=== PATIENT | male | born 1960 | race Caucasian/White ===

== ENCOUNTER 2019-09-18 15:15 | Inpatient (IN) | payer OTHER ==
[~2019-09-18] VITALS: Ht 188 cm; Wt 93.4 kg
--- OUTSIDE RECORDS SUMMARY | 2019-09-18 15:16 | XMS REPORT ---
Author Author [facility] Address Unknown Phone Unavailable Care Team Providers Care Speech Therapy Assistant Name Role Phone Unavailable Unavailable Payers Payer Name Policy Type Policy Number Effective Date Expiration Date Problems This patient has no known problems. Allergies, Adverse Reactions, Alerts Allergy Name Allergy Type Status Severity Reaction(s) Onset Date Inactive Date Treating Clinician Comments No Known Allergies DA Active U 2019-09-17 00:00:00 Medications This patient has no known medications. Results Test Description Test Time Test Comments Text Results Atomic Results Result Comments PROTHROMBIN TIME 2019-09-17 18:23:00 PROTHROMBIN TIME PATIENT (test code=PTP) 12.1 seconds 9.0-13.0 INTERNATIONAL NORMAL RATIO (test code=INR) 1.2 0.8-1.2 The therapeutic range for oral anticoagulant therapy formost indications is an international normalized ratio (INR)of between 2.0 and 3.0. The recommended therapeutic INRrange for various clinical situations is listed below: Clinical Situation INR range Pulmonary e mbolism treatment (2.0-3.0)Venous thrombosis treatmentVenous thrombosis prophylaxis (high risk surgery)Prevention of systemic embolism from: Acute myocardial infarction Valvular heart disease Atrial fibrillation Mechanical prosthetic heart valves (2.5-3.5) IS PATIENT ON ANTICOAGULANTS? NTHROMBOPLASTIN TIME [id number] 18:23:00* Test Item Value Reference Range Comments THROMBOPLASTIN TIME PARTIAL (test code=PTT) 31.2 seconds 25.5-34.3 Therapeutic Range for patients on Heparin Therapy is 2 to2.5 times their baseline PTT level. IS PATIENT ON ANTICOAGULANTS? NCOMPREHENSIVE METABOLIC [id number] 18:09:00 * Test Item Value Reference Range Comments SODIUM (test code=NA) 126 mmol/L 136-145 POTASSIUM (test code=K) 3.6 mmol/L 3.5-5.1 CHLORIDE (test code=CL) 93 mmol/L 101-109 CARBON DIOXIDE (test code=CO2) 25.0 mmol/L 21-32 ANION GAP (test code=GAP) 12 mmol/L 10-20 GLUCOSE (test code=GLU) 103 mg/dL 74-106 BLOOD UREA NITROGEN (test code=BUN) 23 mg/dL 3-21 CREATININE (test code=CREAT) 1.48 mg/dL 0.55-1.3 BUN/CREATININE RATIO (test code=BUN/CREA) 15.5 10-20 TOTAL PROTEIN (test code=PROT) 7.1 g/dL 6.5-8.4 ALBUMIN (test code=ALB) 3.0 g/dL 3.4-4.8 GLOBULIN (test code=GLOB) 4.1 G/DL 1-10 ALBUMIN/GLOBULIN RATIO (test code=A/G) 0.73 RATIO 0.75-1.50 CALCIUM (test code=CA) 8.1 mg/dL 8.4-10.2 BILIRUBIN TOTAL (test code=BILT) 1.50 mg/dL 0.0-1.0 SGOT/AST (test code=AST) 41 U/L 6-32 SGPT/ALT (test code=ALT) 11 U/L 12-78 Note: Change in REFERENCE RANGE due to new reagent method. ALKALINE PHOSPHATASE TOTAL (test code=ALKP) 88 U/L 38-126 CBC W/AUTO [id number] 17:54:00* Test Item Value Reference Range Comments WHITE BLOOD CELL (test code=WBC) 15.6 K/mm3 4.5-12.5 RED BLOOD CELL (test code=RBC) 4.10 mill/mm3 4.0-5.8 HEMOGLOBIN (test code=HGB) 14.4 gram/dL 13.0-17.5 HEMATOCRIT (test code=HCT) 42.2 % 42.0-52.0 MEAN CELL VOLUME (test code=MCV) 102.9 fL 80-98 MEAN CELL HGB (test code=MCH) 35.1 picogram 27.0-33.0 MEAN CELL HGB CONCETRATION (test code=MCHC) 34.1 gram/dL 33.0-36.0 RED CELL DISTRIBUTION WIDTH (test code=RDW) 12.9 % 11.6-16.2 RED CELL DISTRIBUTION WIDTH SD (test code=RDW-SD) 50.2 fL 37.0-51.0 PLATELET COUNT (test code=PLT) 105 K/mm3 150-450 MEAN PLATELET VOLUME (test code=MPV) 10.4 fL 6.7-11.0 NEUTROPHIL % (test code=NT%) 91.8 % 39.0-69.0 LYMPHOCYTE % (test code=LY%) 4.0 % 25.0-55.0 MONOCYTE % (test code=MO%) 3.7 % 0.0-10.0 EOSINOPHIL % (test code=EO%) 0.1 % 0.0-5.0 BASOPHIL % (test code=BA%) 0.1 % 0.0-1.0 NEUTROPHIL # (test code=NT#) 14.30 K/mm3 1.8-7.7 LYMPHOCYTE # (test code=LY#) 0.62 K/mm3 1.0-5.0 MONOCYTE # (test code=MO#) 0.58 K/mm3 0-0.8 EOSINOPHIL # (test code=EO#) 0.02 K/mm3 0.0-0.5 BASOPHIL # (test code=BA#) 0.02 K/mm3 0.0-0.2 MANUAL DIFF REQUIRED (test code=MDIFF) NO
[2019-09-18] MEDS ORDERED: MORPHINE SULFATE INJ 4 MG/ML INJ 1ML IV STA (15:56)
[2019-09-18] MEDS ORDERED: ONDANSETRON HCL INJ 2MG/ML 2ML 2 MG/ML VIAL IV STA (15:56)
[2019-09-18] MEDS ORDERED: SODIUM CHLORIDE 0.9% 1000ML 1,000 ML IV STA (15:56)
[2019-09-18] MEDS ORDERED: PIPER-TAZ 3.375 GM 50 ML IV STA (15:56)
[2019-09-18 16:48] LABS: BASOPHILS % 0.3 % (0.0-1.0); EOSINOPHILS % 0.2 % (0.0-6.0); HEMATOCRIT 41.5 % (38.2-49.6); HEMOGLOBIN 14.2 g/dL (14.0-18.0); LYMPHOCYTES # (AUTO) 0.9 (1.0-3.2); MEAN CORPUSCULAR HEMOGLOBIN 35.1 pg (28-32); MEAN CORPUSCULAR HGB CONC 34.2 g/dL (31-35); MEAN CORPUSCULAR VOLUME 102.5 fL (81-99); MONOCYTES # (AUTO) 1.2 (0.2-0.8); MONOCYTES % 9.6 % (4.4-11.3); NEUTROPHILS # (AUTO) 10.7 (2.1-6.9); NEUTROPHILS % 82.3 % (38.7-80.0); RED BLOOD COUNT 4.05 x10e6/uL (4.3-5.7); RED CELL DISTRIBUTION WIDTH 13.2 % (11.7-14.4)
[2019-09-18 16:55] LABS: INR 1.1; PROTHROMBIN TIME 14.9 seconds (11.9-14.5)
[2019-09-18 16:56] LABS: PARTIAL THROMBOPLASTIN TIME 37.4 seconds (23.8-35.5)
[2019-09-18] MEDS ORDERED: VANCOMYCIN 1GM/NS 250 ML 250 ML IV ONE (17:00)
[2019-09-18 17:05] LABS: ALBUMIN 3.1 g/dL (3.5-5.0); ALBUMIN/GLOBULIN RATIO 0.7 (0.8-2.0); CALCIUM 8.5 mg/dL (8.4-10.2); CREATININE, SERUM 1.38 mg/dL (0.72-1.25)
[2019-09-18 17:12] LABS: CREATINE KINASE MB 1.6 ng/mL (0-5.0)
[2019-09-18 17:19] LABS: B-TYPE NATRIURETIC PEPTIDE2 60.6 pg/mL (0-100)
[2019-09-18 17:21] LABS: PLATELET COUNT 97 x10e3/uL (140-360)
--- NOTE | 2019-09-18 18:40 | Diagnostic Imaging Report ---
EXAMINATION: CHEST SINGLE (PORTABLE) INDICATION: ^LE SWELLING ^[id number] ^[id number]. COMPARISON: None FINDINGS: AP view TUBES and LINES: None. LUNGS: Lungs are well inflated. There is no evidence of pneumonia or pulmonary edema. PLEURA: No pleural effusion or pneumothorax. HEART AND MEDIASTINUM: The cardiomediastinal silhouette is unremarkable. BONES AND SOFT TISSUES: No acute osseous lesion. Soft tissues are unremarkable. UPPER ABDOMEN: No free air under the diaphragm. IMPRESSION: No acute thoracic abnormality. Signed by: Carlos Manzo MD on 09/18/2019 6:38 PM
[2019-09-18] MEDS ORDERED: VANCOMYCIN 1GM/NS 250 ML 250 ML IV SCH (20:00)
[2019-09-18] MEDS: SODIUM CHLORIDE 0.9% 1000ML 1,000 ML IV SCH (20:03)
[2019-09-18] MEDS ORDERED: BYSTOLIC10 MG PO (20:18)
[2019-09-18] MEDS ORDERED: LOSARTAN POTASS50 MG PO (20:18)
[2019-09-18] MEDS ORDERED: PANTOPRAZOLE SO40 MG PO (20:18)
[2019-09-18] MEDS ORDERED: PREGABALIN75 MG PO (20:18)
[2019-09-18] MEDS ORDERED: AMLODIPINE BESYL5 MG PO (20:18)
[2019-09-18] MEDS ORDERED: LEVOTHYROXINE25 MCG PO (20:18)
[2019-09-18 20:54] LABS: PLATELET ESTIMATE SLIGHTLY DECREASED; PLATELET MORPHOLOGY COMMENT FEW LARGE; RBC MORPHOLOGY COMMENT NORMAL
[2019-09-18] MEDS: PIPER-TAZ 3.375 GM 50 ML IV SCH (23:38)
[2019-09-19 06:28] LABS: BASOPHILS % 0.3 % (0.0-1.0); EOSINOPHILS % 0.2 % (0.0-6.0); HEMATOCRIT 35.8 % (38.2-49.6); HEMOGLOBIN 12.6 g/dL (14.0-18.0); LYMPHOCYTES # (AUTO) 0.8 (1.0-3.2); LYMPHOCYTES % 7.5 % (18.0-39.1); MEAN CORPUSCULAR HGB CONC 35.2 g/dL (31-35); MEAN CORPUSCULAR VOLUME 99.4 fL (81-99); MONOCYTES # (AUTO) 1.2 (0.2-0.8); MONOCYTES % 12.1 % (4.4-11.3); NEUTROPHILS % 79.3 % (38.7-80.0); PLATELET COUNT 84 x10e3/uL (140-360); RED CELL DISTRIBUTION WIDTH 13.1 % (11.7-14.4)
[2019-09-19 06:47] LABS: ALANINE AMINOTRANSFERASE 9 IU/L (0-55); ALBUMIN 2.6 g/dL (3.5-5.0); ALBUMIN/GLOBULIN RATIO 0.8 (0.8-2.0); ALKALINE PHOSPHATASE 81 IU/L (40-150); ANION GAP 9.3 mmol/L (8-16); BLOOD UREA NITROGEN 15 mg/dL (7-26); BUN/CREATININE RATIO 14 (6-25); CALCIUM 7.8 mg/dL (8.4-10.2); CARBON DIOXIDE 22 mmol/L (22-29); CHLORIDE 101 mmol/L (98-107); CREATININE, SERUM 1.08 mg/dL (0.72-1.25); EST GLOMERULAR FILTRATION RATE > 60 ML/MIN (60-); GLUCOSE 97 mg/dL (74-118); POTASSIUM 3.3 mmol/L (3.5-5.1); SODIUM 129 mmol/L (136-145)
[2019-09-19] MEDS: MORPHINE SULFATE INJ 4 MG/ML INJ 1ML IV PRN ×2 (08:15→23:37)
[2019-09-19] MEDS: PIPER-TAZ 3.375 GM 50 ML IV SCH (08:15)
[2019-09-19] MEDS: SODIUM CHLORIDE 0.9% 1000ML 1,000 ML IV SCH ×2 (08:39→13:00)
--- NOTE | 2019-09-19 10:54 | NUR ---
AMBULATORY TO RESTROOM. PT STILL DOES NOT WANT TO GET INTO GOWN. VSS. IVFS RUNNING. AAOX4. STEADY GAIT.
--- NOTE | 2019-09-19 12:28 | NUR ---
RCD PT FROM ER BY BED PT IS ALERT AND ORIENTED VITALS CHECKED PT RESTING ON BED VITALS CHECKED ADMISSION ASSESSMENT AND HISTORY DONE REDNESS ,CELLULITIS AND BLISTER ON LEFT LOWER LEG ,IV PATENT BY SALINE FLUSH INSTRUCTED PT AND FAMILY REGARDING HOSPITAL POLICY AND ROUTINE BED LOW AND LOCKED CALL LIGHT IN REACH
[2019-09-19] MEDS ORDERED: POTASSIUM CHLORIDE 10MEQ EA PO NR (12:45)
[2019-09-19 13:00] VITALS: BP 124/73
[2019-09-19 13:35] VITALS: BP 124/73
--- NOTE | 2019-09-19 13:58 | History and Physical ---
CHIEF COMPLAINT: Left leg redness, pain, and cellulitis since 5 days. HISTORY OF PRESENT ILLNESS: This is a 59-year-old male with a past medical history of hypertension, hypothyroidism, GERD, and fatty liver, was in usual status of health until 5 days ago, he came to notice that he has a left leg pain and redness and cellulitis. The patient is getting worse. The patient was seen by Dr. Taveras in office and sent to the emergency room, found to have no DVT, but has severe left leg cellulitis. No chest pain. No shortness of breath. No nausea. No vomiting. No cough. No fever. No abdomen pain. No dysuria. No hematuria. No bleeding per rectum. No cough. No shortness of breath. PAST MEDICAL HISTORY: 1. Hypertension. 2. GERD. 3. Hypothyroidism. 4. Fatty liver. PAST SURGICAL HISTORY: History of back surgery, [place] physician in March 2019. FAMILY HISTORY: Father, CA of bladder, diagnosed with hypertension. Mother, hypertension. SOCIAL HISTORY: The patient used to smoke cigarettes and drink alcohol regularly. No illicit drug use. MEDICATION LIST: Attached. ALLERGIES: NO KNOWN DRUG ALLERGIES. REVIEW OF SYSTEMS: CONSTITUTIONAL: Denies fatigue and weakness. HEENT: No diplopia or blurring of vision. CARDIOPULMONARY: No chest pain. No shortness of breath. No cough. ALIMENTARY SYSTEM: No nausea. No vomiting. GENITOURINARY SYSTEM: No dysuria. No hematuria. MUSCULOSKELETAL SYSTEM: No joint pain, but has left leg pain and redness. CENTRAL NERVOUS SYSTEM: No focal weakness. No seizure. PHYSICAL EXAMINATION: GENERAL: This is a 59-year-old male, who is alert and oriented x3, in no gross distress. VITAL SIGNS: Temperature 98.2, pulse 80, respiratory rate 18, and blood pressure 130/80. HEENT: Head is atraumatic and normocephalic. Pupils bilaterally equal to light. Extraocular muscles intact. NECK: Supple. No JVD. No carotid bruit. LUNGS: Clear to auscultation and percussion bilaterally. No added sounds. HEART: S1 and S2. Regular rate and rhythm. No S3, S4, or murmur. ABDOMEN: Soft and nontender. No guarding. No rigidity. EXTREMITIES: Left leg from thigh to knee and below-knee redness, tenderness with one blister. Peripheral pulses +1. TELEVISION ENGINEER: Grossly nonfocal. LABORATORY DATA: Sodium 126. Other lab is okay. WBC 12.98, hemoglobin and hematocrit normal. Chest x-ray normal. ASSESSMENT: 1. Severe left leg cellulitis, rule out MRSA, rule out other infection. No DVT by venous Doppler. 2. Hypertension. 3. Hyponatremia. 4. Hypothyroidism. 5. Fatty liver. PLAN: Admit the patient to medical floor. IV vancomycin 1 g q.24 hours and Zosyn 3.375 IV q.8 hours. ID consult, Dr. Gonzalez. Blood culture. Continue home medicine. IV fluid normal saline at 100 mL/h. Case discussed with the patient and , total condition and prognosis. MD JACQUE Ramirez/ISSA /[id number]
[2019-09-19] MEDS: DOXYCYCLINE 100MG/NS 100ML 100 ML IV SCH (14:45)
[2019-09-19] MEDS: PANTOPRAZOLE SOD 40 MG TABEC PO SCH (15:00)
[2019-09-19] MEDS: NEBIVOLOL 10 MG TAB PO SCH (15:00)
[2019-09-19] MEDS: LOSARTAN POTASSIUM 100 MG TAB PO SCH (15:00)
[2019-09-19] MEDS: AMLODIPINE BESYLATE 5 MG TAB PO SCH (15:00)
[2019-09-19 16:10] VITALS: BP 124/73
[2019-09-19 16:55] VITALS: BP 113/73
[2019-09-19] MEDS: VANCOMYCIN 1GM/NS 250 ML 250 ML IV SCH (17:00)
[2019-09-19] MEDS: PREGABALIN 75 MG CAP PO SCH (17:00)
--- NOTE | 2019-09-19 18:43 | NUR ---
PT RESTING ON BED BED SIDE REPORT GIVEN TO ONCOMING NURSE
[2019-09-19 20:00] VITALS: BP 117/75
[2019-09-19 21:30] VITALS: BP 117/75
[2019-09-19] MEDS: MEROPENEM 1GM 100 ML IV SCH (21:30)
--- NOTE | 2019-09-19 21:30 | NUR ---
PATIENT IS AOX4, NO SIGNS OF DISTRESS NOTED. IS AT BEDSIDE AND PATIENT VOICES NO PAIN AT THIS TIME. IV FLUIDS AND ANTIBIOTICS ARE RUNNING AT ORDERED RATE. AFTER TAKING A SHOWER, BOTH BLISTERS ON LEFT FOOT HAVE BURST, DRAINAGE NOTED. WOUND NOW DRESSED AND IS CLEAN DRY AND INTACT. BED IS IN LOWEST POSITION, SIDE RAILS ARE UP, CALL LIGHT WITHIN REACH, WILL CONTINUE TO MONITOR.
--- NOTE | 2019-09-19 22:04 | Consultation ---
DATE OF CONSULTATION: 09/19/2019 REASON FOR CONSULTATION: Cellulitis of the leg. HISTORY OF PRESENT ILLNESS: This patient, who is very pleasant 59-year-old gentleman. He drinks 2 shots a day. He has history of fatty liver, history of hypothyroidism, and history of hypertension. The patient comes in with redness and swelling of his leg, started 5 days ago. The patient was seen by Dr. Taveras and he was sent to the emergency room. In emergency room, he has no DVT. He was started on IV vancomycin and Zosyn. He is feeling better, but I was asked to see him. The patient is currently lying in bed comfortably. The patient, who tells me that he does not go to the water. He does not fish, but he does say he few days before that ate cooked fried shrimp. The patient has history of hypertension, GERD, hypothyroidism, and fatty liver. PAST SURGICAL HISTORY: Back surgery in March 2019. FAMILY HISTORY: Cancer of bladder. SOCIAL HISTORY: Smokes cigarette and drink alcohol regularly. REVIEW OF SYSTEMS: GENERAL: He is currently feeling well. HEENT: Negative. PULMONARY: Negative. CARDIAC: Negative. PHYSICAL EXAMINATION: GENERAL: He is currently alert and oriented. Does not seem to be in acute distress. VITAL SIGNS: Stable, currently afebrile. HEENT: Not icteric. NECK: Supple. CHEST: Clear. HEART: S1 and S2. No S3, S4, or murmur. ABDOMEN: Soft. Bowel sounds present. No tenderness. EXTREMITIES: On the leg, there is erythema and edema involving the whole leg. There is a bullous lesion noted at the ankle side. The pulse was strong. IMPRESSION: Left leg cellulitis, severe. I am concerned about in a patient who have liver disease. I would recommend to put him on meropenem and doxycycline. He has a bullous, which we could drain. Blood culture was sent. He is already showing sign of improvement clinically and he said he is not any worse. We will reassess in the morning. We will follow. MD ROSS Quijano/ISSA /[id number]
[2019-09-19] MEDS: ONDANSETRON HCL INJ 2MG/ML 2ML 2 MG/ML VIAL IV PRN (23:38)
[2019-09-20] VITALS (8 sets, daily range): BP systolic 100–140; BP diastolic 61–75
[2019-09-20] MEDS: DOXYCYCLINE 100MG/NS 100ML 100 ML IV SCH ×2 (03:01→14:40)
--- NOTE | 2019-09-20 03:49 | NUR ---
PATIENT COMPLAINED OF PAIN AT IV SITE AT LEFT AC. NEW IV STARTED ON RIGHT FOREARM, IT IS PATENT AND INTACT. IV REMOVED FROM RIGHT AC. Addendum: 09/20/19 at 0350 by Kyle Lange RN LEFT AC
[2019-09-20 05:39] LABS: BASOPHILS % 0.4 % (0.0-1.0); EOSINOPHILS # (AUTO) 0.1 (0.0-0.4); EOSINOPHILS % 1.5 % (0.0-6.0); HEMATOCRIT 36.8 % (38.2-49.6); HEMOGLOBIN 12.6 g/dL (14.0-18.0); LYMPHOCYTES # (AUTO) 1.3 (1.0-3.2); LYMPHOCYTES % 14.3 % (18.0-39.1); MEAN CORPUSCULAR HEMOGLOBIN 34.2 pg (28-32); MEAN CORPUSCULAR HGB CONC 34.2 g/dL (31-35); MONOCYTES % 11.3 % (4.4-11.3); NEUTROPHILS # (AUTO) 6.4 (2.1-6.9); NEUTROPHILS % 71.7 % (38.7-80.0); PLATELET COUNT 81 x10e3/uL (140-360); RED BLOOD COUNT 3.68 x10e6/uL (4.3-5.7); RED CELL DISTRIBUTION WIDTH 13.2 % (11.7-14.4)
[2019-09-20] MEDS: MEROPENEM 1GM 100 ML IV SCH ×3 (05:47→20:25)
[2019-09-20 05:54] LABS: ANION GAP 12.3 mmol/L (8-16); BLOOD UREA NITROGEN 10 mg/dL (7-26); BUN/CREATININE RATIO 11 (6-25); CARBON DIOXIDE 17 mmol/L (22-29); CHLORIDE 102 mmol/L (98-107); EST GLOMERULAR FILTRATION RATE > 60 ML/MIN (60-); GLUCOSE 79 mg/dL (74-118); POTASSIUM 3.3 mmol/L (3.5-5.1); SODIUM 128 mmol/L (136-145)
[2019-09-20] MEDS: LEVOTHYROXINE SODIUM 25 MCG TABLET PO SCH (06:54)
--- NOTE | 2019-09-20 07:00 | NUR ---
RCD PT AT BED PT IS ALERT AND ORIENTED RESTING ON BED ,IV PATENT BY SALINE FLUSH BED LOW AND LOCKED CALL LIGHT IN REACH
[2019-09-20] MEDS: MORPHINE SULFATE INJ 4 MG/ML INJ 1ML IV PRN (08:50)
[2019-09-20] MEDS: LOSARTAN POTASSIUM 100 MG TAB PO SCH (08:57)
[2019-09-20] MEDS: AMLODIPINE BESYLATE 5 MG TAB PO SCH (08:57)
[2019-09-20] MEDS: NEBIVOLOL 10 MG TAB PO SCH (08:57)
[2019-09-20] MEDS: PANTOPRAZOLE SOD 40 MG TABEC PO SCH (08:57)
[2019-09-20] MEDS: PREGABALIN 75 MG CAP PO SCH ×2 (08:57→17:00)
[2019-09-20] MEDS: SOD CHL 0.45%/POT CHL 20MEQ 1,000 ML IV SCH (09:15)
[2019-09-20] MEDS: MUPIROCIN 2% OINT 22 GM TUBE TOP SCH (10:00)
--- NOTE | 2019-09-20 10:00 | NUR ---
dressing done on left lower leg
--- NOTE | 2019-09-20 11:24 | NUR ---
Met with pt. He lives at home independently with his . He is employed. He has no home health, no DME and denies any dc needs. DC Plan: Return home to , and to work.
[2019-09-20] MEDS: MORPHINE SULFATE 2 MG/ML SYR 1ML IV PRN (16:46)
[2019-09-20] MEDS: VANCOMYCIN 1GM/NS 250 ML 250 ML IV SCH (17:00)
--- NOTE | 2019-09-20 18:51 | NUR ---
PT RESTING ON BED BED SIDE REPORT GIVEN TO ONCOMING NURSE
--- NOTE | 2019-09-20 19:30 | NUR ---
Walking rounds complete, pt alert resp even and unlabored, no distress noted. call light in reach.
[2019-09-21] VITALS (8 sets, daily range): BP systolic 108–123; BP diastolic 61–75
[2019-09-21] MEDS: DOXYCYCLINE 100MG/NS 100ML 100 ML IV SCH ×2 (03:00→14:48)
[2019-09-21] MEDS: ONDANSETRON HCL INJ 2MG/ML 2ML 2 MG/ML VIAL IV PRN (04:08)
[2019-09-21] MEDS: MORPHINE SULFATE 2 MG/ML SYR 1ML IV PRN ×3 (04:08→15:20)
[2019-09-21] MEDS: SOD CHL 0.45%/POT CHL 20MEQ 1,000 ML IV SCH (04:08)
[2019-09-21] MEDS: MEROPENEM 1GM 100 ML IV SCH ×3 (05:00→22:00)
[2019-09-21] MEDS: LEVOTHYROXINE SODIUM 25 MCG TABLET PO SCH (05:00)
[2019-09-21 06:11] LABS: ALANINE AMINOTRANSFERASE 16 IU/L (0-55); ALBUMIN 2.6 g/dL (3.5-5.0); ALBUMIN/GLOBULIN RATIO 0.8 (0.8-2.0); ALKALINE PHOSPHATASE 122 IU/L (40-150); ANION GAP 12.1 mmol/L (8-16); BLOOD UREA NITROGEN 7 mg/dL (7-26); BUN/CREATININE RATIO 9 (6-25); CALCIUM 8.6 mg/dL (8.4-10.2); CARBON DIOXIDE 20 mmol/L (22-29); CHLORIDE 103 mmol/L (98-107); CREATININE, SERUM 0.74 mg/dL (0.72-1.25); EST GLOMERULAR FILTRATION RATE > 60 ML/MIN (60-); GLUCOSE 101 mg/dL (74-118); POTASSIUM 3.1 mmol/L (3.5-5.1); SODIUM 132 mmol/L (136-145)
--- NOTE | 2019-09-21 07:33 | NUR ---
Walking rounds complete, report given to oncoming nurse.
[2019-09-21] MEDS: PANTOPRAZOLE SOD 40 MG TABEC PO SCH (09:04)
[2019-09-21] MEDS: AMLODIPINE BESYLATE 5 MG TAB PO SCH (09:04)
[2019-09-21] MEDS: PREGABALIN 75 MG CAP PO SCH ×2 (09:06→17:45)
[2019-09-21] MEDS: NEBIVOLOL 10 MG TAB PO SCH (09:07)
[2019-09-21] MEDS: LOSARTAN POTASSIUM 100 MG TAB PO SCH (09:07)
--- NOTE | 2019-09-21 09:08 | NUR ---
Dr Davenport here for rounds, new order recvd to cancel Abdomen/liver ultrasound since the patient refused it
[2019-09-21] MEDS ORDERED: POTASSIUM CHLORIDE 10MEQ EA PO ONE (09:55)
[2019-09-21] MEDS: MUPIROCIN 2% OINT 22 GM TUBE TOP SCH (11:11)
--- NOTE | 2019-09-21 14:20 | NUR ---
WOUND CARE CONSULT FOR 59 YO MALE HX OF CELLULITIS FOUZIA 22 ON CONSERVATIVE PUP STATUS AND INTERVENTIONS AND VISCO MATTRESS LABS: WBC-8.96 HGB_12.6 GLUCOSE-101 SKIN ASSESSMENT COMPLETE PATIENT PRESENTS WITH LEFT LOWER LEG RED AND SWOLLEN WITH PARTIAL THICKNESS OPENING 5CM X 11CM X 0.1CM RECOMMENDATIONS: NURSING TO CONTINUE TO MAINTAIN CONSERVATIVE PUP STATUS AND INTERVENTIONS AND VISCO MATTRESS NURSING TO CONTINUE TO ASSIST PATIENT OUT OF BED FOR MEALS AND MUCH TOLERATED NURSING TO CONTINUE TO ASSIST PATIENT NEEDED WITH MEALS AND NUTRITIONAL SUPPLEMENTS TO ENSURE PROPER REQUIREMENTS FOR HEALING NURSING TO CONTINUE TO OFFLOAD FEET AND HEELS NEEDED WITH PILLOW SUSPENSION WHEN IN BED NURSING TO CLEAN LEFT LOWER LEG PARTIAL THICKNESS OPENING WITH NORMAL SALINE DAILY AND APPLY PURACOL PLUS AG (COLLAGEN) AND COVER WITH ALLEVYN FOAM DRESSING Addendum: 09/21/19 at 1428 by Jeff Booker RN Amended: Links added.
[2019-09-21] MEDS: VANCOMYCIN 1GM/NS 250 ML 250 ML IV SCH (17:45)
--- NOTE | 2019-09-21 19:05 | NUR ---
Bedside nursing shift report completed with morning nurse. Pt lying in bed, HOB 45 degrees. Denies pain at this time. Call light within reach. Bed low and locked. Will continue to monitor.
[2019-09-22 00:33] VITALS: BP 127/76
[2019-09-22] MEDS: MORPHINE SULFATE 2 MG/ML SYR 1ML IV PRN (02:01)
[2019-09-22] MEDS: DOXYCYCLINE 100MG/NS 100ML 100 ML IV SCH (02:59)
[2019-09-22 05:20] VITALS: BP 108/73
[2019-09-22] MEDS: LEVOTHYROXINE SODIUM 25 MCG TABLET PO SCH (05:46)
[2019-09-22] MEDS: MEROPENEM 1GM 100 ML IV SCH (05:46)
[2019-09-22 06:22] LABS: BASOPHILS % 0.4 % (0.0-1.0); EOSINOPHILS # (AUTO) 0.3 (0.0-0.4); EOSINOPHILS % 3.3 % (0.0-6.0); HEMATOCRIT 35.3 % (38.2-49.6); HEMOGLOBIN 12.3 g/dL (14.0-18.0); LYMPHOCYTES # (AUTO) 1.6 (1.0-3.2); LYMPHOCYTES % 15.3 % (18.0-39.1); MEAN CORPUSCULAR HEMOGLOBIN 34.7 pg (28-32); MEAN CORPUSCULAR HGB CONC 34.8 g/dL (31-35); MEAN CORPUSCULAR VOLUME 99.7 fL (81-99); MONOCYTES % 9.5 % (4.4-11.3); NEUTROPHILS # (AUTO) 7.3 (2.1-6.9); NEUTROPHILS % 70.3 % (38.7-80.0); PLATELET COUNT 159 x10e3/uL (140-360); RED BLOOD COUNT 3.54 x10e6/uL (4.3-5.7); RED CELL DISTRIBUTION WIDTH 12.8 % (11.7-14.4)
[2019-09-22 07:00] LABS: ANION GAP 11.5 mmol/L (8-16); BLOOD UREA NITROGEN 6 mg/dL (7-26); BUN/CREATININE RATIO 9 (6-25); CALCIUM 8.8 mg/dL (8.4-10.2); CARBON DIOXIDE 20 mmol/L (22-29); CHLORIDE 102 mmol/L (98-107); CREATININE, SERUM 0.68 mg/dL (0.72-1.25); EST GLOMERULAR FILTRATION RATE > 60 ML/MIN (60-); GLUCOSE 90 mg/dL (74-118); POTASSIUM 3.5 mmol/L (3.5-5.1); SODIUM 130 mmol/L (136-145)
--- NOTE | 2019-09-22 07:04 | NUR ---
BS shift report completed. Pt no acute distress noted.
[2019-09-22 08:00] VITALS: BP 112/69
[2019-09-22] MEDS: PANTOPRAZOLE SOD 40 MG TABEC PO SCH (08:33)
[2019-09-22] MEDS: PREGABALIN 75 MG CAP PO SCH (08:33)
[2019-09-22] MEDS: LOSARTAN POTASSIUM 100 MG TAB PO SCH (08:33)
[2019-09-22] MEDS: NEBIVOLOL 10 MG TAB PO SCH (08:33)
[2019-09-22] MEDS: AMLODIPINE BESYLATE 5 MG TAB PO SCH (08:33)
[2019-09-22 08:36] VITALS: BP 112/69
[2019-09-22] MEDS ORDERED: POTASSIUM CHLORIDE 10MEQ EA PO ONE (09:30)
[2019-09-22] MEDS ORDERED: LEVAQUIN500 MG PO (11:29)
[2019-09-22] MEDS: MUPIROCIN 2% OINT 22 GM TUBE TOP SCH (11:33)
[2019-09-22 12:00] VITALS: BP 119/69
--- NOTE | 2019-09-22 12:11 | NUR ---
Patient discharged home, discharge order received from Dr Yovany Cid, prescription given, Dressing changed, patient aware about his f/up appointments, IV Canula removed with tip intact, no ss of infiltration, transported via wheelchair to [facility], family at bed side, denies any pain, no distress noted.
--- NOTE | 2019-09-22 17:28 | Consultation ---
DATE OF CONSULTATION: 09/20/2019 HISTORY OF PRESENT ILLNESS: Mr. Gay is a 59-year-old white male, referred to me for evaluation of thrombocytopenia. No history of hematochezia, melena, hematuria, hematemesis, or hemoptysis. The patient had presented with severe cellulitis of the left lower extremity. SOCIAL HISTORY: History of excessive alcohol intake. FAMILY HISTORY: has been treated for hepatitis C. ALLERGIES: REPORTED NONE. MEDICATIONS: At this time, 1. Vancomycin. 2. Doxycycline. 3. Meropenem. 4. Potassium. 5. Ondansetron. 6. Amlodipine. 7. Synthroid. 8. Nebivolol. 9. Pregabalin. 10. Protonix. 11. Losartan. REVIEW OF SYSTEMS: HEENT: Normal. CARDIAC: History of hypertension. RESPIRATORY: Normal. GI: History of being exposed to hepatitis C. : Normal. MUSCULOSKELETAL: The patient has severe cellulitis of the left lower extremity up to the knee joint. NEUROENDOCRINE: History of hypothyroidism. PHYSICAL EXAMINATION: GENERAL: A moderately built male. NECK: No palpable adenopathy. HEART: Within normal limits. LUNGS: Clear. ABDOMEN: Soft. RECTAL: Exam deferred. CENTRAL NERVOUS SYSTEM: Essentially normal. EXTREMITIES: Severe cellulitis of the left lower extremity from the ankle up to the knee joint. LABORATORY DATA: Lab shows a hemoglobin of 12.6, hematocrit 36.8, white count of 8960, and platelets of 81,000. INR 1.1. Bilirubin 1.5, SGOT 9, SGPT 57, and alkaline phosphatase 81. Sodium 128, potassium 3.3, chloride 102, CO2 of 17, BUN 10, creatinine 0.9, and glucose 79. IMPRESSION: 1. Anemia of chronic disease. 2. Thrombocytopenia. 3. History of fatty metamorphosis of the liver. 4. Hypothyroidism. 5. History of chronic alcoholism. 6. History of hypertension. 7. Left leg cellulitis. 8. Hyponatremia of 126. 9. High LFTs with bilirubin of 1.5 and SGOT of 64. 10. Hypoalbuminemia of 3.1. 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 12. Possible hepatitis C. PLAN, COMMENTS AND SUGGESTIONS: Clinically, the patient has "spider angioma." This is highly suggestive of cirrhosis rather than fatty metamorphosis. I suggested ultrasound of the liver. However, he claims that he wants one physician to take care of him and refuses to have an ultrasound of the liver. Being exposed to hepatitis C through his , I have also suggested hepatitis C profile. Again, his comments were I want one physician to take care of me. Subsequently, after this conversation, I did tell him that I will step down. The patient should have a hepatitis C profile and the patient should have ammonia level. The patient should have a baseline alpha-fetoprotein. The patient should be observed closely as he does have cirrhosis especially with hepatitis C, 25% of these people will get hepatoma. Thank you very much for allowing me to participate in management of this very difficult individual. I will step down. MD BOOGIE Cruz/MODL /[id number]
== END 2019-09-22 12:09 | disposition home or self-care (01) | DRG 603 ==
LOC: ER 15:15 → ERHOLD 19:23 → MED/SURG2 09-19 12:35
PROVIDERS: ADMIT Internal Medicine; ATTEND Internal Medicine
DX: L03.116 Cellulitis of left lower limb (principal); E87.1 Hypo-osmolality and hyponatremia; L97.919 Non-pressure chronic ulcer of unspecified part of right lower leg with unspecified severity; E03.9 Hypothyroidism, unspecified; K21.9 Gastro-esophageal reflux disease without esophagitis; K76.0 Fatty (change of) liver, not elsewhere classified; D63.8 Anemia in other chronic diseases classified elsewhere; F10.21 Alcohol dependence, in remission; I10 Essential (primary) hypertension; E88.09 Other disorders of plasma-protein metabolism, not elsewhere classified; D69.6 Thrombocytopenia, unspecified; K74.60 Unspecified cirrhosis of liver; F10.20 Alcohol dependence, uncomplicated
CPT/HCPCS: 36415; 71045; 80048; 80053; 82550; 82553; 83605; 83880; 84484; 85025; 85610; 85730; 87040; 87071; 87205; 93971; 96361; 99284; J2270; J2405; J2543; J3370; J7030

== ENCOUNTER → 2021-05-10 | Outpatient (CLI) | payer BC, OTHER ==
[~2021-05-10] MED LIST: ALBUMIN 25% 12.5GM 50ML 100 ML IV ONE; ALBUMIN 25% 12.5GM 50ML 150 ML IV ONE; ALBUMIN 25% 12.5GM 50ML 50 ML IV ONE; AMLODIPINE BESYL5 MG PO; BYSTOLIC10 MG PO; LEVAQUIN500 MG PO; LEVOTHYROXINE25 MCG PO; LOSARTAN POTASS50 MG PO; PANTOPRAZOLE SO40 MG PO; PREGABALIN75 MG PO
[2021-05-10 08:58] LABS: HEMOGLOBIN 9.5 g/dL (14.0-18.0)
[2021-05-10 09:12] LABS: INR 1.32; PROTHROMBIN TIME 17.4 seconds (11.9-14.5)
[2021-05-10 09:13] LABS: PARTIAL THROMBOPLASTIN TIME 39.9 seconds (23.8-35.5)
== END ==
LOC: US 08:13
PROVIDERS: ATTEND Internal Medicine Gastroenterology
DX: K57.30 Diverticulosis of large intestine without perforation or abscess without bleeding (principal); R74.9 Abnormal serum enzyme level, unspecified; R16.0 Hepatomegaly, not elsewhere classified; D69.6 Thrombocytopenia, unspecified; K70.0 Alcoholic fatty liver; Z86.010 Personal history of colon polyps
CPT/HCPCS: 36415; 49083; 85014; 85049; 85610; 85730

== ENCOUNTER → 2021-05-24 | Outpatient (CLI) | payer BC ==
[~2021-05-24] MED LIST changes: -ALBUMIN 25% 12.5GM 50ML 100 ML IV ONE
== END ==
LOC: US 09:44
PROVIDERS: ATTEND Internal Medicine Gastroenterology
DX: R18.8 Other ascites (principal); R16.0 Hepatomegaly, not elsewhere classified; D69.6 Thrombocytopenia, unspecified; R94.5 Abnormal results of liver function studies
CPT/HCPCS: 49083; C1729

== ENCOUNTER → 2021-06-07 | Outpatient (CLI) | payer BC ==
[~2021-06-07] MED LIST changes: -ALBUMIN 25% 12.5GM 50ML 150 ML IV ONE; +ALBUMIN 25% 12.5GM 50ML 200 ML IV ONE; -ALBUMIN 25% 12.5GM 50ML 50 ML IV ONE
== END ==
LOC: US 09:22
PROVIDERS: ATTEND Internal Medicine
DX: R18.8 Other ascites (principal); D69.6 Thrombocytopenia, unspecified; R16.0 Hepatomegaly, not elsewhere classified; R74.8 Abnormal levels of other serum enzymes
CPT/HCPCS: 49083

== ENCOUNTER → 2021-06-22 | Outpatient (CLI) | payer BC ==
[~2021-06-22] MED LIST changes: -ALBUMIN 25% 12.5GM 50ML 200 ML IV ONE
[2021-06-22 12:15] LABS: INR 1.34; PROTHROMBIN TIME 17.7 seconds (11.9-14.5)
[2021-06-22 12:16] LABS: PARTIAL THROMBOPLASTIN TIME 39.2 seconds (23.8-35.5)
== END ==
LOC: US 11:35
PROVIDERS: ATTEND Internal Medicine Gastroenterology
DX: R18.8 Other ascites (principal); D69.6 Thrombocytopenia, unspecified; R16.0 Hepatomegaly, not elsewhere classified; R74.8 Abnormal levels of other serum enzymes
CPT/HCPCS: 36415; 49083; 77066; 85014; 85049; 85610; 85730; C1729

== ENCOUNTER → 2021-07-06 | Outpatient (CLI) | payer BC ==
[~2021-07-06] MED LIST changes: +ALBUMIN 25% 12.5GM 50ML 200 ML IV ONE
== END ==
LOC: US 11:16
PROVIDERS: ATTEND Internal Medicine
DX: R18.8 Other ascites (principal); D69.6 Thrombocytopenia, unspecified; R74.01 Elevation of levels of liver transaminase levels; R16.0 Hepatomegaly, not elsewhere classified
CPT/HCPCS: 49083

== ENCOUNTER → 2021-07-25 | Outpatient (CLI) | payer BC ==
[2021-07-25 13:12] LABS: HEMOGLOBIN 10.6 g/dL (14.0-18.0)
[2021-07-25 13:28] LABS: INR 1.36; PROTHROMBIN TIME 17.8 seconds (11.9-14.5)
== END ==
LOC: US 12:48
PROVIDERS: ATTEND Internal Medicine Gastroenterology
DX: R18.8 Other ascites (principal); R74.8 Abnormal levels of other serum enzymes; R16.0 Hepatomegaly, not elsewhere classified; D69.6 Thrombocytopenia, unspecified
CPT/HCPCS: 36415; 49083; 85014; 85049; 85610; 85730

== ENCOUNTER → 2021-08-07 | Outpatient (CLI) | payer BC ==
[~2021-08-07] MED LIST changes: +ALBUMIN 25% 12.5GM 50ML 100 ML IV ONE
== END ==
LOC: US 13:03
PROVIDERS: ATTEND Internal Medicine Gastroenterology
DX: R18.8 Other ascites (principal); R74.8 Abnormal levels of other serum enzymes; R16.0 Hepatomegaly, not elsewhere classified; D69.6 Thrombocytopenia, unspecified
CPT/HCPCS: 49083

== ENCOUNTER → 2021-08-17 | Outpatient (CLI) | payer BC ==
[~2021-08-17] MED LIST changes: -ALBUMIN 25% 12.5GM 50ML 100 ML IV ONE
== END ==
LOC: US 13:10
PROVIDERS: ATTEND Internal Medicine Gastroenterology
DX: R18.8 Other ascites (principal); R74.8 Abnormal levels of other serum enzymes; R16.0 Hepatomegaly, not elsewhere classified; D69.6 Thrombocytopenia, unspecified
CPT/HCPCS: 49083; C1729

== ENCOUNTER → 2021-08-31 | Outpatient (CLI) | payer BC ==
[~2021-08-31] MED LIST changes: +ALBUMIN 25% 12.5GM 50ML 100 ML IV ONE
[2021-08-31 11:38] LABS: HEMOGLOBIN 10.1 g/dL (14.0-18.0)
[2021-08-31 11:49] LABS: INR 1.25; PROTHROMBIN TIME 16.5 seconds (11.9-14.5)
[2021-08-31 11:50] LABS: PARTIAL THROMBOPLASTIN TIME 38.2 seconds (23.8-35.5)
== END ==
LOC: US 11:19
PROVIDERS: ATTEND Internal Medicine Gastroenterology
DX: R18.8 Other ascites (principal); R74.8 Abnormal levels of other serum enzymes; D69.6 Thrombocytopenia, unspecified; R16.0 Hepatomegaly, not elsewhere classified
CPT/HCPCS: 36415; 49083; 85014; 85049; 85610; 85730

== ENCOUNTER → 2021-09-12 | Outpatient (CLI) | payer BC ==
[~2021-09-12] MED LIST changes: +ALBUMIN 25% 12.5GM 50ML 150 ML IV ONE; -ALBUMIN 25% 12.5GM 50ML 200 ML IV ONE; +ALBUMIN 25% 12.5GM 50ML 50 ML IV ONE
== END ==
LOC: US 10:22
PROVIDERS: ATTEND Internal Medicine Gastroenterology
DX: R74.8 Abnormal levels of other serum enzymes (principal); R16.0 Hepatomegaly, not elsewhere classified; R18.8 Other ascites; D69.6 Thrombocytopenia, unspecified
CPT/HCPCS: 49083; C1729

== ENCOUNTER → 2021-09-25 | Outpatient (CLI) | payer BC ==
[~2021-09-25] MED LIST changes: -ALBUMIN 25% 12.5GM 50ML 150 ML IV ONE; +ALBUMIN 25% 12.5GM 50ML 200 ML IV ONE; -ALBUMIN 25% 12.5GM 50ML 50 ML IV ONE
== END ==
LOC: US 10:49
PROVIDERS: ATTEND Internal Medicine Gastroenterology
DX: R18.8 Other ascites (principal); R16.0 Hepatomegaly, not elsewhere classified; D69.6 Thrombocytopenia, unspecified; R74.8 Abnormal levels of other serum enzymes
CPT/HCPCS: 49083; C1729

== ENCOUNTER → 2021-10-06 | Outpatient (CLI) | payer BC ==
[~2021-10-06] MED LIST changes: -ALBUMIN 25% 12.5GM 50ML 100 ML IV ONE
[2021-10-06 09:41] LABS: HEMOGLOBIN 10.6 g/dL (14.0-18.0)
[2021-10-06 10:15] LABS: INR 1.24; PROTHROMBIN TIME 16.7 seconds (11.9-14.5)
[2021-10-06 10:16] LABS: PARTIAL THROMBOPLASTIN TIME 35.5 seconds (23.8-35.5)
== END ==
LOC: US 08:34
PROVIDERS: ATTEND Internal Medicine Gastroenterology
DX: R18.8 Other ascites (principal); D69.6 Thrombocytopenia, unspecified; R16.0 Hepatomegaly, not elsewhere classified; R74.9 Abnormal serum enzyme level, unspecified
CPT/HCPCS: 36415; 49083; 85014; 85049; 85610; 85730; C1729

== ENCOUNTER → 2021-10-18 | Outpatient (CLI) | payer BC ==
[~2021-10-18] MED LIST changes: +ALBUMIN 25% 12.5GM 50ML 100 ML IV ONE; -ALBUMIN 25% 12.5GM 50ML 200 ML IV ONE
== END ==
LOC: US 11:06
PROVIDERS: ATTEND Internal Medicine
DX: R18.8 Other ascites (principal); D69.6 Thrombocytopenia, unspecified; R16.0 Hepatomegaly, not elsewhere classified; R74.8 Abnormal levels of other serum enzymes
CPT/HCPCS: 49083

== ENCOUNTER → 2021-10-31 | Outpatient (CLI) | payer BC ==
[~2021-10-31] MED LIST changes: +ALBUMIN 25% 12.5GM 50ML 200 ML IV ONE
[2021-10-31 12:39] LABS: HEMOGLOBIN 10.4 g/dL (14.0-18.0)
[2021-10-31 12:58] LABS: INR 1.19; PARTIAL THROMBOPLASTIN TIME 36.5 seconds (23.8-35.5); PROTHROMBIN TIME 16.2 seconds (11.9-14.5)
== END ==
LOC: US 12:18
PROVIDERS: ATTEND Internal Medicine Gastroenterology
DX: R18.8 Other ascites (principal); R74.8 Abnormal levels of other serum enzymes; D69.6 Thrombocytopenia, unspecified; R16.0 Hepatomegaly, not elsewhere classified
CPT/HCPCS: 36415; 49083; 85014; 85049; 85610; 85730; C1729

== ENCOUNTER → 2021-11-08 | Outpatient (CLI) | payer BC ==
[~2021-11-08] MED LIST changes: -ALBUMIN 25% 12.5GM 50ML 100 ML IV ONE; -ALBUMIN 25% 12.5GM 50ML 200 ML IV ONE
== END ==
LOC: US 08:34
PROVIDERS: ATTEND Internal Medicine Gastroenterology
DX: R18.8 Other ascites (principal); D69.6 Thrombocytopenia, unspecified; R16.0 Hepatomegaly, not elsewhere classified; R74.8 Abnormal levels of other serum enzymes
CPT/HCPCS: 49083; C1729

== ENCOUNTER → 2021-11-08 | Outpatient (CLI) | payer BC ==
[~2021-11-08] MED LIST changes: +ALBUMIN 25% 12.5GM 50ML 150 ML IV ONE; +ALBUMIN 25% 12.5GM 50ML 50 ML IV ONE
== END ==
LOC: MRI 08:31
PROVIDERS: ATTEND Specialist
DX: R18.8 Other ascites (principal); D69.6 Thrombocytopenia, unspecified; R16.0 Hepatomegaly, not elsewhere classified; R74.8 Abnormal levels of other serum enzymes

== ENCOUNTER → 2021-11-16 | Outpatient (CLI) | payer BC ==
[~2021-11-16] MED LIST changes: +ALBUMIN 25% 12.5GM 50ML 100 ML IV ONE; -ALBUMIN 25% 12.5GM 50ML 150 ML IV ONE
== END ==
LOC: US 12:36
PROVIDERS: ATTEND Internal Medicine Gastroenterology
DX: R18.8 Other ascites (principal); R74.8 Abnormal levels of other serum enzymes; R16.0 Hepatomegaly, not elsewhere classified; D69.6 Thrombocytopenia, unspecified
CPT/HCPCS: 49083; C1729

== ENCOUNTER → 2021-11-24 | Outpatient (CLI) | payer BC ==
[~2021-11-24] MED LIST changes: -ALBUMIN 25% 12.5GM 50ML 100 ML IV ONE; +ALBUMIN 25% 12.5GM 50ML 150 ML IV ONE
== END ==
LOC: US 08:31
PROVIDERS: ATTEND Internal Medicine Gastroenterology
DX: R18.8 Other ascites (principal); R74.8 Abnormal levels of other serum enzymes; R16.0 Hepatomegaly, not elsewhere classified; D69.6 Thrombocytopenia, unspecified
CPT/HCPCS: 49083

== ENCOUNTER → 2021-12-05 | Outpatient (CLI) | payer BC ==
[~2021-12-05] MED LIST changes: -ALBUMIN 25% 12.5GM 50ML 50 ML IV ONE
[2021-12-05 12:46] LABS: BASOPHILS # (AUTO) 0.1 (0.0-0.1); BASOPHILS % 1.1 % (0.0-1.0); EOSINOPHILS # (AUTO) 0.2 (0.0-0.4); EOSINOPHILS % 3.3 % (0.0-6.0); HEMOGLOBIN 10.9 g/dL (14.0-18.0); LYMPHOCYTES # (AUTO) 1.1 (1.0-3.2); LYMPHOCYTES % 14.5 % (18.0-39.1); MEAN CORPUSCULAR HEMOGLOBIN 33.5 pg (28-32); MEAN CORPUSCULAR HGB CONC 34.1 g/dL (31-35); MEAN CORPUSCULAR VOLUME 98.5 fL (81-99); MONOCYTES # (AUTO) 0.6 (0.2-0.8); MONOCYTES % 8.3 % (4.4-11.3); NEUTROPHILS # (AUTO) 5.3 (2.1-6.9); NEUTROPHILS % 72.5 % (38.7-80.0); PLATELET COUNT 129 x10e3/uL (140-360); RED BLOOD COUNT 3.25 x10e6/uL (4.3-5.7); RED CELL DISTRIBUTION WIDTH 15.4 % (11.7-14.4)
[2021-12-05 13:00] LABS: INR 1.17; PROTHROMBIN TIME 15.9 seconds (11.9-14.5)
[2021-12-05 13:09] LABS: ALBUMIN/GLOBULIN RATIO 0.8 (0.8-2.0); ANION GAP 11.7 mmol/L (8-16); CALCIUM 8.1 mg/dL (8.4-10.2); CREATININE, SERUM 0.98 mg/dL (0.72-1.25); POTASSIUM 3.7 mmol/L (3.5-5.1)
== END ==
LOC: US 12:19
PROVIDERS: ATTEND Internal Medicine Gastroenterology
DX: R18.8 Other ascites (principal); D69.6 Thrombocytopenia, unspecified; R16.0 Hepatomegaly, not elsewhere classified
CPT/HCPCS: 36415; 49083; 80053; 85025; 85610

== ENCOUNTER → 2021-12-13 | Outpatient (CLI) | payer BC ==
[~2021-12-13] MED LIST changes: +ALBUMIN 25% 12.5GM 50ML 50 ML IV ONE
== END ==
LOC: US 09:41
PROVIDERS: ATTEND Internal Medicine Gastroenterology
DX: R18.8 Other ascites (principal); R74.8 Abnormal levels of other serum enzymes; R16.0 Hepatomegaly, not elsewhere classified; D69.6 Thrombocytopenia, unspecified
CPT/HCPCS: 49083; C1729

== ENCOUNTER → 2021-12-28 | Outpatient (CLI) | payer BC ==
[~2021-12-28] MED LIST changes: -ALBUMIN 25% 12.5GM 50ML 50 ML IV ONE
== END ==
LOC: US 13:15
PROVIDERS: ATTEND Internal Medicine Gastroenterology
DX: R16.0 Hepatomegaly, not elsewhere classified (principal); R18.8 Other ascites; D69.6 Thrombocytopenia, unspecified; R74.8 Abnormal levels of other serum enzymes
CPT/HCPCS: 49083

== ENCOUNTER → 2022-01-11 | Outpatient (CLI) | payer BC ==
[~2022-01-11] MED LIST changes: -ALBUMIN 25% 12.5GM 50ML 150 ML IV ONE; +ALBUMIN 25% 12.5GM 50ML 200 ML IV ONE
[2022-01-11 13:32] LABS: INR 1.2; PARTIAL THROMBOPLASTIN TIME 36.8 seconds (23.8-35.5); PROTHROMBIN TIME 16.3 seconds (11.9-14.5)
== END ==
LOC: US 12:50
PROVIDERS: ATTEND Internal Medicine Gastroenterology
DX: R18.8 Other ascites (principal); R16.0 Hepatomegaly, not elsewhere classified; D69.6 Thrombocytopenia, unspecified; R74.8 Abnormal levels of other serum enzymes
CPT/HCPCS: 36415; 49083; 85014; 85049; 85610; 85730

== ENCOUNTER → 2022-01-25 | Outpatient (CLI) | payer BC ==
[~2022-01-25] MED LIST changes: +ALBUMIN 25% 12.5GM 50ML 150 ML IV ONE; -ALBUMIN 25% 12.5GM 50ML 200 ML IV ONE
== END ==
LOC: US 14:04
PROVIDERS: ATTEND Internal Medicine Gastroenterology
DX: R18.8 Other ascites (principal); D69.6 Thrombocytopenia, unspecified; R74.8 Abnormal levels of other serum enzymes; R16.0 Hepatomegaly, not elsewhere classified
CPT/HCPCS: 49083; C1729

== ENCOUNTER → 2022-02-02 | Outpatient (CLI) | payer BC | LOC: US 10:58 | PROVIDERS: ATTEND Internal Medicine Gastroenterology | DX: R18.8 Other ascites (principal); R74.8 Abnormal levels of other serum enzymes; D69.6 Thrombocytopenia, unspecified; R16.0 Hepatomegaly, not elsewhere classified | CPT/HCPCS: 49083; C1729 ==

== ENCOUNTER → 2022-02-15 | Outpatient (CLI) | payer BC ==
[~2022-02-15] MED LIST changes: -ALBUMIN 25% 12.5GM 50ML 150 ML IV ONE; +ALBUMIN 25% 12.5GM 50ML 300 ML IV ONE; +LIDOCAINE HCL 1% LOCAL INJ 20 ML VIAL ONE
[2022-02-15 12:40] LABS: HEMOGLOBIN 10.9 g/dL (14.0-18.0)
[2022-02-15 12:53] LABS: INR 1.27
== END ==
LOC: US 11:15
PROVIDERS: ATTEND Internal Medicine Gastroenterology
DX: R18.8 Other ascites (principal); D69.6 Thrombocytopenia, unspecified; R74.8 Abnormal levels of other serum enzymes; R16.0 Hepatomegaly, not elsewhere classified
CPT/HCPCS: 36415; 49083; 85014; 85049; 85610; 85730; J2001

== ENCOUNTER → 2022-02-27 | Outpatient (CLI) | payer BC ==
[~2022-02-27] MED LIST changes: +ALBUMIN 25% 12.5GM 50ML 150 ML IV ONE; -ALBUMIN 25% 12.5GM 50ML 300 ML IV ONE; -LIDOCAINE HCL 1% LOCAL INJ 20 ML VIAL ONE
== END ==
LOC: US 13:48
PROVIDERS: ATTEND Internal Medicine Gastroenterology
DX: R18.8 Other ascites (principal); R74.8 Abnormal levels of other serum enzymes; D69.6 Thrombocytopenia, unspecified; R16.0 Hepatomegaly, not elsewhere classified
CPT/HCPCS: 49083; C1729

== ENCOUNTER → 2022-03-13 | Outpatient (CLI) | payer BC ==
[~2022-03-13] MED LIST changes: -ALBUMIN 25% 12.5GM 50ML 150 ML IV ONE; +ALBUMIN 25% 12.5GM 50ML 200 ML IV ONE
== END ==
LOC: US 13:55
PROVIDERS: ATTEND Internal Medicine Gastroenterology
DX: R18.8 Other ascites (principal); R74.8 Abnormal levels of other serum enzymes; D69.6 Thrombocytopenia, unspecified; R16.0 Hepatomegaly, not elsewhere classified
CPT/HCPCS: 49083

== ENCOUNTER → 2022-03-26 | Outpatient (CLI) | payer BC ==
[~2022-03-26] MED LIST changes: +ALBUMIN 25% 12.5GM 50ML 150 ML IV ONE; -ALBUMIN 25% 12.5GM 50ML 200 ML IV ONE; +ALBUMIN 25% 12.5GM 50ML 50 ML IV ONE
[2022-03-26 13:07] LABS: HEMOGLOBIN 10.5 g/dL (14.0-18.0)
[2022-03-26 13:23] LABS: INR 1.24; PROTHROMBIN TIME 16.7 seconds (11.9-14.5)
[2022-03-26 13:24] LABS: PARTIAL THROMBOPLASTIN TIME 39.3 seconds (23.8-35.5)
== END ==
LOC: US 12:37
PROVIDERS: ATTEND Internal Medicine Gastroenterology
DX: R18.8 Other ascites (principal); R74.8 Abnormal levels of other serum enzymes; R16.0 Hepatomegaly, not elsewhere classified; D69.6 Thrombocytopenia, unspecified
CPT/HCPCS: 36415; 49083; 85014; 85049; 85610; 85730; C1729

== ENCOUNTER → 2022-04-05 | Outpatient (CLI) | payer BC ==
[~2022-04-05] MED LIST changes: +ALBUMIN 25% 12.5GM 50ML 100 ML IV ONE; -ALBUMIN 25% 12.5GM 50ML 150 ML IV ONE; +ALBUMIN 25% 12.5GM 50ML 200 ML IV ONE; -ALBUMIN 25% 12.5GM 50ML 50 ML IV ONE
== END ==
LOC: US 12:49
PROVIDERS: ATTEND Internal Medicine Gastroenterology
DX: R18.8 Other ascites (principal); R16.0 Hepatomegaly, not elsewhere classified; R74.8 Abnormal levels of other serum enzymes; D69.6 Thrombocytopenia, unspecified
CPT/HCPCS: 49083

== ENCOUNTER → 2022-04-17 | Outpatient (CLI) | payer BC ==
[~2022-04-17] MED LIST changes: -ALBUMIN 25% 12.5GM 50ML 100 ML IV ONE
== END ==
LOC: US 12:34
PROVIDERS: ATTEND Internal Medicine Gastroenterology
DX: R18.8 Other ascites (principal); R74.8 Abnormal levels of other serum enzymes; D69.6 Thrombocytopenia, unspecified; R16.0 Hepatomegaly, not elsewhere classified
CPT/HCPCS: 49083; C1729

== ENCOUNTER → 2022-04-24 | Outpatient (CLI) | payer BC | LOC: US 13:52 | PROVIDERS: ATTEND Internal Medicine Gastroenterology | DX: R18.8 Other ascites (principal); R74.8 Abnormal levels of other serum enzymes; R16.0 Hepatomegaly, not elsewhere classified; D69.6 Thrombocytopenia, unspecified | CPT/HCPCS: 49083; C1729 ==

== ENCOUNTER → 2022-05-02 | Outpatient (CLI) | payer BC ==
[~2022-05-02] MED LIST changes: +ALBUMIN 25% 12.5GM 50ML 100 ML IV ONE; +ONDANSETRON ODT4 MG PO
[2022-05-02 10:02] LABS: BASOPHILS # (AUTO) 0.1 (0.0-0.1); BASOPHILS % 0.6 % (0.0-1.0); EOSINOPHILS # (AUTO) 0.3 (0.0-0.4); HEMATOCRIT 24.5 % (38.2-49.6); HEMOGLOBIN 8.5 g/dL (14.0-18.0); LYMPHOCYTES # (AUTO) 0.8 (1.0-3.2); LYMPHOCYTES % 7.1 % (18.0-39.1); MEAN CORPUSCULAR HEMOGLOBIN 30.4 pg (28-32); MEAN CORPUSCULAR HGB CONC 34.7 g/dL (31-35); MEAN CORPUSCULAR VOLUME 87.5 fL (81-99); MONOCYTES % 9.3 % (4.4-11.3); NEUTROPHILS # (AUTO) 8.2 (2.1-6.9); NEUTROPHILS % 78.1 % (38.7-80.0); PLATELET COUNT 249 x10e3/uL (140-360); RED CELL DISTRIBUTION WIDTH 14.6 % (11.7-14.4)
[2022-05-02 10:13] LABS: INR 1.09; PROTHROMBIN TIME 15.1 seconds (11.9-14.5)
[2022-05-02 10:14] LABS: PARTIAL THROMBOPLASTIN TIME 37.1 seconds (23.8-35.5)
[2022-05-02 12:37] LABS: BODY FLUID APPEARANCE SL.CLOUDY; BODY FLUID COLOR YELLOW
[2022-05-02 12:43] LABS: WBC,BODY FLUID 173 cells/uL
[2022-05-02 12:44] LABS: RBC,BODY FLUID 2000 cells/uL
[2022-05-02 12:51] LABS: LYMPHOCYTES,BODY FLUID 69 %; MONO/MACROPHG,BODY FLUID 20 %; NEUTROPHILS,BODY FLUID 9 %; OTHER CELLS,BODY FLUID 2 %
== END ==
LOC: US 09:43
PROVIDERS: ATTEND Internal Medicine Gastroenterology
DX: R74.8 Abnormal levels of other serum enzymes (principal); R18.8 Other ascites; R16.0 Hepatomegaly, not elsewhere classified; D69.6 Thrombocytopenia, unspecified
CPT/HCPCS: 36415; 49083; 82040; 84157; 85025; 85610; 85730; 87070; 87205; 88112; 88305; 89051; C1729; 88300

== ENCOUNTER 2022-05-04 18:02 | Emergency (ER) | payer BC ==
[~2022-05-04] VITALS: Ht 188 cm; Wt 93.4 kg
[~2022-05-04 18:02] MED LIST changes: -ALBUMIN 25% 12.5GM 50ML 100 ML IV ONE; -ALBUMIN 25% 12.5GM 50ML 200 ML IV ONE; -ONDANSETRON ODT4 MG PO
[2022-05-04] MEDS ORDERED: ONDANSETRON HCL INJ 2MG/ML 2ML 2 MG/ML VIAL IV STA (18:35)
[2022-05-04] MEDS ORDERED: SODIUM CHLORIDE 0.9% 500ML 500 ML IV ONE (18:45)
[2022-05-04 19:13] LABS: BASOPHILS # (AUTO) 0.1 (0.0-0.1); BASOPHILS % 0.6 % (0.0-1.0); EOSINOPHILS # (AUTO) 0.3 (0.0-0.4); EOSINOPHILS % 3.1 % (0.0-6.0); HEMATOCRIT 24.5 % (38.2-49.6); HEMOGLOBIN 8.2 g/dL (14.0-18.0); LYMPHOCYTES # (AUTO) 0.8 (1.0-3.2); LYMPHOCYTES % 7.4 % (18.0-39.1); MEAN CORPUSCULAR HEMOGLOBIN 30.6 pg (28-32); MEAN CORPUSCULAR HGB CONC 33.5 g/dL (31-35); MEAN CORPUSCULAR VOLUME 91.4 fL (81-99); MONOCYTES # (AUTO) 1.1 (0.2-0.8); MONOCYTES % 9.5 % (4.4-11.3); NEUTROPHILS # (AUTO) 8.8 (2.1-6.9); NEUTROPHILS % 78.8 % (38.7-80.0); PLATELET COUNT 246 x10e3/uL (140-360); RED BLOOD COUNT 2.68 x10e6/uL (4.3-5.7); RED CELL DISTRIBUTION WIDTH 15.1 % (11.7-14.4)
[2022-05-04 19:14] LABS: CLARITY,URINE SL CLOUDY (CLEAR); COLOR,URINE YELLOW (YELLOW); KETONES,URINE NEGATIVE (NEGATIVE); LEUKOCYTE ESTERASE ,URINE NEGATIVE (NEGATIVE); NITRITE,URINE NEGATIVE (NEGATIVE); PROTEIN,URINE DIPSTICK NEGATIVE (NEGATIVE); URINE UROBILINOGEN 0.2 mg/dL (0.2 - 1)
[2022-05-04 19:27] LABS: BACTERIA,URINE FEW /HPF; RBC,URINE 0-5 /HPF (0-5); WBC,URINE (MAN) 0-5 /HPF (0-5)
[2022-05-04 20:08] LABS: INR 1.14; PROTHROMBIN TIME 15.6 seconds (11.9-14.5)
[2022-05-04 20:09] LABS: PARTIAL THROMBOPLASTIN TIME 37.6 seconds (23.8-35.5)
[2022-05-04 20:16] LABS: ALBUMIN 3.2 g/dL (3.5-5.0); ALBUMIN/GLOBULIN RATIO 0.9 (0.8-2.0); CALCIUM 8.2 mg/dL (8.4-10.2); CREATININE, SERUM 1.19 mg/dL (0.72-1.25)
[2022-05-04] MEDS ORDERED: ONDANSETRON ODT4 MG PO (20:40)
== END 2022-05-04 20:50 | disposition home or self-care (01) ==
LOC: ER 18:21
DX: D64.9 Anemia, unspecified (principal); R11.2 Nausea with vomiting, unspecified; K80.20 Calculus of gallbladder without cholecystitis without obstruction; I10 Essential (primary) hypertension; K21.9 Gastro-esophageal reflux disease without esophagitis; E83.59 Other disorders of calcium metabolism; N29 Other disorders of kidney and ureter in diseases classified elsewhere; R94.31 Abnormal electrocardiogram [ECG] [EKG]; Z86.39 Personal history of other endocrine, nutritional and metabolic disease; F17.210 Nicotine dependence, cigarettes, uncomplicated
CPT/HCPCS: 36415; 71045; 74176; 80053; 81001; 84484; 85025; 85610; 85730; 93005; 99284; J2405; J7040

== ENCOUNTER → 2022-05-09 | Outpatient (CLI) | payer BC ==
[~2022-05-09] MED LIST changes: +ALBUMIN 25% 12.5GM 50ML 200 ML IV ONE; +ONDANSETRON ODT4 MG PO
[2022-05-09 11:43] LABS: BASOPHILS # (AUTO) 0.1 (0.0-0.1); BASOPHILS % 0.8 % (0.0-1.0); EOSINOPHILS # (AUTO) 0.2 (0.0-0.4); EOSINOPHILS % 2.4 % (0.0-6.0); HEMATOCRIT 22.7 % (38.2-49.6); HEMOGLOBIN 7.6 g/dL (14.0-18.0); LYMPHOCYTES # (AUTO) 0.6 (1.0-3.2); LYMPHOCYTES % 6.1 % (18.0-39.1); MEAN CORPUSCULAR HEMOGLOBIN 30.9 pg (28-32); MEAN CORPUSCULAR HGB CONC 33.5 g/dL (31-35); MEAN CORPUSCULAR VOLUME 92.3 fL (81-99); MONOCYTES # (AUTO) 0.9 (0.2-0.8); MONOCYTES % 9.5 % (4.4-11.3); NEUTROPHILS # (AUTO) 7.4 (2.1-6.9); NEUTROPHILS % 80.4 % (38.7-80.0); PLATELET COUNT 232 x10e3/uL (140-360); RED BLOOD COUNT 2.46 x10e6/uL (4.3-5.7); RED CELL DISTRIBUTION WIDTH 16.4 % (11.7-14.4)
[2022-05-09 12:09] LABS: INR 1.09; PARTIAL THROMBOPLASTIN TIME 36.2 seconds (23.8-35.5); PROTHROMBIN TIME 15.1 seconds (11.9-14.5)
[2022-05-09 12:17] LABS: ALBUMIN 2.9 g/dL (3.5-5.0); ALBUMIN/GLOBULIN RATIO 0.9 (0.8-2.0); ANION GAP 13.3 mmol/L (8-16); CALCIUM 8.6 mg/dL (8.4-10.2); CREATININE, SERUM 1.4 mg/dL (0.72-1.25); POTASSIUM 5.3 mmol/L (3.5-5.1)
== END ==
LOC: US 11:00
PROVIDERS: ATTEND Internal Medicine Gastroenterology
DX: R18.8 Other ascites (principal); R74.8 Abnormal levels of other serum enzymes; R16.0 Hepatomegaly, not elsewhere classified; D69.6 Thrombocytopenia, unspecified
CPT/HCPCS: 36415; 49083; 80053; 85025; 85610; 85730; C1729

== ENCOUNTER → 2022-05-17 | Outpatient (CLI) | payer BC ==
[2022-05-17 09:37] LABS: BASOPHILS % 0.1 % (0.0-1.0); EOSINOPHILS # (AUTO) 0.3 (0.0-0.4); EOSINOPHILS % 1.9 % (0.0-6.0); HEMATOCRIT 24.7 % (38.2-49.6); LYMPHOCYTES # (AUTO) 0.8 (1.0-3.2); LYMPHOCYTES % 5.4 % (18.0-39.1); MEAN CORPUSCULAR HEMOGLOBIN 30.9 pg (28-32); MEAN CORPUSCULAR HGB CONC 32.4 g/dL (31-35); MEAN CORPUSCULAR VOLUME 95.4 fL (81-99); MONOCYTES # (AUTO) 1.2 (0.2-0.8); MONOCYTES % 8.8 % (4.4-11.3); NEUTROPHILS # (AUTO) 11.6 (2.1-6.9); NEUTROPHILS % 82.9 % (38.7-80.0); PLATELET COUNT 238 x10e3/uL (140-360); RED BLOOD COUNT 2.59 x10e6/uL (4.3-5.7); RED CELL DISTRIBUTION WIDTH 16.7 % (11.7-14.4)
[2022-05-17 10:00] LABS: ANION GAP 12.7 mmol/L (8-16); CALCIUM 8.6 mg/dL (8.4-10.2); CREATININE, SERUM 0.9 mg/dL (0.72-1.25); POTASSIUM 4.7 mmol/L (3.5-5.1)
== END ==
LOC: US 09:06
PROVIDERS: ATTEND Internal Medicine Gastroenterology
DX: R18.8 Other ascites (principal); R16.0 Hepatomegaly, not elsewhere classified; D69.6 Thrombocytopenia, unspecified; R74.8 Abnormal levels of other serum enzymes
CPT/HCPCS: 36415; 49083; 80048; 85025; C1729

== ENCOUNTER → 2022-05-25 | Outpatient (CLI) | payer BC ==
[~2022-05-25] MED LIST changes: -ALBUMIN 25% 12.5GM 50ML 200 ML IV ONE; +IOPAMIDOL 370 MG/ML 100 ML INFUS..BTL INJ ONE
== END ==
LOC: CT 08:54
PROVIDERS: ATTEND Internal Medicine Hepatology
DX: Z11.59 Encounter for screening for other viral diseases (principal); K74.69 Other cirrhosis of liver; R76.8 Other specified abnormal immunological findings in serum
CPT/HCPCS: 74170; Q9967

== ENCOUNTER → 2022-05-25 | Outpatient (CLI) | payer BC ==
[~2022-05-25] MED LIST changes: +ALBUMIN 25% 12.5GM 50ML 200 ML IV ONE; -IOPAMIDOL 370 MG/ML 100 ML INFUS..BTL INJ ONE
== END ==
LOC: US 08:47
PROVIDERS: ATTEND Internal Medicine Gastroenterology
DX: R18.8 Other ascites (principal); R74.8 Abnormal levels of other serum enzymes; R16.0 Hepatomegaly, not elsewhere classified; D69.6 Thrombocytopenia, unspecified
CPT/HCPCS: 49083; C1729

== ENCOUNTER → 2022-06-05 | Outpatient (CLI) | payer BC ==
[~2022-06-05] MED LIST changes: +ALBUMIN 25% 12.5GM 50ML 150 ML IV ONE; -ALBUMIN 25% 12.5GM 50ML 200 ML IV ONE
[2022-06-05 10:35] LABS: HEMOGLOBIN 8.5 g/dL (14.0-18.0)
[2022-06-05 10:44] LABS: INR 1.06; PROTHROMBIN TIME 14.8 seconds (11.9-14.5)
[2022-06-05 10:45] LABS: PARTIAL THROMBOPLASTIN TIME 36.5 seconds (23.8-35.5)
== END ==
LOC: US 09:48
PROVIDERS: ATTEND Internal Medicine Gastroenterology
DX: R18.8 Other ascites (principal); R74.8 Abnormal levels of other serum enzymes; R16.0 Hepatomegaly, not elsewhere classified; D69.6 Thrombocytopenia, unspecified
CPT/HCPCS: 36415; 49083; 85014; 85049; 85610; 85730

== ENCOUNTER → 2022-07-27 | Outpatient (CLI) | payer BC ==
[~2022-07-27] MED LIST changes: +ALBUMIN 25% 12.5GM 50ML 50 ML IV ONE
== END ==
LOC: US 13:46
PROVIDERS: ATTEND Internal Medicine Gastroenterology
DX: K70.31 Alcoholic cirrhosis of liver with ascites (principal)
CPT/HCPCS: 49083; C1729

== ENCOUNTER → 2022-08-13 | Outpatient (CLI) | payer BC ==
[~2022-08-13] MED LIST changes: -ALBUMIN 25% 12.5GM 50ML 150 ML IV ONE; +ALBUMIN 25% 12.5GM 50ML 200 ML IV ONE; -ALBUMIN 25% 12.5GM 50ML 50 ML IV ONE
[2022-08-13 14:20] LABS: HEMOGLOBIN 8.1 g/dL (14.0-18.0); PLATELET COUNT 263 x10e3/uL (140-360)
[2022-08-13 14:40] LABS: BASOPHILS # (AUTO) 0.1 (0.0-0.1); BASOPHILS % 0.8 % (0.0-1.0); EOSINOPHILS # (AUTO) 0.4 (0.0-0.4); EOSINOPHILS % 3.4 % (0.0-6.0); LYMPHOCYTES # (AUTO) 1.1 (1.0-3.2); LYMPHOCYTES % 8.8 % (18.0-39.1); MEAN CORPUSCULAR HEMOGLOBIN 28.1 pg (28-32); MEAN CORPUSCULAR HGB CONC 31.5 g/dL (31-35); MONOCYTES # (AUTO) 1.3 (0.2-0.8); MONOCYTES % 10.7 % (4.4-11.3); NEUTROPHILS # (AUTO) 9.1 (2.1-6.9); NEUTROPHILS % 74.9 % (38.7-80.0); RED BLOOD COUNT 2.92 x10e6/uL (4.3-5.7); RED CELL DISTRIBUTION WIDTH 22.9 % (11.7-14.4)
[2022-08-13 14:44] LABS: INR 1.15; PROTHROMBIN TIME 14.9 seconds (11.9-14.5)
[2022-08-13 14:45] LABS: PARTIAL THROMBOPLASTIN TIME 37.4 seconds (23.8-35.5)
== END ==
LOC: US 14:01
PROVIDERS: ATTEND Internal Medicine Gastroenterology
DX: K70.31 Alcoholic cirrhosis of liver with ascites (principal)
CPT/HCPCS: 36415; 49083; 85025; 85610; 85730

== ENCOUNTER → 2022-08-23 | Outpatient (CLI) | payer BC | LOC: US 09:14 | PROVIDERS: ATTEND Internal Medicine Gastroenterology | DX: K70.31 Alcoholic cirrhosis of liver with ascites (principal) | CPT/HCPCS: 49083; C1729 ==

== ENCOUNTER → 2022-09-06 | Outpatient (CLI) | payer BC ==
[~2022-09-06] MED LIST changes: +ALBUMIN 25% 12.5GM 50ML 100 ML IV ONE; -ALBUMIN 25% 12.5GM 50ML 200 ML IV ONE
== END ==
LOC: US 12:44
PROVIDERS: ATTEND Internal Medicine Gastroenterology
DX: K70.31 Alcoholic cirrhosis of liver with ascites (principal)
CPT/HCPCS: 49083; C1729

== ENCOUNTER → 2022-09-18 | Outpatient (CLI) | payer BC ==
[~2022-09-18] MED LIST changes: -ALBUMIN 25% 12.5GM 50ML 100 ML IV ONE; +ALBUMIN 25% 12.5GM 50ML 150 ML IV ONE; +ALBUMIN 25% 12.5GM 50ML 50 ML IV ONE
[2022-09-18 10:40] LABS: BASOPHILS # (AUTO) 0.1 (0.0-0.1); BASOPHILS % 0.9 % (0.0-1.0); EOSINOPHILS # (AUTO) 0.2 (0.0-0.4); EOSINOPHILS % 2.2 % (0.0-6.0); HEMATOCRIT 27.1 % (38.2-49.6); HEMOGLOBIN 9.1 g/dL (14.0-18.0); LYMPHOCYTES # (AUTO) 0.6 (1.0-3.2); LYMPHOCYTES % 5.5 % (18.0-39.1); MEAN CORPUSCULAR HEMOGLOBIN 30.7 pg (28-32); MEAN CORPUSCULAR HGB CONC 33.6 g/dL (31-35); MEAN CORPUSCULAR VOLUME 91.6 fL (81-99); MONOCYTES # (AUTO) 1.2 (0.2-0.8); MONOCYTES % 10.7 % (4.4-11.3); NEUTROPHILS # (AUTO) 8.8 (2.1-6.9); PLATELET COUNT 226 x10e3/uL (140-360); RED BLOOD COUNT 2.96 x10e6/uL (4.3-5.7); RED CELL DISTRIBUTION WIDTH 18.4 % (11.7-14.4)
[2022-09-18 10:48] LABS: INR 1.18; PROTHROMBIN TIME 15.2 seconds (11.9-14.5)
[2022-09-18 10:49] LABS: PARTIAL THROMBOPLASTIN TIME 39.4 seconds (23.8-35.5)
[2022-09-18 10:55] LABS: ANION GAP 11.8 mmol/L (8-16); CALCIUM 8.8 mg/dL (8.4-10.2); CREATININE, SERUM 0.9 mg/dL (0.72-1.25); POTASSIUM 4.8 mmol/L (3.5-5.1)
== END ==
LOC: US 10:16
PROVIDERS: ATTEND Internal Medicine Gastroenterology
DX: K70.31 Alcoholic cirrhosis of liver with ascites (principal)
CPT/HCPCS: 36415; 49083; 80048; 85025; 85610; 85730

== ENCOUNTER → 2022-09-25 | Outpatient (CLI) | payer BC ==
[~2022-09-25] MED LIST changes: -ALBUMIN 25% 12.5GM 50ML 150 ML IV ONE; +ALBUMIN 25% 12.5GM 50ML 200 ML IV ONE; -ALBUMIN 25% 12.5GM 50ML 50 ML IV ONE
== END ==
LOC: US 11:37
PROVIDERS: ATTEND Internal Medicine Gastroenterology
DX: K70.31 Alcoholic cirrhosis of liver with ascites (principal)
CPT/HCPCS: 49083; C1729

== ENCOUNTER → 2022-10-11 | Outpatient (CLI) | payer BC ==
[~2022-10-11] MED LIST changes: +ALBUMIN 25% 12.5GM 50ML 150 ML IV ONE; -ALBUMIN 25% 12.5GM 50ML 200 ML IV ONE
== END ==
LOC: US 12:21
PROVIDERS: ATTEND Internal Medicine Gastroenterology
DX: K70.31 Alcoholic cirrhosis of liver with ascites (principal)
CPT/HCPCS: 49083; C1729

== ENCOUNTER → 2022-10-25 | Outpatient (CLI) | payer BC ==
[~2022-10-25] MED LIST changes: +ALBUMIN 25% 12.5GM 50ML 100 ML IV ONE; -ALBUMIN 25% 12.5GM 50ML 150 ML IV ONE
[2022-10-25 14:21] LABS: INR 1.2; PROTHROMBIN TIME 15.7 seconds (11.9-14.5)
[2022-10-25 14:22] LABS: PARTIAL THROMBOPLASTIN TIME 39.1 seconds (23.8-35.5)
== END ==
LOC: US 13:45
PROVIDERS: ATTEND Internal Medicine Gastroenterology
DX: K70.31 Alcoholic cirrhosis of liver with ascites (principal)
CPT/HCPCS: 36415; 49083; 85014; 85049; 85610; 85730; C1729

== ENCOUNTER → 2022-11-05 | Outpatient (CLI) | payer BC ==
[~2022-11-05] MED LIST changes: -ALBUMIN 25% 12.5GM 50ML 100 ML IV ONE; +ALBUMIN 25% 12.5GM 50ML 150 ML IV ONE
== END ==
LOC: US 13:00
PROVIDERS: ATTEND Internal Medicine Gastroenterology
DX: K70.31 Alcoholic cirrhosis of liver with ascites (principal)
CPT/HCPCS: 49083; C1729

== ENCOUNTER → 2022-11-22 | Outpatient (CLI) | payer BC | LOC: US 11:41 | PROVIDERS: ATTEND Internal Medicine Gastroenterology | DX: K70.31 Alcoholic cirrhosis of liver with ascites (principal) | CPT/HCPCS: 49083 ==

== ENCOUNTER → 2022-12-06 | Outpatient (CLI) | payer BC ==
[~2022-12-06] MED LIST changes: -ALBUMIN 25% 12.5GM 50ML 150 ML IV ONE
[2022-12-06 12:29] LABS: BASOPHILS # (AUTO) 0.1 (0.0-0.1); BASOPHILS % 1.2 % (0.0-1.0); EOSINOPHILS # (AUTO) 0.3 (0.0-0.4); EOSINOPHILS % 3.2 % (0.0-6.0); HEMATOCRIT 29.7 % (38.2-49.6); HEMOGLOBIN 10.1 g/dL (14.0-18.0); LYMPHOCYTES # (AUTO) 0.7 (1.0-3.2); LYMPHOCYTES % 8.6 % (18.0-39.1); MEAN CORPUSCULAR HEMOGLOBIN 29.6 pg (28-32); MEAN CORPUSCULAR VOLUME 87.1 fL (81-99); MONOCYTES # (AUTO) 0.9 (0.2-0.8); MONOCYTES % 10.9 % (4.4-11.3); NEUTROPHILS # (AUTO) 5.9 (2.1-6.9); NEUTROPHILS % 75.6 % (38.7-80.0); PLATELET COUNT 198 x10e3/uL (140-360); RED BLOOD COUNT 3.41 x10e6/uL (4.3-5.7); RED CELL DISTRIBUTION WIDTH 15.8 % (11.7-14.4)
[2022-12-06 12:42] LABS: INR 1.16; PROTHROMBIN TIME 15.3 seconds (11.9-14.5)
[2022-12-06 12:43] LABS: PARTIAL THROMBOPLASTIN TIME 39.2 seconds (23.8-35.5)
== END ==
LOC: US 12:02
PROVIDERS: ATTEND Internal Medicine Gastroenterology
DX: K70.31 Alcoholic cirrhosis of liver with ascites (principal)
CPT/HCPCS: 36415; 49083; 85025; 85610; 85730

== ENCOUNTER → 2022-12-19 | Outpatient (CLI) | payer BC ==
[~2022-12-19] MED LIST changes: +ALBUMIN 25% 12.5GM 50ML 300 ML IV ONE
[2022-12-19 08:09] LABS: BASOPHILS # (AUTO) 0.1 (0.0-0.1); BASOPHILS % 0.9 % (0.0-1.0); EOSINOPHILS # (AUTO) 0.3 (0.0-0.4); HEMATOCRIT 28.6 % (38.2-49.6); HEMOGLOBIN 9.8 g/dL (14.0-18.0); LYMPHOCYTES # (AUTO) 0.6 (1.0-3.2); LYMPHOCYTES % 7.3 % (18.0-39.1); MEAN CORPUSCULAR HEMOGLOBIN 29.2 pg (28-32); MEAN CORPUSCULAR HGB CONC 34.3 g/dL (31-35); MEAN CORPUSCULAR VOLUME 85.1 fL (81-99); MONOCYTES % 11.6 % (4.4-11.3); NEUTROPHILS # (AUTO) 6.4 (2.1-6.9); NEUTROPHILS % 75.5 % (38.7-80.0); PLATELET COUNT 221 x10e3/uL (140-360); RED BLOOD COUNT 3.36 x10e6/uL (4.3-5.7); RED CELL DISTRIBUTION WIDTH 16.3 % (11.7-14.4)
[2022-12-19 08:21] LABS: INR 1.02; PROTHROMBIN TIME 13.9 seconds (11.9-14.5)
[2022-12-19 08:22] LABS: PARTIAL THROMBOPLASTIN TIME 39.3 seconds (23.8-35.5)
== END ==
LOC: US 07:44
PROVIDERS: ATTEND Internal Medicine Gastroenterology
DX: K70.31 Alcoholic cirrhosis of liver with ascites (principal)
CPT/HCPCS: 36415; 49083; 85025; 85610; 85730

== ENCOUNTER → 2022-12-31 | Outpatient (CLI) | payer BC ==
[~2022-12-31] MED LIST changes: +ALBUMIN 25% 12.5GM 50ML 200 ML IV ONE; -ALBUMIN 25% 12.5GM 50ML 300 ML IV ONE
== END ==
LOC: US 11:57
PROVIDERS: ATTEND Internal Medicine Gastroenterology
DX: K70.31 Alcoholic cirrhosis of liver with ascites (principal)
CPT/HCPCS: 49083; C1729

== ENCOUNTER 2023-01-06 22:43 | Inpatient (IN) | payer BC ==
[~2023-01-06] VITALS: Ht 188 cm; Wt 70.3 kg
[~2023-01-06 22:43] MED LIST changes: -ALBUMIN 25% 12.5GM 50ML 200 ML IV ONE
[2023-01-06] MEDS: SODIUM CHLORIDE 0.9% 1000ML 1,000 ML IV SCH (23:02)
[2023-01-06] MEDS ORDERED: IOPAMIDOL 370 MG/ML 100 ML INFUS..BTL INJ ONE (23:12)
[2023-01-06 23:15] LABS: BASOPHILS % 0.2 % (0.0-1.0); HEMATOCRIT 23.8 % (38.2-49.6); HEMOGLOBIN 8.2 g/dL (14.0-18.0); LYMPHOCYTES # (AUTO) 0.3 (1.0-3.2); LYMPHOCYTES % 2.3 % (18.0-39.1); MEAN CORPUSCULAR HEMOGLOBIN 28.1 pg (28-32); MEAN CORPUSCULAR HGB CONC 34.5 g/dL (31-35); MEAN CORPUSCULAR VOLUME 81.5 fL (81-99); MONOCYTES # (AUTO) 0.9 (0.2-0.8); MONOCYTES % 7.9 % (4.4-11.3); NEUTROPHILS # (AUTO) 9.7 (2.1-6.9); NEUTROPHILS % 89.2 % (38.7-80.0); PLATELET COUNT 139 x10e3/uL (140-360); RED BLOOD COUNT 2.92 x10e6/uL (4.3-5.7); RED CELL DISTRIBUTION WIDTH 15.5 % (11.7-14.4)
[2023-01-06 23:19] LABS: INR 1.09; PROTHROMBIN TIME 14.7 seconds (11.9-14.5)
[2023-01-06 23:20] LABS: PARTIAL THROMBOPLASTIN TIME 39.3 seconds (23.8-35.5)
[2023-01-06 23:29] LABS: ALBUMIN 2.6 g/dL (3.5-5.0); ALBUMIN/GLOBULIN RATIO 0.7 (0.8-2.0); ALKALINE PHOSPHATASE 98 IU/L (40-150); ANION GAP 14.5 mmol/L (8-16); BLOOD UREA NITROGEN 11 mg/dL (7-26); BUN/CREATININE RATIO 14 (6-25); CALCIUM 7.7 mg/dL (8.4-10.2); CARBON DIOXIDE 19 mmol/L (22-29); CHLORIDE 91 mmol/L (98-107); CREATININE, SERUM 0.76 mg/dL (0.72-1.25); GLUCOSE 117 mg/dL (74-118); POTASSIUM 4.5 mmol/L (3.5-5.1); SODIUM 120 mmol/L (136-145)
[2023-01-06 23:31] LABS: ALANINE AMINOTRANSFERASE < 6 IU/L (0-55)
[2023-01-07] VITALS (9 sets, daily range): BP systolic 115–144; BP diastolic 66–92; PULSE 104–113; RESP 18–21; TEMP 97.8–98.9; O2SAT 99–100
[2023-01-07] MEDS: Morphine 2mg Syringe 2 MG/ML SYR IV PRN ×5 (02:19→21:12)
[2023-01-07] MEDS: ONDANSETRON HCL INJ 2MG/ML 2ML 2 MG/ML VIAL IV PRN ×3 (02:19→15:44)
[2023-01-07] MEDS ORDERED: SPIRONOLACTONE PO (03:39)
[2023-01-07] MEDS ORDERED: LASIX20 MG PO (03:39)
[2023-01-07] MEDS: NICOTINE 21 MG/EA PATCH TOP SCH ×2 (04:01→08:51)
[2023-01-07] MEDS: SODIUM CHLORIDE 0.9% 1000ML 1,000 ML IV SCH ×2 (08:51→15:44)
[2023-01-07] MEDS ORDERED: KETOROLAC TROMETHAMINE 30 MG/ML VIAL IV ONE (09:15)
[2023-01-07] MEDS ORDERED: CALCIUM CARBON500 MG PO (13:55)
[2023-01-07] MEDS: KETOROLAC TROMETHAMINE 30 MG/ML VIAL IV PRN (17:59)
[2023-01-08] VITALS (8 sets, daily range): BP systolic 102–125; BP diastolic 63–82; PULSE 93–110; RESP 18–21; TEMP 97.8–98.7; O2SAT 96–100
[2023-01-08] MEDS: Morphine 2mg Syringe 2 MG/ML SYR IV PRN ×3 (00:22→20:44)
[2023-01-08] MEDS: SODIUM CHLORIDE 0.9% 1000ML 1,000 ML IV SCH ×3 (00:27→16:03)
[2023-01-08] MEDS: ZOLPIDEM TARTRATE 10 MG TAB PO PRN ×2 (01:27→22:50)
[2023-01-08 05:01] LABS: BASOPHILS # (AUTO) 0.1 (0.0-0.1); BASOPHILS % 0.6 % (0.0-1.0); EOSINOPHILS # (AUTO) 0.2 (0.0-0.4); EOSINOPHILS % 2.8 % (0.0-6.0); HEMATOCRIT 23.5 % (38.2-49.6); HEMOGLOBIN 7.8 g/dL (14.0-18.0); LYMPHOCYTES # (AUTO) 0.5 (1.0-3.2); LYMPHOCYTES % 5.6 % (18.0-39.1); MEAN CORPUSCULAR HEMOGLOBIN 28.2 pg (28-32); MEAN CORPUSCULAR HGB CONC 33.2 g/dL (31-35); MEAN CORPUSCULAR VOLUME 84.8 fL (81-99); MONOCYTES # (AUTO) 0.7 (0.2-0.8); MONOCYTES % 8.9 % (4.4-11.3); NEUTROPHILS # (AUTO) 6.7 (2.1-6.9); NEUTROPHILS % 81.7 % (38.7-80.0); PLATELET COUNT 121 x10e3/uL (140-360); RED BLOOD COUNT 2.77 x10e6/uL (4.3-5.7)
[2023-01-08 05:24] LABS: ALBUMIN 2.3 g/dL (3.5-5.0); ALBUMIN/GLOBULIN RATIO 0.7 (0.8-2.0); ANION GAP 11.9 mmol/L (8-16); CALCIUM 7.6 mg/dL (8.4-10.2); CREATININE, SERUM 0.82 mg/dL (0.72-1.25); POTASSIUM 3.9 mmol/L (3.5-5.1)
[2023-01-08] MEDS: NICOTINE 21 MG/EA PATCH TOP SCH (08:33)
[2023-01-08] MEDS: KETOROLAC TROMETHAMINE 30 MG/ML VIAL IV PRN (08:34)
[2023-01-08] MEDS ORDERED: BUPIVACAINE HCL 0.5% INJ 30 ML VIAL INJ ONE (09:08)
[2023-01-08] MEDS ORDERED: OYST-CAL-D 500MG TABLET PO PRN (11:15)
[2023-01-08] MEDS ORDERED: CALCIUM CARBONATE 500 MG CHEWABLE TABS PO PRN (11:30)
[2023-01-08] MEDS ORDERED: ONDANSETRON HCL 4 MG ORAL DISINTEGRATING TAB PO PRN (12:00)
[2023-01-08] MEDS ORDERED: SODIUM CHLORIDE 1 GM TAB PO ONE ×2 (16:15→21:00)
[2023-01-09] VITALS (8 sets, daily range): BP systolic 109–129; BP diastolic 75–87; PULSE 85–113; RESP 16–21; TEMP 97.5–98.5; O2SAT 97–100
[2023-01-09] MEDS: SODIUM CHLORIDE 0.9% 1000ML 1,000 ML IV SCH ×4 (00:34→23:28)
[2023-01-09] MEDS: Morphine 2mg Syringe 2 MG/ML SYR IV PRN ×2 (01:27→21:15)
[2023-01-09] MEDS: ONDANSETRON HCL INJ 2MG/ML 2ML 2 MG/ML VIAL IV PRN ×3 (01:42→21:14)
[2023-01-09 05:53] LABS: BASOPHILS # (AUTO) 0.1 (0.0-0.1); BASOPHILS % 0.7 % (0.0-1.0); EOSINOPHILS # (AUTO) 0.2 (0.0-0.4); EOSINOPHILS % 2.9 % (0.0-6.0); HEMATOCRIT 23.9 % (38.2-49.6); HEMOGLOBIN 7.7 g/dL (14.0-18.0); LYMPHOCYTES # (AUTO) 0.5 (1.0-3.2); LYMPHOCYTES % 6.7 % (18.0-39.1); MEAN CORPUSCULAR HGB CONC 32.2 g/dL (31-35); MEAN CORPUSCULAR VOLUME 86.9 fL (81-99); MONOCYTES # (AUTO) 0.7 (0.2-0.8); MONOCYTES % 9.3 % (4.4-11.3); NEUTROPHILS % 79.7 % (38.7-80.0); PLATELET COUNT 137 x10e3/uL (140-360); RED BLOOD COUNT 2.75 x10e6/uL (4.3-5.7); RED CELL DISTRIBUTION WIDTH 16.5 % (11.7-14.4)
[2023-01-09] MEDS: LEVOTHYROXINE SODIUM 25 MCG TABLET PO SCH (05:59)
[2023-01-09] MEDS: KETOROLAC TROMETHAMINE 30 MG/ML VIAL IV PRN ×2 (06:03→18:39)
[2023-01-09 06:20] LABS: ALBUMIN 2.1 g/dL (3.5-5.0); ALBUMIN/GLOBULIN RATIO 0.7 (0.8-2.0); CALCIUM 7.8 mg/dL (8.4-10.2); CREATININE, SERUM 0.79 mg/dL (0.72-1.25)
[2023-01-09] MEDS: PANTOPRAZOLE SOD 40 MG TABEC PO SCH (09:00)
[2023-01-09] MEDS: NICOTINE 21 MG/EA PATCH TOP SCH (09:19)
[2023-01-09] MEDS ORDERED: BUPIVACAINE HCL 0.5% INJ 30 ML VIAL INJ ONE (12:26)
[2023-01-09] MEDS ORDERED: FENTANYL CITRATE/PF 100MCG/2 ML INJ ONE (12:58)
[2023-01-09] MEDS ORDERED: NEOSTIGMINE 1 MG/ML 10ML VIAL ONE (13:17)
[2023-01-09] MEDS ORDERED: GLYCOPYRROLATE INJ 0.2 MG/ML VIAL ONE (13:17)
[2023-01-09] MEDS ORDERED: ROCURONIUM BROMIDE 10 MG/ML 5ML VIAL IV ONE (13:17)
[2023-01-09] MEDS ORDERED: POVIDONE IODINE 0.05% 0.05 % ML PO ONE (13:17)
[2023-01-09] MEDS ORDERED: ONDANSETRON HCL INJ 2MG/ML 2ML 2 MG/ML VIAL ONE (13:17)
[2023-01-09] MEDS ORDERED: LIDOCAINE HCL 2% LOCAL INJ 5 ML SDV VIAL INJ ONE (13:17)
[2023-01-09] MEDS ORDERED: SEVOFLURANE INHAL SOLN 250 ML PEN BTL ONE (13:17)
[2023-01-09] MEDS ORDERED: DEXAMETHASONE SOD PHOS INJ 4 MG/ML SDV ONE (13:17)
[2023-01-09] MEDS ORDERED: PROPOFOL IV EMULSION 10 MG/ML 20 ML VIAL ONE (13:17)
[2023-01-09] MEDS: FENTANYL CITRATE/PF 100MCG/2 ML INJ ONE ×2 (14:33→14:39)
[2023-01-09] MEDS: GUAIFENESIN/DEXTROMETHORPHAN LIQD 5 ML UDC NG PRN ×2 (16:01→22:14)
[2023-01-09] MEDS: ZOLPIDEM TARTRATE 10 MG TAB PO PRN (23:28)
[2023-01-10] VITALS: BP 123/84; PULSE 67; RESP 18; TEMP 98.1; O2SAT 100
[2023-01-10] MEDS: ONDANSETRON HCL INJ 2MG/ML 2ML 2 MG/ML VIAL IV PRN ×4 (01:21→14:05)
[2023-01-10] MEDS: Morphine 2mg Syringe 2 MG/ML SYR IV PRN ×4 (01:22→14:05)
[2023-01-10 06:00] VITALS: BP 95/64; PULSE 105; RESP 18; TEMP 97.6; O2SAT 100
[2023-01-10] MEDS: LEVOTHYROXINE SODIUM 25 MCG TABLET PO SCH (06:08)
[2023-01-10 06:17] LABS: BASOPHILS % 0.1 % (0.0-1.0); EOSINOPHILS % 0.2 % (0.0-6.0); HEMATOCRIT 22.2 % (38.2-49.6); HEMOGLOBIN 7.2 g/dL (14.0-18.0); LYMPHOCYTES # (AUTO) 0.3 (1.0-3.2); LYMPHOCYTES % 3.3 % (18.0-39.1); MEAN CORPUSCULAR HEMOGLOBIN 28.5 pg (28-32); MEAN CORPUSCULAR HGB CONC 32.4 g/dL (31-35); MEAN CORPUSCULAR VOLUME 87.7 fL (81-99); MONOCYTES # (AUTO) 0.6 (0.2-0.8); MONOCYTES % 6.3 % (4.4-11.3); NEUTROPHILS # (AUTO) 7.7 (2.1-6.9); NEUTROPHILS % 89.2 % (38.7-80.0); PLATELET COUNT 141 x10e3/uL (140-360); RED BLOOD COUNT 2.53 x10e6/uL (4.3-5.7); RED CELL DISTRIBUTION WIDTH 16.8 % (11.7-14.4)
[2023-01-10 06:45] LABS: ANION GAP 8.9 mmol/L (8-16); CALCIUM 7.6 mg/dL (8.4-10.2); CREATININE, SERUM 0.85 mg/dL (0.72-1.25); POTASSIUM 3.9 mmol/L (3.5-5.1)
[2023-01-10] MEDS: SODIUM CHLORIDE 0.9% 1000ML 1,000 ML IV SCH ×2 (08:31→14:06)
[2023-01-10 08:37] VITALS: BP 128/85; PULSE 108; RESP 18; TEMP 98; O2SAT 100
[2023-01-10 08:50] VITALS: BP 128/85; PULSE 108; RESP 18; TEMP 98; O2SAT 100
[2023-01-10] MEDS: PANTOPRAZOLE SOD 40 MG TABEC PO SCH (09:20)
[2023-01-10] MEDS: NICOTINE 21 MG/EA PATCH TOP SCH (09:20)
[2023-01-10 12:57] VITALS: BP 132/80; PULSE 101; RESP 18; TEMP 98.1; O2SAT 100
[2023-01-10 16:22] VITALS: BP 114/75; PULSE 106; RESP 18; TEMP 97.6; O2SAT 100
[2023-01-10] MEDS: GUAIFENESIN/DEXTROMETHORPHAN LIQD 5 ML UDC NG PRN (17:49)
[2023-01-10 17:50] LABS: HEMATOCRIT 23.9 % (38.2-49.6); HEMOGLOBIN 7.9 g/dL (14.0-18.0)
== END 2023-01-10 20:22 | disposition home or self-care (01) | DRG 354 ==
LOC: ER 22:46 → ERHOLD 01-07 01:35 → MED/SURG3 01-07 03:26 → OBSVTOIN 01-08 09:15
PROVIDERS: ADMIT Internal Medicine; ATTEND Internal Medicine
PROC: 0WQF0ZZ Repair Abdominal Wall, Open Approach (ICD-10-PCS; principal; 2023-01-09 13:13)
DX: K42.0 Umbilical hernia with obstruction, without gangrene (principal); E87.1 Hypo-osmolality and hyponatremia; K76.6 Portal hypertension; K70.31 Alcoholic cirrhosis of liver with ascites; K80.20 Calculus of gallbladder without cholecystitis without obstruction; I10 Essential (primary) hypertension; K21.9 Gastro-esophageal reflux disease without esophagitis; F17.200 Nicotine dependence, unspecified, uncomplicated; F10.11 Alcohol abuse, in remission; D63.8 Anemia in other chronic diseases classified elsewhere; Z20.822 Contact with and (suspected) exposure to COVID-19
CPT/HCPCS: 36415; 71045; 74177; 80048; 80053; 85014; 85018; 85025; 85610; 85730; 87040; 99284; G0378; J1100; J1885; J2001; J2270; J2405; J2543; J2710; J7030; Q9967

== ENCOUNTER → 2023-01-17 | Outpatient (CLI) | payer BC ==
[~2023-01-17] MED LIST changes: +ALBUMIN 25% 12.5GM 50ML 150 ML IV ONE; +CALCIUM CARBON500 MG PO; +LASIX20 MG PO; +SPIRONOLACTONE PO
== END ==
LOC: US 11:18
PROVIDERS: ATTEND Internal Medicine Gastroenterology
DX: K70.31 Alcoholic cirrhosis of liver with ascites (principal)
CPT/HCPCS: 49083

== ENCOUNTER → 2023-05-02 | Outpatient (REF) | payer BC ==
[~2023-05-02] MED LIST changes: +ACETAMINOPHEN325 M1 PO; +AMBIEN10 MG PO; +AMITRIPTYLINE H10 MG PO; +B COMPLEX1 EACH PO; +CEFTRIAXON1 GM/50 M2 IV; +CEPHALEXIN500 MG PO; +Collagenase TP; +Docusate Sodium PO; +HYDROCODON-ACE1 EA11 PO; +LACTULOSE20 GM/30 M PO; +LASIX10 MG/ML PO; +LYRICA50 MG PO; +MIRALAX17 GM PO; +MULTIVITAMINS1 EAC8 PO; +NEURONTIN300 MG PO; +NICODERM CQ1 EAC2 TOP; +PROMETHAZINE HC25 M1 PO; +SODIUM CHLORI1000 M2 PO; +ULTRAM 50MG50 MG PO; +VITAMIN B COMPLEX PO; +VITAMIN B-121000 MC4 PO; +VITAMIN E400 UNI1 PO; +XIFAXAN550 MG PO
== END ==
LOC: US 11:31
PROVIDERS: ATTEND Internal Medicine Gastroenterology
DX: R18.8 Other ascites (principal)
CPT/HCPCS: 49083

== ENCOUNTER → 2023-05-09 | Outpatient (REF) | payer BC ==
[~2023-05-09] MED LIST changes: -ALBUMIN 25% 12.5GM 50ML 150 ML IV ONE; +ALBUMIN 25% 12.5GM 50ML 200 ML IV ONE
== END ==
LOC: US 11:17
PROVIDERS: ATTEND Internal Medicine Gastroenterology
DX: R18.8 Other ascites (principal)
CPT/HCPCS: 49083

== ENCOUNTER 2023-05-10 14:49 | Emergency (ER) | payer BC ==
[~2023-05-10] VITALS: Ht 370.8 cm; Wt 77.1 kg
[~2023-05-10 14:49] MED LIST changes: -ALBUMIN 25% 12.5GM 50ML 200 ML IV ONE
[2023-05-10 14:52] VITALS: O2SAT 100
[2023-05-10] MEDS ORDERED: KETOROLAC TROMETHAMINE 30 MG/ML VIAL IM STA (16:12)
[2023-05-10] MEDS ORDERED: HYDROCODONE/APAP 7.5MG-325MG 1 EA TAB PO STA (16:23)
== END 2023-05-10 17:38 | disposition left against medical advice (07) ==
LOC: ER 15:01
DX: L03.116 Cellulitis of left lower limb (principal)

== ENCOUNTER 2023-05-14 13:00 | Inpatient (IN) | payer BC ==
[~2023-05-14] VITALS: Ht 182.9 cm; Wt 72.6 kg
[2023-05-14] MEDS ORDERED: PIPERACILLIN/TAZOBACTAM 4.5 GM in SODIUM CHLORIDE 0.9% 100 ML IV ONE (13:45)
[2023-05-14] MEDS ORDERED: Morphine 4mg INJECTION 4 MG/ML INJ IV PRN (13:45)
[2023-05-14 14:03] LABS: ALBUMIN 2.9 g/dL (3.5-5.0); ALBUMIN/GLOBULIN RATIO 0.6 (0.8-2.0); ANION GAP 14.4 mmol/L (8-16); CALCIUM 8.9 mg/dL (8.4-10.2); CREATININE, SERUM 1.94 mg/dL (0.72-1.25); POTASSIUM 4.4 mmol/L (3.5-5.1)
[2023-05-14 14:15] LABS: BASOPHILS # (AUTO) 0.1 (0.0-0.1); BASOPHILS % 0.6 % (0.0-1.0); EOSINOPHILS # (AUTO) 0.3 (0.0-0.4); EOSINOPHILS % 1.8 % (0.0-6.0); HEMATOCRIT 29.4 % (38.2-49.6); HEMOGLOBIN 10.3 g/dL (14.0-18.0); LYMPHOCYTES # (AUTO) 0.6 (1.0-3.2); LYMPHOCYTES % 3.9 % (18.0-39.1); MEAN CORPUSCULAR HEMOGLOBIN 28.1 pg (28-32); MEAN CORPUSCULAR VOLUME 80.3 fL (81-99); MONOCYTES # (AUTO) 1.3 (0.2-0.8); MONOCYTES % 8.6 % (4.4-11.3); NEUTROPHILS # (AUTO) 12.3 (2.1-6.9); NEUTROPHILS % 83.6 % (38.7-80.0); PLATELET COUNT 329 x10e3/uL (140-360); RED BLOOD COUNT 3.66 x10e6/uL (4.3-5.7); RED CELL DISTRIBUTION WIDTH 16.8 % (11.7-14.4); WHITE BLOOD COUNT 14.73 x10e3/uL (4.8-10.8)
[2023-05-14] MEDS: ONDANSETRON HCL INJ 2MG/ML 2ML 2 MG/ML VIAL IV PRN (15:02)
[2023-05-14 15:35] VITALS: PULSE 84; RESP 18; O2SAT 98
[2023-05-14 16:23] VITALS: BP 126/94; PULSE 115; RESP 16; TEMP 97.6; O2SAT 94
[2023-05-14 16:33] VITALS: BP 126/94; PULSE 115; RESP 16; TEMP 97.6; O2SAT 94
[2023-05-14 17:19] VITALS: BP 126/94; PULSE 115; RESP 16; TEMP 97.6; O2SAT 94
[2023-05-14] MEDS: NICOTINE 21 MG/EA PATCH TOP SCH (17:23)
[2023-05-14 19:20] VITALS: PULSE 76; RESP 18; O2SAT 97
[2023-05-14 20:00] VITALS: BP 111/79; PULSE 117; RESP 18; TEMP 97.9; O2SAT 97
[2023-05-14] MEDS: RIFAXIMIN 550 MG TABLET PO SCH (21:01)
[2023-05-14] MEDS: AMITRIPTYLINE HCL 10 MG TAB PO SCH (21:01)
[2023-05-14] MEDS: ZOLPIDEM TARTRATE 10 MG TAB PO SCH (21:01)
[2023-05-15] VITALS (10 sets, daily range): BP systolic 100–125; BP diastolic 74–86; PULSE 82–125; RESP 17–20; TEMP 97.8–98.7; O2SAT 95–100
[2023-05-15] MEDS: HYDROMORPHONE 1MG/1ML INJ IV PRN ×5 (00:29→23:44)
[2023-05-15] MEDS: LEVOTHYROXINE SODIUM 25 MCG TABLET PO SCH ×2 (05:20→05:35)
[2023-05-15 05:48] LABS: BASOPHILS # (AUTO) 0.1 (0.0-0.1); BASOPHILS % 0.8 % (0.0-1.0); EOSINOPHILS # (AUTO) 0.3 (0.0-0.4); EOSINOPHILS % 2.4 % (0.0-6.0); HEMATOCRIT 27.3 % (38.2-49.6); HEMOGLOBIN 9.5 g/dL (14.0-18.0); LYMPHOCYTES # (AUTO) 0.7 (1.0-3.2); LYMPHOCYTES % 6.2 % (18.0-39.1); MEAN CORPUSCULAR HEMOGLOBIN 27.9 pg (28-32); MEAN CORPUSCULAR HGB CONC 34.8 g/dL (31-35); MEAN CORPUSCULAR VOLUME 80.3 fL (81-99); MONOCYTES # (AUTO) 1.1 (0.2-0.8); MONOCYTES % 9.5 % (4.4-11.3); NEUTROPHILS # (AUTO) 9.5 (2.1-6.9); NEUTROPHILS % 79.7 % (38.7-80.0); PLATELET COUNT 280 x10e3/uL (140-360); RED CELL DISTRIBUTION WIDTH 16.9 % (11.7-14.4); WHITE BLOOD COUNT 11.85 x10e3/uL (4.8-10.8)
[2023-05-15 06:17] LABS: ANION GAP 14.2 mmol/L (8-16); CALCIUM 8.9 mg/dL (8.4-10.2); CREATININE, SERUM 1.83 mg/dL (0.72-1.25); POTASSIUM 5.2 mmol/L (3.5-5.1)
[2023-05-15] MEDS ORDERED: TRAMADOL HCL 50 MG TAB PO PRN (08:00)
[2023-05-15] MEDS ORDERED: SPIRONOLACTONE 25 MG TAB PO SCH (09:00)
[2023-05-15] MEDS: LACTULOSE SYRUP 20 GM/30 ML UDC PO SCH (11:16)
[2023-05-15] MEDS: PANTOPRAZOLE SOD 40 MG TABEC PO SCH (11:16)
[2023-05-15] MEDS: PREGABALIN 50 MG CAP PO SCH ×3 (11:16→20:52)
[2023-05-15] MEDS: RIFAXIMIN 550 MG TABLET PO SCH ×2 (11:16→20:52)
[2023-05-15] MEDS: NICOTINE 21 MG/EA PATCH TOP SCH (18:25)
[2023-05-15] MEDS: GABAPENTIN 300 MG CAP PO SCH (20:52)
[2023-05-15] MEDS: ZOLPIDEM TARTRATE 10 MG TAB PO SCH (20:52)
[2023-05-15] MEDS: AMITRIPTYLINE HCL 10 MG TAB PO SCH (20:52)
[2023-05-16] VITALS (7 sets, daily range): BP systolic 106–148; BP diastolic 67–96; PULSE 116–126; RESP 16–20; TEMP 97.9–99.7; O2SAT 97–100
[2023-05-16] MEDS: LEVOTHYROXINE SODIUM 25 MCG TABLET PO SCH (05:46)
[2023-05-16] MEDS: HYDROMORPHONE 1MG/1ML INJ IV PRN ×3 (05:46→20:42)
[2023-05-16] MEDS: ONDANSETRON HCL INJ 2MG/ML 2ML 2 MG/ML VIAL IV PRN ×2 (05:47→21:24)
[2023-05-16 06:58] LABS: BASOPHILS # (AUTO) 0.1 (0.0-0.1); EOSINOPHILS # (AUTO) 0.3 (0.0-0.4); EOSINOPHILS % 3.1 % (0.0-6.0); HEMATOCRIT 28.5 % (38.2-49.6); HEMOGLOBIN 9.6 g/dL (14.0-18.0); LYMPHOCYTES # (AUTO) 0.6 (1.0-3.2); LYMPHOCYTES % 5.8 % (18.0-39.1); MEAN CORPUSCULAR HEMOGLOBIN 27.7 pg (28-32); MEAN CORPUSCULAR HGB CONC 33.7 g/dL (31-35); MEAN CORPUSCULAR VOLUME 82.4 fL (81-99); MONOCYTES # (AUTO) 1.2 (0.2-0.8); MONOCYTES % 11.6 % (4.4-11.3); PLATELET COUNT 249 x10e3/uL (140-360); RED BLOOD COUNT 3.46 x10e6/uL (4.3-5.7); RED CELL DISTRIBUTION WIDTH 16.6 % (11.7-14.4); WHITE BLOOD COUNT 10.34 x10e3/uL (4.8-10.8)
[2023-05-16 07:34] LABS: ALBUMIN 2.6 g/dL (3.5-5.0); ALBUMIN/GLOBULIN RATIO 0.7 (0.8-2.0); CREATININE, SERUM 1.32 mg/dL (0.72-1.25)
[2023-05-16] MEDS ORDERED: METOPROLOL TARTRATE INJ 1 MG/ML VIAL IV PRN (09:00)
[2023-05-16] MEDS ORDERED: GADOBENATE DIMEGLUMINE 1 ML IV ONE (12:28)
[2023-05-16] MEDS: PANTOPRAZOLE SOD 40 MG TABEC PO SCH (12:50)
[2023-05-16] MEDS: RIFAXIMIN 550 MG TABLET PO SCH ×2 (12:51→20:41)
[2023-05-16] MEDS: PREGABALIN 50 MG CAP PO SCH ×3 (12:51→20:41)
[2023-05-16] MEDS: LACTULOSE SYRUP 20 GM/30 ML UDC PO SCH (13:01)
[2023-05-16] MEDS ORDERED: ALBUMIN 25% 12.5GM 50ML 200 ML IV ONE (13:57)
[2023-05-16] MEDS ORDERED: SODIUM CHLORIDE 0.9% 500ML 500 ML IV ONE (17:15)
[2023-05-16] MEDS: NICOTINE 21 MG/EA PATCH TOP SCH (17:43)
[2023-05-16] MEDS: ZOLPIDEM TARTRATE 10 MG TAB PO SCH (20:41)
[2023-05-16] MEDS: AMITRIPTYLINE HCL 10 MG TAB PO SCH (20:41)
[2023-05-16] MEDS: GABAPENTIN 300 MG CAP PO SCH (20:41)
[2023-05-17] VITALS (9 sets, daily range): BP systolic 107–124; BP diastolic 65–73; PULSE 111–124; RESP 16–20; TEMP 98.2–98.6; O2SAT 98–100
[2023-05-17] MEDS: HYDROMORPHONE 1MG/1ML INJ IV PRN ×3 (05:41→16:16)
[2023-05-17] MEDS: LEVOTHYROXINE SODIUM 25 MCG TABLET PO SCH (05:41)
[2023-05-17] MEDS: ONDANSETRON HCL INJ 2MG/ML 2ML 2 MG/ML VIAL IV PRN ×3 (05:54→16:33)
[2023-05-17 06:37] LABS: CREATININE, SERUM 1.03 mg/dL (0.72-1.25)
[2023-05-17] MEDS: PANTOPRAZOLE SOD 40 MG TABEC PO SCH (08:57)
[2023-05-17] MEDS: PREGABALIN 50 MG CAP PO SCH ×3 (08:57→20:36)
[2023-05-17] MEDS: RIFAXIMIN 550 MG TABLET PO SCH ×2 (08:57→20:36)
[2023-05-17] MEDS: LACTULOSE SYRUP 20 GM/30 ML UDC PO SCH (08:57)
[2023-05-17] MEDS: NICOTINE 21 MG/EA PATCH TOP SCH (16:15)
[2023-05-17] MEDS ORDERED: SODIUM CHLORIDE 452MG TAB PO ONE (17:30)
[2023-05-17] MEDS: CEFTRIAXONE 2 GM in SODIUM CHLORIDE 0.9% 100 ML IV SCH (18:02)
[2023-05-17] MEDS: AMITRIPTYLINE HCL 10 MG TAB PO SCH (20:36)
[2023-05-17] MEDS: GABAPENTIN 300 MG CAP PO SCH (20:36)
[2023-05-17] MEDS: ZOLPIDEM TARTRATE 10 MG TAB PO SCH (20:40)
[2023-05-18] VITALS (7 sets, daily range): BP systolic 105–129; BP diastolic 62–88; PULSE 72–120; RESP 15–19; TEMP 97.1–99.1; O2SAT 97–100
[2023-05-18] MEDS: HYDROMORPHONE 1MG/1ML INJ IV PRN ×5 (00:59→20:19)
[2023-05-18] MEDS: LEVOTHYROXINE SODIUM 25 MCG TABLET PO SCH (05:33)
[2023-05-18 06:25] LABS: ANION GAP 11.9 mmol/L (8-16); CALCIUM 8.6 mg/dL (8.4-10.2); CREATININE, SERUM 0.91 mg/dL (0.72-1.25); POTASSIUM 4.9 mmol/L (3.5-5.1)
[2023-05-18] MEDS: PANTOPRAZOLE SOD 40 MG TABEC PO SCH (08:30)
[2023-05-18] MEDS: PREGABALIN 50 MG CAP PO SCH ×3 (08:30→20:19)
[2023-05-18] MEDS: LACTULOSE SYRUP 20 GM/30 ML UDC PO SCH (08:30)
[2023-05-18] MEDS: CEFTRIAXONE 2 GM in SODIUM CHLORIDE 0.9% 100 ML IV SCH (08:30)
[2023-05-18] MEDS: RIFAXIMIN 550 MG TABLET PO SCH ×2 (08:30→20:19)
[2023-05-18] MEDS ORDERED: SODIUM CHLORIDE 1 GM TAB PO SCH (09:00)
[2023-05-18] MEDS: ONDANSETRON HCL INJ 2MG/ML 2ML 2 MG/ML VIAL IV PRN (09:58)
[2023-05-18] MEDS: SODIUM CHLORIDE 1 GM TAB PO SCH ×2 (12:02→16:30)
[2023-05-18] MEDS: NICOTINE 21 MG/EA PATCH TOP SCH (16:30)
[2023-05-18] MEDS: ZOLPIDEM TARTRATE 10 MG TAB PO SCH (20:19)
[2023-05-18] MEDS: AMITRIPTYLINE HCL 10 MG TAB PO SCH (20:19)
[2023-05-18] MEDS: GABAPENTIN 300 MG CAP PO SCH (20:19)
[2023-05-19] VITALS (7 sets, daily range): BP systolic 107–119; BP diastolic 60–85; PULSE 62–139; RESP 15–18; TEMP 97.6–98.9; O2SAT 97–100
[2023-05-19] MEDS: HYDROMORPHONE 1MG/1ML INJ IV PRN ×2 (02:28→09:39)
[2023-05-19] MEDS: LEVOTHYROXINE SODIUM 25 MCG TABLET PO SCH (05:48)
[2023-05-19] MEDS: RIFAXIMIN 550 MG TABLET PO SCH ×2 (08:36→20:11)
[2023-05-19] MEDS: LACTULOSE SYRUP 20 GM/30 ML UDC PO SCH (08:36)
[2023-05-19] MEDS: CEFTRIAXONE 2 GM in SODIUM CHLORIDE 0.9% 100 ML IV SCH (08:36)
[2023-05-19] MEDS: SODIUM CHLORIDE 1 GM TAB PO SCH ×3 (08:36→16:38)
[2023-05-19] MEDS: PREGABALIN 50 MG CAP PO SCH ×3 (08:36→20:11)
[2023-05-19] MEDS: PANTOPRAZOLE SOD 40 MG TABEC PO SCH (08:36)
[2023-05-19] MEDS: NICOTINE 21 MG/EA PATCH TOP SCH (16:38)
[2023-05-19] MEDS: GABAPENTIN 300 MG CAP PO SCH (20:11)
[2023-05-19] MEDS: HYDROCODONE/APAP 10MG-325MG TAB PO PRN (20:11)
[2023-05-19] MEDS: AMITRIPTYLINE HCL 10 MG TAB PO SCH (20:11)
[2023-05-19] MEDS: ZOLPIDEM TARTRATE 10 MG TAB PO SCH (20:11)
[2023-05-20] VITALS: BP 128/79; PULSE 94; RESP 18; TEMP 98.8; O2SAT 97
[2023-05-20 04:00] VITALS: BP 96/73; PULSE 115; RESP 18; TEMP 98.7; O2SAT 94
[2023-05-20] MEDS: LEVOTHYROXINE SODIUM 25 MCG TABLET PO SCH (05:12)
[2023-05-20] MEDS: HYDROCODONE/APAP 10MG-325MG TAB PO PRN (05:12)
[2023-05-20 08:00] VITALS: BP 96/73; PULSE 115; RESP 18; TEMP 98.7; O2SAT 94
[2023-05-20] MEDS: CEFTRIAXONE 2 GM in SODIUM CHLORIDE 0.9% 100 ML IV SCH (08:26)
[2023-05-20] MEDS: SODIUM CHLORIDE 1 GM TAB PO SCH ×2 (08:26→12:37)
[2023-05-20] MEDS: RIFAXIMIN 550 MG TABLET PO SCH (08:26)
[2023-05-20] MEDS: LACTULOSE SYRUP 20 GM/30 ML UDC PO SCH (08:27)
[2023-05-20] MEDS: PANTOPRAZOLE SOD 40 MG TABEC PO SCH (08:27)
[2023-05-20] MEDS: PREGABALIN 50 MG CAP PO SCH ×2 (08:27→15:26)
[2023-05-20 12:38] VITALS: BP 103/84; PULSE 78; RESP 19; TEMP 98; O2SAT 96
[2023-05-20] MEDS ORDERED: SODIUM CHLORI1000 M2 PO (14:54)
[2023-05-20] MEDS ORDERED: ALDACTONE25 MG PO (14:54)
== END 2023-05-20 16:25 | disposition home or self-care (01) | DRG 540 ==
LOC: ER 13:12 → ERHOLD 13:34 → MED/SURG2 16:08
PROVIDERS: ADMIT Internal Medicine; ATTEND Internal Medicine
PROC: 0W9G3ZZ Drainage of Peritoneal Cavity, Percutaneous Approach (ICD-10-PCS; 2023-05-16)
PROC: 02HV33Z Insertion of Infusion Device into Superior Vena Cava, Percutaneous Approach (ICD-10-PCS; principal; 2023-05-17)
PROC: B548ZZA Ultrasonography of Superior Vena Cava, Guidance (ICD-10-PCS; 2023-05-17)
DX: M86.8X6 Other osteomyelitis, lower leg (principal); E87.1 Hypo-osmolality and hyponatremia; K76.6 Portal hypertension; N17.9 Acute kidney failure, unspecified; E87.5 Hyperkalemia; R16.1 Splenomegaly, not elsewhere classified; I10 Essential (primary) hypertension; R53.81 Other malaise; R26.9 Unspecified abnormalities of gait and mobility; Z66 Do not resuscitate; E03.9 Hypothyroidism, unspecified; D64.9 Anemia, unspecified; F10.20 Alcohol dependence, uncomplicated; K70.31 Alcoholic cirrhosis of liver with ascites; K21.9 Gastro-esophageal reflux disease without esophagitis; Z91.81 History of falling; Z81.1 Family history of alcohol abuse and dependence; Z79.899 Other long term (current) drug therapy; Z79.890 Hormone replacement therapy; Z20.822 Contact with and (suspected) exposure to COVID-19
CPT/HCPCS: 36415; 36569; 49083; 71045; 80048; 80053; 83930; 83935; 84443; 85025; 85651; 87040; 94799; 99284; J0696; J1170; J2270; J2405; J2543; J7040; J7050; U0002

== ENCOUNTER → 2023-05-24 | Outpatient (REF) | payer BC ==
[~2023-05-24] MED LIST changes: +ALBUMIN 25% 12.5GM 50ML 200 ML IV ONE; +ALDACTONE25 MG PO
== END ==
LOC: US 10:23
PROVIDERS: ATTEND Internal Medicine Gastroenterology
DX: R18.8 Other ascites (principal); K74.60 Unspecified cirrhosis of liver; R16.0 Hepatomegaly, not elsewhere classified; I85.00 Esophageal varices without bleeding; I10 Essential (primary) hypertension; K57.30 Diverticulosis of large intestine without perforation or abscess without bleeding; Z68.21 Body mass index [BMI] 21.0-21.9, adult; Z86.010 Personal history of colon polyps
CPT/HCPCS: 49083; 76700

== ENCOUNTER → 2023-06-14 | Outpatient (REF) | payer BC ==
[~2023-06-14] MED LIST changes: +ALBUMIN 25% 12.5GM 50ML 100 ML IV ONE
== END ==
LOC: US 08:42
PROVIDERS: ATTEND Internal Medicine Gastroenterology
DX: R18.8 Other ascites (principal)
CPT/HCPCS: 49083; C1729

== ENCOUNTER → 2023-06-27 | Outpatient (REF) | payer BC ==
[~2023-06-27] MED LIST changes: -ALBUMIN 25% 12.5GM 50ML 100 ML IV ONE
[2023-06-27 13:27] LABS: BASOPHILS # (AUTO) 0.1 (0.0-0.1); BASOPHILS % 0.5 % (0.0-1.0); EOSINOPHILS # (AUTO) 0.3 (0.0-0.4); EOSINOPHILS % 2.2 % (0.0-6.0); HEMATOCRIT 26.7 % (38.2-49.6); HEMOGLOBIN 8.8 g/dL (14.0-18.0); LYMPHOCYTES # (AUTO) 0.6 (1.0-3.2); LYMPHOCYTES % 4.5 % (18.0-39.1); MEAN CORPUSCULAR HEMOGLOBIN 27.8 pg (28-32); MEAN CORPUSCULAR VOLUME 84.2 fL (81-99); MONOCYTES # (AUTO) 1.2 (0.2-0.8); MONOCYTES % 9.4 % (4.4-11.3); NEUTROPHILS # (AUTO) 10.5 (2.1-6.9); NEUTROPHILS % 82.1 % (38.7-80.0); PLATELET COUNT 208 x10e3/uL (140-360); RED BLOOD COUNT 3.17 x10e6/uL (4.3-5.7); RED CELL DISTRIBUTION WIDTH 17.2 % (11.7-14.4); WHITE BLOOD COUNT 12.78 x10e3/uL (4.8-10.8)
[2023-06-27 13:41] LABS: INR 1.07; PROTHROMBIN TIME 14.1 seconds (11.9-14.5)
[2023-06-27 13:42] LABS: PARTIAL THROMBOPLASTIN TIME 37.3 seconds (23.8-35.5)
== END ==
LOC: US 13:03
PROVIDERS: ATTEND Internal Medicine Gastroenterology
DX: R18.8 Other ascites (principal)
CPT/HCPCS: 36415; 49083; 85025; 85610; 85730

== ENCOUNTER → 2023-07-31 | Outpatient (REF) | payer BC ==
[2023-07-31 10:33] LABS: BASOPHILS % 0.3 % (0.0-1.0); EOSINOPHILS # (AUTO) 0.4 (0.0-0.4); EOSINOPHILS % 3.4 % (0.0-6.0); HEMATOCRIT 27.2 % (38.2-49.6); HEMOGLOBIN 9.1 g/dL (14.0-18.0); LYMPHOCYTES # (AUTO) 0.8 (1.0-3.2); MEAN CORPUSCULAR HEMOGLOBIN 27.7 pg (28-32); MEAN CORPUSCULAR HGB CONC 33.5 g/dL (31-35); MEAN CORPUSCULAR VOLUME 82.7 fL (81-99); MONOCYTES % 9.6 % (4.4-11.3); NEUTROPHILS % 75.3 % (38.7-80.0); PLATELET COUNT 235 x10e3/uL (140-360); RED BLOOD COUNT 3.29 x10e6/uL (4.3-5.7); RED CELL DISTRIBUTION WIDTH 18.1 % (11.7-14.4); WHITE BLOOD COUNT 10.67 x10e3/uL (4.8-10.8)
[2023-07-31 10:43] LABS: INR 1.16
[2023-07-31 10:44] LABS: PARTIAL THROMBOPLASTIN TIME 37.1 seconds (23.8-35.5)
[2023-07-31 10:48] LABS: ANION GAP 12.2 mmol/L (8-16); CALCIUM 8.5 mg/dL (8.4-10.2); CREATININE, SERUM 0.82 mg/dL (0.72-1.25)
[2023-07-31 10:51] LABS: POTASSIUM 5.2 mmol/L (3.5-5.1)
== END ==
LOC: US 10:11
PROVIDERS: ATTEND Internal Medicine Gastroenterology
DX: R18.8 Other ascites (principal)
CPT/HCPCS: 36415; 49083; 80048; 85025; 85610; 85730

== ENCOUNTER → 2023-08-12 | Outpatient (REF) | payer BC ==
[~2023-08-12] MED LIST changes: -ALBUMIN 25% 12.5GM 50ML 200 ML IV ONE; +ALBUMIN 25% 12.5GM 50ML 300 ML IV ONE
== END ==
LOC: US 10:25
PROVIDERS: ATTEND Internal Medicine Gastroenterology
DX: R18.8 Other ascites (principal)
CPT/HCPCS: 49083

== ENCOUNTER → 2023-08-21 | Outpatient (REF) | payer BC ==
[~2023-08-21] MED LIST changes: +LIDOCAINE HCL 1% LOCAL INJ 20 ML VIAL ONE
== END ==
LOC: US 09:26
PROVIDERS: ATTEND Internal Medicine Gastroenterology
DX: R18.8 Other ascites (principal)
CPT/HCPCS: 49083; J2001

== ENCOUNTER → 2023-11-06 | Outpatient (REF) | payer BC ==
[~2023-11-06] MED LIST changes: +ALBUMIN 25% 12.5GM 0.25 GM/ML BTL IV ONE; -ALBUMIN 25% 12.5GM 50ML 300 ML IV ONE; -LIDOCAINE HCL 1% LOCAL INJ 20 ML VIAL ONE
== END ==
LOC: US 11:35
PROVIDERS: ATTEND Internal Medicine Gastroenterology
DX: R18.8 Other ascites (principal)
CPT/HCPCS: 49083

== ENCOUNTER → 2023-11-13 | Outpatient (REF) | payer BC ==
[~2023-11-13] MED LIST changes: -ALBUMIN 25% 12.5GM 0.25 GM/ML BTL IV ONE; +ALBUMIN 25% 12.5GM 50ML 100 ML IV ONE
[2023-11-13 13:33] LABS: ALBUMIN 3.4 g/dL (3.5-5.0); ALBUMIN/GLOBULIN RATIO 1.1 (0.8-2.0); ANION GAP 17.1 mmol/L (8-16); BILIRUBIN,TOTAL 1.4 mg/dL (0.2-1.2); CALCIUM 9.4 mg/dL (8.4-10.2); CREATININE, SERUM 1.53 mg/dL (0.72-1.25); POTASSIUM 5.1 mmol/L (3.5-5.1); TOTAL PROTEIN 6.5 g/dL (6.5-8.1)
== END ==
LOC: US 10:33
PROVIDERS: ATTEND Internal Medicine Gastroenterology
DX: R18.8 Other ascites (principal)
CPT/HCPCS: 36415; 49083; 80053; C1729

== ENCOUNTER → 2023-11-29 | Outpatient (REF) | payer BC ==
[~2023-11-29] MED LIST changes: -ALBUMIN 25% 12.5GM 50ML 100 ML IV ONE; +ALBUMIN 25% 12.5GM 50ML 200 ML IV ONE
== END ==
LOC: US 09:13
PROVIDERS: ATTEND Internal Medicine Gastroenterology
DX: R18.8 Other ascites (principal)
CPT/HCPCS: 49083

== ENCOUNTER → 2024-01-15 | Outpatient (REF) | payer BC ==
[~2024-01-15] MED LIST changes: +ALBUMIN 25% 12.5GM 50ML 150 ML IV ONE; -ALBUMIN 25% 12.5GM 50ML 200 ML IV ONE
== END ==
LOC: US 10:59
PROVIDERS: ATTEND Internal Medicine Gastroenterology
DX: R18.8 Other ascites (principal)
CPT/HCPCS: 49083

== ENCOUNTER → 2024-01-29 | Outpatient (REF) | payer BC ==
[~2024-01-29] MED LIST changes: -ALBUMIN 25% 12.5GM 50ML 150 ML IV ONE; +ALBUMIN 25% 12.5GM 50ML 200 ML IV ONE
== END ==
LOC: US 14:03
PROVIDERS: ATTEND Internal Medicine Gastroenterology
DX: R18.8 Other ascites (principal)
CPT/HCPCS: 49083; C1729

== ENCOUNTER → 2024-02-24 | Outpatient (REF) | payer BC ==
[~2024-02-24] MED LIST changes: -ALBUMIN 25% 12.5GM 50ML 200 ML IV ONE
== END ==
LOC: MRI 13:32
PROVIDERS: ATTEND Internal Medicine
DX: M79.605 Pain in left leg (principal); R60.9 Edema, unspecified

== ENCOUNTER → 2024-02-26 | Outpatient (REF) | payer BC ==
[~2024-02-26] MED LIST changes: +ALBUMIN 25% 12.5GM 50ML 200 ML IV ONE; +FUROSEMIDE40 MG PO; +SPIRONOLACTONE25 MG PO
== END ==
LOC: US 11:33
PROVIDERS: ATTEND Internal Medicine Gastroenterology
DX: R18.8 Other ascites (principal)
CPT/HCPCS: 49083; C1729

== ENCOUNTER 2024-03-01 17:08 | Inpatient (IN) | payer BC, MEDICARE ==
[2024-03-01] VITALS (9 sets, daily range): BP systolic 109–138; BP diastolic 78–87; PULSE 98–106; RESP 14–21; TEMP 97.9–98.6; O2SAT 94–99
[~2024-03-01] VITALS: Ht 188 cm; Wt 72.6 kg
[~2024-03-01 17:08] MED LIST changes: -ALBUMIN 25% 12.5GM 50ML 200 ML IV ONE; -FUROSEMIDE40 MG PO; -SPIRONOLACTONE25 MG PO
[2024-03-01 18:38] LABS: BASOPHILS # (AUTO) 0.1 (0.0-0.1); BASOPHILS % 0.6 % (0.0-1.0); EOSINOPHILS # (AUTO) 0.2 (0.0-0.4); EOSINOPHILS % 2.4 % (0.0-6.0); HEMATOCRIT 29.2 % (38.2-49.6); LYMPHOCYTES # (AUTO) 0.3 (1.0-3.2); LYMPHOCYTES % 4.3 % (18.0-39.1); MEAN CORPUSCULAR HEMOGLOBIN 31.2 pg (28-32); MEAN CORPUSCULAR HGB CONC 34.2 g/dL (31-35); MONOCYTES # (AUTO) 0.9 (0.2-0.8); MONOCYTES % 11.4 % (4.4-11.3); NEUTROPHILS # (AUTO) 6.4 (2.1-6.9); NEUTROPHILS % 80.4 % (38.7-80.0); PLATELET COUNT 158 x10e3/uL (140-360); RED BLOOD COUNT 3.21 x10e6/uL (4.3-5.7); RED CELL DISTRIBUTION WIDTH 15.5 % (11.7-14.4); WHITE BLOOD COUNT 7.97 x10e3/uL (4.8-10.8)
[2024-03-01 18:52] LABS: ALANINE AMINOTRANSFERASE 7 IU/L (0-55); ALBUMIN 3.1 g/dL (3.5-5.0); ALBUMIN/GLOBULIN RATIO 0.9 (0.8-2.0); ALKALINE PHOSPHATASE 85 IU/L (40-150); ANION GAP 13.1 mmol/L (8-16); BLOOD UREA NITROGEN 24 mg/dL (7-26); BUN/CREATININE RATIO 18 (6-25); CALCIUM 8.8 mg/dL (8.4-10.2); CARBON DIOXIDE 20 mmol/L (22-29); CHLORIDE 89 mmol/L (98-107); CREATINE KINASE 269 IU/L (30-200); CREATININE, SERUM 1.33 mg/dL (0.72-1.25); EST GLOMERULAR FILTRATION RATE 60 ML/MIN (>=60); GLUCOSE 101 mg/dL (74-118); TOTAL PROTEIN 6.6 g/dL (6.5-8.1)
[2024-03-01 18:56] LABS: POTASSIUM 5.1 mmol/L (3.5-5.1); SODIUM 117 mmol/L (136-145)
[2024-03-01 19:06] LABS: TROPONIN I < 0.05 ng/mL (0.0-0.40)
[2024-03-01] MEDS ORDERED: ONDANSETRON HCL INJ 2MG/ML 2ML 2 MG/ML VIAL IV PRN (20:00)
[2024-03-01] MEDS ORDERED: ACETAMINOPHEN 325 MG TAB PO PRN ×2 (21:30→21:45)
[2024-03-01] MEDS ORDERED: GUAIFENESIN/DEXTROMETHORPHAN LIQD 5 ML UDC PO PRN (21:30)
[2024-03-01] MEDS ORDERED: MELATONIN 3 MG TAB PO PRN (21:30)
[2024-03-01] MEDS ORDERED: HYDRALAZINE HCL 20 MG/ML VIAL IV PRN (21:30)
[2024-03-01] MEDS ORDERED: MAGNESIUM/ALUMINUM/SIMETHICONE 30 ML UDC PO PRN (21:30)
[2024-03-01] MEDS ORDERED: DOCUSATE SODIUM 100 MG CAP PO PRN (21:30)
[2024-03-01] MEDS ORDERED: LACTULOSE SYRUP 20 GM/30 ML UDC PO PRN (21:45)
[2024-03-01] MEDS ORDERED: SPIRONOLACTONE25 MG PO (21:45)
[2024-03-01] MEDS: MUPIROCIN 2% OINT 22 GM TUBE TOP SCH (22:14)
[2024-03-01] MEDS: Morphine 2mg Syringe 2 MG/ML SYR IV PRN (22:15)
[2024-03-01] MEDS: SODIUM CHLORIDE 0.9% 500ML 500 ML IV ONE (22:15)
[2024-03-02] VITALS (51 sets, daily range): BP systolic 93–130; BP diastolic 50–95; PULSE 53–134; RESP 11–27; TEMP 98.4–99; O2SAT 84–100
[2024-03-02] MEDS: LEVOTHYROXINE SODIUM 50 MCG TAB PO SCH (05:12)
[2024-03-02 06:33] LABS: BASOPHILS % 0.2 % (0.0-1.0); EOSINOPHILS # (AUTO) 0.3 (0.0-0.4); EOSINOPHILS % 4.2 % (0.0-6.0); HEMATOCRIT 30.5 % (38.2-49.6); HEMOGLOBIN 10.2 g/dL (14.0-18.0); LYMPHOCYTES # (AUTO) 0.3 (1.0-3.2); LYMPHOCYTES % 4.5 % (18.0-39.1); MEAN CORPUSCULAR HEMOGLOBIN 30.6 pg (28-32); MEAN CORPUSCULAR HGB CONC 33.4 g/dL (31-35); MEAN CORPUSCULAR VOLUME 91.6 fL (81-99); MONOCYTES # (AUTO) 0.9 (0.2-0.8); MONOCYTES % 13.5 % (4.4-11.3); NEUTROPHILS # (AUTO) 5.1 (2.1-6.9); NEUTROPHILS % 76.8 % (38.7-80.0); PLATELET COUNT 129 x10e3/uL (140-360); RED BLOOD COUNT 3.33 x10e6/uL (4.3-5.7); RED CELL DISTRIBUTION WIDTH 15.3 % (11.7-14.4); WHITE BLOOD COUNT 6.61 x10e3/uL (4.8-10.8)
[2024-03-02 06:52] LABS: ALBUMIN 2.9 g/dL (3.5-5.0); ALBUMIN/GLOBULIN RATIO 0.9 (0.8-2.0); ANION GAP 11.9 mmol/L (8-16); BILIRUBIN,TOTAL 1.3 mg/dL (0.2-1.2); CALCIUM 8.8 mg/dL (8.4-10.2); CREATININE, SERUM 1.17 mg/dL (0.72-1.25); POTASSIUM 4.9 mmol/L (3.5-5.1); TOTAL PROTEIN 6.1 g/dL (6.5-8.1)
[2024-03-02] MEDS: PANTOPRAZOLE SOD 40 MG TABEC PO SCH (07:30)
[2024-03-02] MEDS: RIFAXIMIN 550 MG TABLET PO SCH (07:48)
[2024-03-02] MEDS: MULTIVITAMINS/MINERALS TAB PO SCH (07:48)
[2024-03-02] MEDS: LIDOCAINE 4% PATCH TP SCH (07:48)
[2024-03-02] MEDS: THIAMINE HCL 100 MG TAB PO SCH (07:48)
[2024-03-02] MEDS ORDERED: FUROSEMIDE40 MG PO (10:49)
[2024-03-02] MEDS: TRAMADOL HCL 50 MG TAB PO PRN (13:08)
[2024-03-02 20:27] LABS: ANION GAP 13.5 mmol/L (8-16); CALCIUM 8.5 mg/dL (8.4-10.2); CREATININE, SERUM 1.06 mg/dL (0.72-1.25)
[2024-03-02 20:29] LABS: POTASSIUM 5.5 mmol/L (3.5-5.1)
[2024-03-02 20:44] LABS: BLOOD UREA NITROGEN 21 mg/dL (7-26); GLUCOSE 106 mg/dL (74-118); OSMOLALITY,SERUM 251 mOsm/kg (278-305); SODIUM 123 mmol/L (136-145)
[2024-03-02] MEDS: GABAPENTIN 100 MG CAP PO PRN (21:52)
[2024-03-02 22:00] LABS: AMPHETAMINES SCREEN,URINE NEGATIVE (NEGATIVE); BENZODIAZEPINES SCREEN,URINE NEGATIVE (NEGATIVE); CANNABINOIDS SCREEN,URINE NEGATIVE (NEGATIVE); METHADONE SCREEN, URINE NEGATIVE (NEGATIVE); OPIATES SCREEN,URINE POSITIVE (NEGATIVE); PHENCYCLIDINE SCREEN,URINE NEGATIVE (NEGATIVE)
[2024-03-03] VITALS (8 sets, daily range): BP systolic 95–117; BP diastolic 58–80; PULSE 90–112; RESP 14–21; TEMP 98.3; O2SAT 95–100
[2024-03-03 06:26] LABS: BASOPHILS % 0.1 % (0.0-1.0); EOSINOPHILS # (AUTO) 0.3 (0.0-0.4); HEMATOCRIT 30.2 % (38.2-49.6); HEMOGLOBIN 10.1 g/dL (14.0-18.0); LYMPHOCYTES # (AUTO) 0.4 (1.0-3.2); LYMPHOCYTES % 5.8 % (18.0-39.1); MEAN CORPUSCULAR HEMOGLOBIN 30.8 pg (28-32); MEAN CORPUSCULAR HGB CONC 33.4 g/dL (31-35); MEAN CORPUSCULAR VOLUME 92.1 fL (81-99); NEUTROPHILS # (AUTO) 5.1 (2.1-6.9); NEUTROPHILS % 74.4 % (38.7-80.0); PLATELET COUNT 140 x10e3/uL (140-360); RED BLOOD COUNT 3.28 x10e6/uL (4.3-5.7); RED CELL DISTRIBUTION WIDTH 15.8 % (11.7-14.4); WHITE BLOOD COUNT 6.92 x10e3/uL (4.8-10.8)
[2024-03-03 06:49] LABS: ALBUMIN 2.8 g/dL (3.5-5.0); ALBUMIN/GLOBULIN RATIO 0.9 (0.8-2.0); BILIRUBIN,TOTAL 0.9 mg/dL (0.2-1.2); CALCIUM 8.8 mg/dL (8.4-10.2); CREATININE, SERUM 0.99 mg/dL (0.72-1.25)
[2024-03-03] MEDS ORDERED: B-1100 MG PO (09:48)
[2024-03-03] MEDS ORDERED: ONE-A-DAY ESSE1 EACH PO (09:48)
[2024-03-03] MEDS ORDERED: MUPIROCIN22 GM TOP (09:48)
[2024-03-03] MEDS ORDERED: LIDOCAN III1 EACH TP (09:48)
[2024-03-03] MEDS ORDERED: ULTRAM 50MG50 MG PO (10:18)
== END 2024-03-03 11:15 | disposition home or self-care (01) | DRG 206 ==
LOC: ER 17:36 → ERHOLD 19:54 → ICU 21:06
PROVIDERS: ADMIT Internal Medicine; ATTEND Internal Medicine
DX: S22.32XA Fracture of one rib, left side, initial encounter for closed fracture (principal); N17.9 Acute kidney failure, unspecified; E87.1 Hypo-osmolality and hyponatremia; E86.0 Dehydration; K70.30 Alcoholic cirrhosis of liver without ascites; D63.8 Anemia in other chronic diseases classified elsewhere; I10 Essential (primary) hypertension; E03.9 Hypothyroidism, unspecified; S03.02XA Dislocation of jaw, left side, initial encounter; S00.81XA Abrasion of other part of head, initial encounter; S51.012A Laceration without foreign body of left elbow, initial encounter; T14.8XXA Other injury of unspecified body region, initial encounter; F10.10 Alcohol abuse, uncomplicated; W18.30XA Fall on same level, unspecified, initial encounter; Z79.890 Hormone replacement therapy; Z98.1 Arthrodesis status; Z82.49 Family history of ischemic heart disease and other diseases of the circulatory system; Y92.009 Unspecified place in unspecified non-institutional (private) residence as the place of occurrence of the external cause
CPT/HCPCS: 36415; 70450; 71250; 72125; 80048; 80053; 80307; 80320; 82140; 82550; 82947; 83935; 84295; 84300; 84484; 84520; 85025; 93005; 94799; 99252; 99284; J2270; J3411; J7040

== ENCOUNTER → 2024-03-12 | Outpatient (REF) | payer BC, MEDICARE ==
[~2024-03-12] MED LIST changes: +ALBUMIN 25% 12.5GM 50ML 150 ML IV ONE; +B-1100 MG PO; +FUROSEMIDE40 MG PO; +LIDOCAN III1 EACH TP; +MUPIROCIN22 GM TOP; +ONE-A-DAY ESSE1 EACH PO; +SPIRONOLACTONE25 MG PO
== END ==
LOC: US 12:24
PROVIDERS: ATTEND Internal Medicine Gastroenterology
DX: R18.8 Other ascites (principal)
CPT/HCPCS: 49083

== ENCOUNTER → 2024-03-25 | Outpatient (REF) | payer BC, MEDICARE ==
[~2024-03-25] MED LIST changes: -ALBUMIN 25% 12.5GM 50ML 150 ML IV ONE
== END ==
LOC: RAD 09:57
PROVIDERS: ATTEND Internal Medicine
DX: S22.39XA Fracture of one rib, unspecified side, initial encounter for closed fracture (principal)
CPT/HCPCS: 71111

== ENCOUNTER → 2024-03-25 | Outpatient (REF) | payer BC, MEDICARE ==
[~2024-03-25] MED LIST changes: +ALBUMIN 25% 12.5GM 50ML 200 ML IV ONE
[2024-03-25 10:25] LABS: BASOPHILS % 0.3 % (0.0-1.0); EOSINOPHILS # (AUTO) 0.4 (0.0-0.4); EOSINOPHILS % 5.1 % (0.0-6.0); HEMATOCRIT 30.4 % (38.2-49.6); LYMPHOCYTES # (AUTO) 0.6 (1.0-3.2); MEAN CORPUSCULAR HEMOGLOBIN 30.1 pg (28-32); MEAN CORPUSCULAR HGB CONC 32.9 g/dL (31-35); MEAN CORPUSCULAR VOLUME 91.6 fL (81-99); MONOCYTES # (AUTO) 0.8 (0.2-0.8); MONOCYTES % 10.2 % (4.4-11.3); NEUTROPHILS % 76.1 % (38.7-80.0); PLATELET COUNT 187 x10e3/uL (140-360); RED BLOOD COUNT 3.32 x10e6/uL (4.3-5.7); WHITE BLOOD COUNT 7.91 x10e3/uL (4.8-10.8)
[2024-03-25 10:34] LABS: INR 1.1; PROTHROMBIN TIME 14.8 seconds (11.9-14.5)
[2024-03-25 10:35] LABS: PARTIAL THROMBOPLASTIN TIME 34.4 seconds (23.8-35.5)
[2024-03-25 10:44] LABS: ANION GAP 13.8 mmol/L (8-16); CALCIUM 8.9 mg/dL (8.4-10.2); CREATININE, SERUM 1.38 mg/dL (0.72-1.25); POTASSIUM 4.8 mmol/L (3.5-5.1)
== END ==
LOC: US 09:34
PROVIDERS: ATTEND Internal Medicine Gastroenterology
DX: R18.8 Other ascites (principal)
CPT/HCPCS: 36415; 49083; 80048; 85025; 85610; 85730; C1729

== ENCOUNTER → 2024-04-07 | Outpatient (REF) | payer BC, MEDICARE | LOC: US 10:06 | PROVIDERS: ATTEND Internal Medicine Gastroenterology | DX: R18.8 Other ascites (principal) | CPT/HCPCS: 49083; C1729 ==

== ENCOUNTER → 2024-04-22 | Outpatient (REF) | payer BC, MEDICARE | LOC: US 13:12 | PROVIDERS: ATTEND Internal Medicine | DX: R18.8 Other ascites (principal) | CPT/HCPCS: 49083 ==

== ENCOUNTER 2024-04-25 15:51 | Emergency (ER) | payer BC, MEDICARE ==
[~2024-04-25] VITALS: Ht 188 cm; Wt 72.6 kg
[~2024-04-25 15:51] MED LIST changes: -ALBUMIN 25% 12.5GM 50ML 200 ML IV ONE
[2024-04-25 16:53] VITALS: PULSE 91; RESP 17; TEMP 98.7; O2SAT 100
[2024-04-25] MEDS ORDERED: Morphine 4mg INJECTION 4 MG/ML INJ ONE (17:27)
[2024-04-25] MEDS: ONDANSETRON HCL INJ 2MG/ML 2ML 2 MG/ML VIAL IM STA (17:35)
[2024-04-25] MEDS: Morphine 4mg INJECTION 4 MG/ML INJ IM ONE (17:35)
[2024-04-25] MEDS ORDERED: ULTRAM 50MG50 MG PO (18:27)
[2024-04-25] MEDS ORDERED: AZITHROMYCIN250 MG PO (18:27)
[2024-04-25] MEDS ORDERED: PREDNISONE20 MG PO (18:27)
[2024-04-25] MEDS ORDERED: ACETAMINOPHEN-1 EAC4 PO (18:30)
== END 2024-04-25 18:49 | disposition home or self-care (01) ==
LOC: ER 17:58
DX: S22.41XA Multiple fractures of ribs, right side, initial encounter for closed fracture (principal); R18.8 Other ascites; R10.32 Left lower quadrant pain; I70.90 Unspecified atherosclerosis
CPT/HCPCS: 71250; 99283; J2270; J2405

== ENCOUNTER 2024-04-26 12:56 | Inpatient (IN) | payer BC, MEDICARE ==
[~2024-04-26] VITALS: Ht 188 cm; Wt 79.4 kg
[~2024-04-26 12:56] MED LIST changes: +ACETAMINOPHEN-1 EAC4 PO; +AZITHROMYCIN250 MG PO; +GLYCOPYRROLATE INJ 0.2 MG/ML VIAL ONE; +PHENYLEPHRINE HCL 1% 10 MG/ML VIAL ONE; +PREDNISONE20 MG PO
[2024-04-26] MEDS ORDERED: SODIUM CHLORIDE FLUSH 10 ML SYR IV PRN (14:00)
[2024-04-26 14:03] LABS: BASOPHILS % 0.1 % (0.0-1.0); EOSINOPHILS # (AUTO) 0.2 (0.0-0.4); EOSINOPHILS % 1.4 % (0.0-6.0); HEMOGLOBIN 10.3 g/dL (14.0-18.0); LYMPHOCYTES # (AUTO) 0.2 (1.0-3.2); LYMPHOCYTES % 1.5 % (18.0-39.1); MEAN CORPUSCULAR HEMOGLOBIN 30.9 pg (28-32); MEAN CORPUSCULAR HGB CONC 34.3 g/dL (31-35); MEAN CORPUSCULAR VOLUME 90.1 fL (81-99); MONOCYTES # (AUTO) 1.3 (0.2-0.8); MONOCYTES % 9.3 % (4.4-11.3); NEUTROPHILS # (AUTO) 12.4 (2.1-6.9); NEUTROPHILS % 86.7 % (38.7-80.0); PLATELET COUNT 204 x10e3/uL (140-360); RED BLOOD COUNT 3.33 x10e6/uL (4.3-5.7); RED CELL DISTRIBUTION WIDTH 16.1 % (11.7-14.4); WHITE BLOOD COUNT 14.34 x10e3/uL (4.8-10.8)
[2024-04-26 14:08] LABS: INR 1.13; PARTIAL THROMBOPLASTIN TIME 34.4 seconds (23.8-35.5); PROTHROMBIN TIME 15.1 seconds (11.9-14.5)
[2024-04-26 14:15] LABS: ALBUMIN 3.4 g/dL (3.5-5.0); ANION GAP 13.7 mmol/L (8-16); BILIRUBIN,TOTAL 1.8 mg/dL (0.2-1.2); CALCIUM 9.1 mg/dL (8.4-10.2); CREATININE, SERUM 0.91 mg/dL (0.72-1.25); POTASSIUM 4.7 mmol/L (3.5-5.1); TOTAL PROTEIN 6.8 g/dL (6.5-8.1)
[2024-04-26] MEDS: SODIUM CHLORIDE 0.9% 250ML 250 ML IV ONE (14:49)
[2024-04-26] MEDS: ONDANSETRON HCL INJ 2MG/ML 2ML 2 MG/ML VIAL IV STA (14:49)
[2024-04-26] MEDS: Morphine 2mg Syringe 2 MG/ML SYR IV ONE (14:49)
[2024-04-26 16:10] VITALS: TEMP 99.8
[2024-04-26] MEDS: SODIUM CHLORIDE 0.9% 1000ML 1,000 ML IV SCH (17:37)
[2024-04-26 17:40] VITALS: PULSE 91; RESP 18
[2024-04-26 17:59] LABS: HEMATOCRIT 27.8 % (38.2-49.6); HEMOGLOBIN 9.3 g/dL (14.0-18.0)
[2024-04-26] MEDS: NICOTINE 21 MG/EA PATCH TOP SCH (18:15)
[2024-04-26] MEDS: ONDANSETRON HCL INJ 2MG/ML 2ML 2 MG/ML VIAL IV PRN (18:51)
[2024-04-26] MEDS: Morphine 2mg Syringe 2 MG/ML SYR IV PRN (18:51)
[2024-04-26 21:00] VITALS: BP 121/80; PULSE 91; RESP 20; TEMP 97.8; O2SAT 100
[2024-04-26 21:07] VITALS: BP 121/80; PULSE 91; RESP 20; TEMP 97.8; O2SAT 94
[2024-04-26 23:30] LABS: HEMATOCRIT 25.7 % (38.2-49.6); HEMOGLOBIN 8.7 g/dL (14.0-18.0)
[2024-04-27] VITALS (11 sets, daily range): BP systolic 115–135; BP diastolic 76–86; PULSE 90–115; RESP 18–20; TEMP 97.8–98.6; O2SAT 93–100
[2024-04-27 03:24] LABS: HEMATOCRIT 24.3 % (38.2-49.6); HEMOGLOBIN 8.1 g/dL (14.0-18.0)
[2024-04-27 06:02] LABS: BASOPHILS % 0.1 % (0.0-1.0); EOSINOPHILS # (AUTO) 0.2 (0.0-0.4); EOSINOPHILS % 2.1 % (0.0-6.0); HEMATOCRIT 26.3 % (38.2-49.6); HEMOGLOBIN 8.7 g/dL (14.0-18.0); LYMPHOCYTES # (AUTO) 0.3 (1.0-3.2); LYMPHOCYTES % 2.6 % (18.0-39.1); MEAN CORPUSCULAR HEMOGLOBIN 30.3 pg (28-32); MEAN CORPUSCULAR HGB CONC 33.1 g/dL (31-35); MEAN CORPUSCULAR VOLUME 91.6 fL (81-99); MONOCYTES # (AUTO) 1.1 (0.2-0.8); NEUTROPHILS # (AUTO) 8.2 (2.1-6.9); NEUTROPHILS % 82.5 % (38.7-80.0); PLATELET COUNT 158 x10e3/uL (140-360); RED BLOOD COUNT 2.87 x10e6/uL (4.3-5.7); RED CELL DISTRIBUTION WIDTH 16.4 % (11.7-14.4); WHITE BLOOD COUNT 9.94 x10e3/uL (4.8-10.8)
[2024-04-27 06:13] LABS: ALBUMIN 2.9 g/dL (3.5-5.0); ANION GAP 14.2 mmol/L (8-16); CALCIUM 8.2 mg/dL (8.4-10.2); CREATININE, SERUM 0.61 mg/dL (0.72-1.25); POTASSIUM 4.2 mmol/L (3.5-5.1); TOTAL PROTEIN 5.9 g/dL (6.5-8.1)
[2024-04-27 06:28] LABS: BILIRUBIN,TOTAL 1.5 mg/dL (0.2-1.2)
[2024-04-27] MEDS ORDERED: METOPROLOL TARTRATE INJ 1 MG/ML VIAL IV PRN (11:30)
[2024-04-27] MEDS ORDERED: BENZOCAINE/TETRACAINE/BUTAMBEN AERO SPRAY 56 GM CAN ONE (12:21)
[2024-04-27] MEDS ORDERED: FENTANYL CITRATE/PF 100MCG/2 ML INJ ONE (12:31)
[2024-04-27] MEDS ORDERED: LIDOCAINE HCL 2% LOCAL INJ 5 ML SDV VIAL INJ ONE (12:48)
[2024-04-27] MEDS ORDERED: PROPOFOL IV EMULSION 10 MG/ML 20 ML VIAL ONE (12:48)
[2024-04-27] MEDS: FENTANYL CITRATE/PF 100MCG/2 ML INJ IV ONE ×2 (13:56→14:04)
[2024-04-27] MEDS ORDERED: LIDOCAINE 4% PATCH TP PRN (15:30)
[2024-04-27] MEDS ORDERED: TRAMADOL HCL 50 MG TAB PO PRN (15:30)
[2024-04-27] MEDS: SUCRALFATE 1 GM TAB PO SCH (16:05)
[2024-04-27] MEDS: LEVOTHYROXINE SODIUM 25 MCG TABLET PO SCH (16:11)
[2024-04-27] MEDS: RIFAXIMIN 550 MG TABLET PO SCH (16:11)
[2024-04-27] MEDS: GABAPENTIN 300 MG CAP PO SCH (16:52)
[2024-04-27] MEDS: SODIUM CHLORIDE 1 GM TAB PO SCH (16:53)
[2024-04-27] MEDS: MUPIROCIN 2% OINT 22 GM TUBE TOP SCH (17:00)
[2024-04-27] MEDS: FENTANYL CITRATE/PF 100MCG/2 ML INJ ONE (19:34)
[2024-04-27] MEDS: ACETAMINOPHEN/CODEINE 300MG - 30MG TAB PO SCH (20:31)
[2024-04-28 03:35] VITALS: BP 119/82; PULSE 101; RESP 18; TEMP 98.7; O2SAT 99
[2024-04-28 06:26] LABS: BASOPHILS % 0.1 % (0.0-1.0); EOSINOPHILS # (AUTO) 0.3 (0.0-0.4); EOSINOPHILS % 2.2 % (0.0-6.0); HEMATOCRIT 27.1 % (38.2-49.6); HEMOGLOBIN 8.5 g/dL (14.0-18.0); LYMPHOCYTES # (AUTO) 0.4 (1.0-3.2); LYMPHOCYTES % 3.2 % (18.0-39.1); MEAN CORPUSCULAR HEMOGLOBIN 30.1 pg (28-32); MEAN CORPUSCULAR HGB CONC 31.4 g/dL (31-35); MEAN CORPUSCULAR VOLUME 96.1 fL (81-99); MONOCYTES # (AUTO) 1.3 (0.2-0.8); MONOCYTES % 9.8 % (4.4-11.3); NEUTROPHILS # (AUTO) 10.6 (2.1-6.9); PLATELET COUNT 187 x10e3/uL (140-360); RED BLOOD COUNT 2.82 x10e6/uL (4.3-5.7); RED CELL DISTRIBUTION WIDTH 17.2 % (11.7-14.4); WHITE BLOOD COUNT 12.73 x10e3/uL (4.8-10.8)
[2024-04-28 06:51] LABS: CALCIUM 8.5 mg/dL (8.4-10.2); CHOL/HDL RATIO 2.3 (3.9-4.7); CREATININE, SERUM 0.95 mg/dL (0.72-1.25); MAGNESIUM 1.8 MG/DL (1.3-2.1); PHOSPHORUS 2.9 MG/DL (2.3-4.7); TOTAL PROTEIN 6.1 g/dL (6.5-8.1)
[2024-04-28 07:19] LABS: FREE T4 (FREE THYROXINE) 1.16 ng/dL (0.8-1.8); THYROID STIMULATING HORMONE 5.61 uIU/mL (0.350-4.940)
[2024-04-28 07:27] VITALS: PULSE 98; RESP 22; O2SAT 98
[2024-04-28 08:30] VITALS: BP 129/82; PULSE 105; RESP 19; TEMP 98.1; O2SAT 100
[2024-04-28] MEDS: VITAMIN B COMPLEX PO SCH (09:00)
[2024-04-28] MEDS: MULTIVITAMINS/MINERALS TAB PO SCH (09:08)
[2024-04-28] MEDS: ACETAMINOPHEN 325 MG TAB PO PRN (09:10)
[2024-04-28] MEDS: FUROSEMIDE 40 MG TAB PO SCH (09:11)
[2024-04-28] MEDS: PREDNISONE 20 MG TAB PO SCH (09:11)
[2024-04-28] MEDS: SPIRONOLACTONE 25 MG TAB PO SCH (09:12)
[2024-04-28] MEDS: PANTOPRAZOLE SOD 40 MG TABEC PO SCH (09:13)
[2024-04-28] MEDS: CYANOCOBALAMIN 1,000 MCG TAB PO SCH (09:13)
[2024-04-28 09:14] VITALS: BP 129/82; PULSE 105; RESP 19; TEMP 98.1; O2SAT 100
[2024-04-28 11:49] VITALS: BP 116/70; PULSE 101; RESP 19; TEMP 98.1; O2SAT 100
[2024-04-28 16:10] VITALS: BP 131/80; PULSE 97; RESP 18; TEMP 98.2; O2SAT 97
[2024-04-28] MEDS ORDERED: CARAFATE1 GM PO (17:24)
[2024-04-28] MEDS ORDERED: NICODERM CQ1 EAC2 TOP (17:24)
== END 2024-04-28 18:34 | disposition home or self-care (01) | DRG 378 ==
LOC: ER 13:34 → ERHOLD 16:22 → MED/SURG3 20:30 → OBSVTOIN 04-28 07:58
PROVIDERS: ADMIT Internal Medicine; ATTEND Internal Medicine
PROC: 0W3P8ZZ Control Bleeding in Gastrointestinal Tract, Via Natural or Artificial Opening Endoscopic (ICD-10-PCS; principal; 2024-04-27 13:22)
DX: K26.4 Chronic or unspecified duodenal ulcer with hemorrhage (principal); E87.1 Hypo-osmolality and hyponatremia; K29.71 Gastritis, unspecified, with bleeding; K25.4 Chronic or unspecified gastric ulcer with hemorrhage; K70.30 Alcoholic cirrhosis of liver without ascites; K21.9 Gastro-esophageal reflux disease without esophagitis; I10 Essential (primary) hypertension; D63.8 Anemia in other chronic diseases classified elsewhere; E03.9 Hypothyroidism, unspecified; Z91.81 History of falling; Z79.52 Long term (current) use of systemic steroids; Z79.890 Hormone replacement therapy; Z98.1 Arthrodesis status; Z82.49 Family history of ischemic heart disease and other diseases of the circulatory system; Z87.891 Personal history of nicotine dependence
CPT/HCPCS: 36415; 43255; 80053; 80061; 80320; 83036; 83735; 84100; 84439; 84443; 85014; 85018; 85025; 85610; 85730; 86850; 86900; 94799; 99252; 99284; G0378; J2003; J2270; J2371; J2405; J2470; J7030; J7050; J7512

== ENCOUNTER → 2024-05-15 | Outpatient (REF) | payer BC, MEDICARE ==
[~2024-05-15] MED LIST changes: +ALBUMIN 25% 12.5GM 50ML 150 ML IV ONE; +CARAFATE1 GM PO; -GLYCOPYRROLATE INJ 0.2 MG/ML VIAL ONE; -PHENYLEPHRINE HCL 1% 10 MG/ML VIAL ONE
== END ==
LOC: US 09:15
PROVIDERS: ATTEND Internal Medicine Gastroenterology
DX: R18.8 Other ascites (principal)
CPT/HCPCS: 49083

== ENCOUNTER → 2024-05-27 | Outpatient (REF) | payer BC, MEDICARE ==
[~2024-05-27] MED LIST changes: +ALBUMIN 25% 12.5GM 50ML 50 ML IV ONE
== END ==
LOC: US 11:58
PROVIDERS: ATTEND Internal Medicine Gastroenterology
DX: R18.8 Other ascites (principal)
CPT/HCPCS: 49083; C1729

== ENCOUNTER → 2024-06-08 | Outpatient (REF) | payer BC, MEDICARE ==
[2024-06-08 14:34] LABS: BASOPHILS % 0.4 % (0.0-1.0); EOSINOPHILS # (AUTO) 0.3 (0.0-0.4); EOSINOPHILS % 3.7 % (0.0-6.0); HEMATOCRIT 28.3 % (38.2-49.6); HEMOGLOBIN 9.1 g/dL (14.0-18.0); LYMPHOCYTES # (AUTO) 0.5 (1.0-3.2); LYMPHOCYTES % 5.7 % (18.0-39.1); MEAN CORPUSCULAR HEMOGLOBIN 28.6 pg (28-32); MEAN CORPUSCULAR HGB CONC 32.2 g/dL (31-35); MONOCYTES # (AUTO) 0.8 (0.2-0.8); MONOCYTES % 8.5 % (4.4-11.3); NEUTROPHILS # (AUTO) 7.3 (2.1-6.9); PLATELET COUNT 202 x10e3/uL (140-360); RED BLOOD COUNT 3.18 x10e6/uL (4.3-5.7); RED CELL DISTRIBUTION WIDTH 16.9 % (11.7-14.4); WHITE BLOOD COUNT 8.98 x10e3/uL (4.8-10.8)
[2024-06-08 14:44] LABS: INR 1.06; PROTHROMBIN TIME 14.4 seconds (11.9-14.5)
[2024-06-08 14:45] LABS: PARTIAL THROMBOPLASTIN TIME 34.4 seconds (23.8-35.5)
[2024-06-08 14:51] LABS: ANION GAP 13.7 mmol/L (8-16); CREATININE, SERUM 0.89 mg/dL (0.72-1.25); POTASSIUM 4.7 mmol/L (3.5-5.1)
== END ==
LOC: US 14:07
PROVIDERS: ATTEND Internal Medicine Gastroenterology
DX: R18.8 Other ascites (principal)
CPT/HCPCS: 36415; 49083; 80048; 85025; 85610; 85730; C1729

== ENCOUNTER → 2024-06-24 | Outpatient (REF) | payer BC, MEDICARE ==
[~2024-06-24] MED LIST changes: +ALBUMIN 25% 12.5GM 50ML 100 ML IV ONE; -ALBUMIN 25% 12.5GM 50ML 150 ML IV ONE; -ALBUMIN 25% 12.5GM 50ML 50 ML IV ONE; +SILVADENE20 GM TOP
== END ==
LOC: US 13:18
PROVIDERS: ATTEND Internal Medicine Gastroenterology
DX: R18.8 Other ascites (principal)
CPT/HCPCS: 49083

== ENCOUNTER 2024-06-28 17:09 | Emergency (ER) | payer BC, MEDICARE ==
[~2024-06-28] VITALS: Ht 188 cm; Wt 79.4 kg
[2024-06-28 17:09] VITALS: TEMP 98.5
[~2024-06-28 17:09] MED LIST changes: -ALBUMIN 25% 12.5GM 50ML 100 ML IV ONE; -SILVADENE20 GM TOP
[2024-06-28] MEDS: HYDROCODONE/APAP 7.5MG-325MG 1 EA TAB PO ONE (18:10)
[2024-06-28] MEDS ORDERED: SILVADENE20 GM TOP (18:11)
[2024-06-28] MEDS: TETANUS/DIPHTHERIA TOX ADULT 0.5 ML SYR IM ONE (18:15)
[2024-06-28] MEDS: SILVER SULFADIAZINE 50GM CREAM TOP STA (18:32)
[2024-06-28 18:33] VITALS: PULSE 100; RESP 16; O2SAT 99
== END 2024-06-28 18:31 | disposition home or self-care (01) ==
LOC: ER 17:17
DX: T23.222A Burn of second degree of single left finger (nail) except thumb, initial encounter (principal); T21.22XA Burn of second degree of abdominal wall, initial encounter; T31.0 Burns involving less than 10% of body surface; X02.8XXA Other exposure to controlled fire in building or structure, initial encounter; Y93.G3 Activity, cooking and baking; Y92.89 Other specified places as the place of occurrence of the external cause; K74.60 Unspecified cirrhosis of liver; I10 Essential (primary) hypertension; G62.9 Polyneuropathy, unspecified; F17.210 Nicotine dependence, cigarettes, uncomplicated
CPT/HCPCS: 90471; 90714; 99284

== ENCOUNTER → 2024-07-09 | Outpatient (REF) | payer BC, MEDICARE ==
[~2024-07-09] MED LIST changes: +SILVADENE20 GM TOP
[2024-07-09 14:31] LABS: INR 0.99; PROTHROMBIN TIME 13.7 seconds (11.9-14.5)
== END ==
LOC: US 13:24
PROVIDERS: ATTEND Internal Medicine Gastroenterology
DX: R18.8 Other ascites (principal)
CPT/HCPCS: 36415; 49083; 85049; 85610; 85730

== ENCOUNTER 2024-07-20 19:26 | Observation (INO) | payer OTHER, MEDICARE ==
[~2024-07-20] VITALS: Ht 188 cm; Wt 79.4 kg
[2024-07-20 19:37] VITALS: TEMP 98.6
[2024-07-20 19:59] LABS: BASOPHILS % 0.1 % (0.0-1.0); EOSINOPHILS % 0.1 % (0.0-6.0); HEMATOCRIT 24.1 % (38.2-49.6); HEMOGLOBIN 7.6 g/dL (14.0-18.0); LYMPHOCYTES # (AUTO) 0.1 (1.0-3.2); LYMPHOCYTES % 0.8 % (18.0-39.1); MEAN CORPUSCULAR HEMOGLOBIN 27.2 pg (28-32); MEAN CORPUSCULAR HGB CONC 31.5 g/dL (31-35); MEAN CORPUSCULAR VOLUME 86.4 fL (81-99); MONOCYTES # (AUTO) 0.2 (0.2-0.8); MONOCYTES % 1.6 % (4.4-11.3); NEUTROPHILS % 93.7 % (38.7-80.0); PLATELET COUNT 193 x10e3/uL (140-360); RED BLOOD COUNT 2.79 x10e6/uL (4.3-5.7); RED CELL DISTRIBUTION WIDTH 17.2 % (11.7-14.4); WHITE BLOOD COUNT 11.79 x10e3/uL (4.8-10.8)
[2024-07-20 20:22] LABS: ANION GAP 15.4 mmol/L (8-16); BILIRUBIN,TOTAL 0.6 mg/dL (0.2-1.2); CALCIUM 8.6 mg/dL (8.4-10.2); CREATININE, SERUM 1.08 mg/dL (0.72-1.25); POTASSIUM 4.4 mmol/L (3.5-5.1); TOTAL PROTEIN 6.1 g/dL (6.5-8.1)
[2024-07-20] MEDS: SODIUM CHLORIDE 0.9% 1000ML 1,000 ML IV ONE (20:26)
[2024-07-21] VITALS (13 sets, daily range): BP systolic 110–135; BP diastolic 61–85; PULSE 78–96; RESP 17–19; TEMP 97.5–98.6; O2SAT 94–100
[2024-07-21] MEDS: ONDANSETRON HCL INJ 2MG/ML 2ML 2 MG/ML VIAL IV PRN (00:57)
[2024-07-21] MEDS: Morphine 4mg INJECTION 4 MG/ML INJ IV PRN (01:00)
[2024-07-21] MEDS: SODIUM CHLORIDE 0.9% 1000ML 1,000 ML IV ONE (02:35)
[2024-07-21] MEDS ORDERED: AMBIEN5 MG PO (06:34)
[2024-07-21 06:44] LABS: TROPONIN I 0.012 ng/mL (0-0.300)
[2024-07-21 08:09] LABS: TROPONIN I 0.01 ng/mL (0-0.300)
[2024-07-21] MEDS: SODIUM CHLORIDE 1 GM TAB PO SCH (09:40)
[2024-07-21 11:43] LABS: INR 1.17; PROTHROMBIN TIME 15.6 seconds (11.9-14.5)
[2024-07-21] MEDS ORDERED: ALBUMIN 25% 12.5GM 50ML 0 ML IV ONE (12:01)
[2024-07-21 14:01] LABS: BASOPHILS % 0.1 % (0.0-1.0); EOSINOPHILS % 0.1 % (0.0-6.0); HEMATOCRIT 22.4 % (38.2-49.6); LYMPHOCYTES # (AUTO) 0.1 (1.0-3.2); LYMPHOCYTES % 1.4 % (18.0-39.1); MEAN CORPUSCULAR HEMOGLOBIN 27.1 pg (28-32); MEAN CORPUSCULAR HGB CONC 31.3 g/dL (31-35); MEAN CORPUSCULAR VOLUME 86.8 fL (81-99); MONOCYTES # (AUTO) 0.7 (0.2-0.8); MONOCYTES % 6.5 % (4.4-11.3); NEUTROPHILS # (AUTO) 8.9 (2.1-6.9); NEUTROPHILS % 89.7 % (38.7-80.0); PLATELET COUNT 190 x10e3/uL (140-360); RED BLOOD COUNT 2.58 x10e6/uL (4.3-5.7); RED CELL DISTRIBUTION WIDTH 17.4 % (11.7-14.4); WHITE BLOOD COUNT 9.94 x10e3/uL (4.8-10.8)
[2024-07-21 14:27] LABS: ANION GAP 12.3 mmol/L (8-16); CALCIUM 8.3 mg/dL (8.4-10.2); CREATININE, SERUM 0.89 mg/dL (0.72-1.25); POTASSIUM 4.3 mmol/L (3.5-5.1)
[2024-07-21 14:34] LABS: TROPONIN I 0.009 ng/mL (0-0.300)
[2024-07-21] MEDS ORDERED: ZOLPIDEM TARTRATE 5 MG TAB PO PRN (17:45)
[2024-07-21] MEDS: PANTOPRAZOLE SOD 40 MG TABEC PO SCH (18:30)
[2024-07-21] MEDS: GABAPENTIN 300 MG CAP PO SCH (22:27)
[2024-07-21] MEDS: SUCRALFATE 1 GM TAB PO SCH (22:27)
[2024-07-21] MEDS: ZOLPIDEM TARTRATE 5 MG TAB PO PRN (22:27)
[2024-07-22 03:39] VITALS: BP 112/99; PULSE 79; RESP 18; TEMP 98.1; O2SAT 100
[2024-07-22 06:02] LABS: BASOPHILS % 0.1 % (0.0-1.0); EOSINOPHILS % 0.3 % (0.0-6.0); HEMATOCRIT 23.6 % (38.2-49.6); HEMOGLOBIN 7.2 g/dL (14.0-18.0); LYMPHOCYTES # (AUTO) 0.2 (1.0-3.2); LYMPHOCYTES % 1.8 % (18.0-39.1); MEAN CORPUSCULAR HEMOGLOBIN 27.1 pg (28-32); MEAN CORPUSCULAR HGB CONC 30.5 g/dL (31-35); MEAN CORPUSCULAR VOLUME 88.7 fL (81-99); MONOCYTES # (AUTO) 0.9 (0.2-0.8); NEUTROPHILS # (AUTO) 8.9 (2.1-6.9); NEUTROPHILS % 86.9 % (38.7-80.0); PLATELET COUNT 140 x10e3/uL (140-360); RED BLOOD COUNT 2.66 x10e6/uL (4.3-5.7); WHITE BLOOD COUNT 10.26 x10e3/uL (4.8-10.8)
[2024-07-22] MEDS: LEVOTHYROXINE SODIUM 25 MCG TABLET PO SCH (06:31)
[2024-07-22 06:46] LABS: ALBUMIN 2.7 g/dL (3.5-5.0); BILIRUBIN,TOTAL 0.5 mg/dL (0.2-1.2); CALCIUM 8.4 mg/dL (8.4-10.2); CREATININE, SERUM 0.85 mg/dL (0.72-1.25); TOTAL PROTEIN 5.4 g/dL (6.5-8.1)
[2024-07-22 07:41] VITALS: BP 127/75; PULSE 83; RESP 16; TEMP 97.1; O2SAT 100
[2024-07-22] MEDS: CYANOCOBALAMIN 1,000 MCG TAB PO SCH (08:57)
[2024-07-22] MEDS: SODIUM CHLORIDE 1 GM TAB PO SCH (08:57)
[2024-07-22] MEDS: SPIRONOLACTONE 25 MG TAB PO SCH (08:58)
[2024-07-22] MEDS: MULTIVITAMINS/MINERALS TAB PO SCH (08:58)
[2024-07-22] MEDS: NICOTINE 21 MG/EA PATCH TOP SCH (08:58)
[2024-07-22] MEDS: PROPRANOLOL HCL 10 MG TAB PO SCH (08:58)
[2024-07-22] MEDS: VITAMIN B COMPLEX PO SCH (09:00)
[2024-07-22] MEDS ORDERED: PROMETHAZINE HCL 25 MG TAB PO PRN (09:00)
[2024-07-22] MEDS ORDERED: PROMETHAZINE HCL 25 MG TAB PO SCH (09:00)
[2024-07-22] MEDS ORDERED: PANTOPRAZOLE SOD 40 MG TABEC PO SCH (09:00)
[2024-07-22] MEDS: FUROSEMIDE 40 MG TAB PO SCH (09:04)
[2024-07-22 09:16] VITALS: BP 127/75; PULSE 83; RESP 16; TEMP 97.1; O2SAT 100
[2024-07-22 11:22] VITALS: BP 119/82; PULSE 89; RESP 19; TEMP 98.3; O2SAT 99
== END 2024-07-22 14:45 | disposition home or self-care (01) ==
LOC: ER 19:39 → ERHOLD 07-21 00:07 → MED/SURG3 07-21 01:23
PROVIDERS: ADMIT Internal Medicine; ATTEND Internal Medicine
DX: S61.511A Laceration without foreign body of right wrist, initial encounter (principal); S52.514A Nondisplaced fracture of right radial styloid process, initial encounter for closed fracture; S61.411A Laceration without foreign body of right hand, initial encounter; S51.811A Laceration without foreign body of right forearm, initial encounter; S51.812A Laceration without foreign body of left forearm, initial encounter; S00.83XA Contusion of other part of head, initial encounter; S00.81XA Abrasion of other part of head, initial encounter; S51.012A Laceration without foreign body of left elbow, initial encounter; W01.0XXA Fall on same level from slipping, tripping and stumbling without subsequent striking against object, initial encounter; Y92.009 Unspecified place in unspecified non-institutional (private) residence as the place of occurrence of the external cause; K70.31 Alcoholic cirrhosis of liver with ascites; D63.8 Anemia in other chronic diseases classified elsewhere; F10.11 Alcohol abuse, in remission; F10.21 Alcohol dependence, in remission; E87.1 Hypo-osmolality and hyponatremia; I10 Essential (primary) hypertension; F17.200 Nicotine dependence, unspecified, uncomplicated; Z79.899 Other long term (current) drug therapy
CPT/HCPCS: 29125; 36415 ×3; 49083; 70450; 70486; 71045; 72125; 73110; 73130; 80048; 80053 ×2; 82550; 84484; 85025 ×3; 85610; 93005; 94799; 97110; 97116; 97161; 97530; 99252 ×2; 99284; C1729; G0378 ×2; J2270 ×2; J2405 ×2; J7030 ×2; S0164 ×2

== ENCOUNTER → 2024-07-30 | Outpatient (REF) | payer BC, MEDICARE ==
[~2024-07-30] MED LIST changes: +AMBIEN5 MG PO; +COLLAGENASE OINTMENT 30 GM TUBE ONE; +LIDOCAINE VISC 2% SOLN 15 ML UDC ONE; +MUPIROCIN 2% OINT 22 GM TUBE ONE
== END ==
LOC: WCC 14:25
PROVIDERS: ATTEND Internal Medicine Infectious Disease
DX: S51.801D Unspecified open wound of right forearm, subsequent encounter (principal); S81.002D Unspecified open wound, left knee, subsequent encounter; T21.22XD Burn of second degree of abdominal wall, subsequent encounter

== ENCOUNTER → 2024-08-05 | Outpatient (REF) | payer OTHER, MEDICARE ==
[~2024-08-05] MED LIST changes: +ALBUMIN 25% 12.5GM 50ML 0 ML IV ONE; -COLLAGENASE OINTMENT 30 GM TUBE ONE; -LIDOCAINE VISC 2% SOLN 15 ML UDC ONE; -MUPIROCIN 2% OINT 22 GM TUBE ONE
== END ==
LOC: US 13:10
PROVIDERS: ATTEND Internal Medicine Gastroenterology
DX: R18.8 Other ascites (principal)
CPT/HCPCS: 49083

== ENCOUNTER 2024-08-15 21:08 | Inpatient (IN) | payer OTHER, MEDICARE ==
[~2024-08-15] VITALS: Ht 188 cm; Wt 77.1 kg
[~2024-08-15 21:08] MED LIST changes: -ALBUMIN 25% 12.5GM 50ML 0 ML IV ONE
[2024-08-15 21:27] VITALS: TEMP 98.9
[2024-08-15 21:49] LABS: BASOPHILS % 0.1 % (0.0-1.0); EOSINOPHILS # (AUTO) 0.4 (0.0-0.4); EOSINOPHILS % 4.2 % (0.0-6.0); HEMATOCRIT 26.3 % (38.2-49.6); HEMOGLOBIN 8.3 g/dL (14.0-18.0); LYMPHOCYTES # (AUTO) 0.4 (1.0-3.2); LYMPHOCYTES % 4.5 % (18.0-39.1); MEAN CORPUSCULAR HGB CONC 31.6 g/dL (31-35); MEAN CORPUSCULAR VOLUME 82.4 fL (81-99); MONOCYTES % 9.9 % (4.4-11.3); NEUTROPHILS # (AUTO) 7.9 (2.1-6.9); NEUTROPHILS % 79.5 % (38.7-80.0); PLATELET COUNT 252 x10e3/uL (140-360); RED BLOOD COUNT 3.19 x10e6/uL (4.3-5.7); RED CELL DISTRIBUTION WIDTH 18.5 % (11.7-14.4); WHITE BLOOD COUNT 9.87 x10e3/uL (4.8-10.8)
[2024-08-15 22:15] VITALS: PULSE 90; RESP 16
[2024-08-15 22:15] LABS: ALBUMIN 2.9 g/dL (3.5-5.0); ALBUMIN/GLOBULIN RATIO 0.9 (0.8-2.0); ANION GAP 15.5 mmol/L (8-16); BILIRUBIN,TOTAL 0.6 mg/dL (0.2-1.2); CALCIUM 8.9 mg/dL (8.4-10.2); CREATININE, SERUM 0.81 mg/dL (0.72-1.25); POTASSIUM 4.5 mmol/L (3.5-5.1); TOTAL PROTEIN 6.3 g/dL (6.5-8.1)
[2024-08-16] VITALS (12 sets, daily range): BP systolic 108–133; BP diastolic 74–87; PULSE 86–99; RESP 16–20; TEMP 96.4–98.2; O2SAT 93–100
[2024-08-16] MEDS ORDERED: ONDANSETRON HCL INJ 2MG/ML 2ML 2 MG/ML VIAL IV PRN
[2024-08-16] MEDS ORDERED: SODIUM CHLORIDE FLUSH 10 ML SYR INJ PRN
[2024-08-16] MEDS: Morphine 2mg Syringe 2 MG/ML SYR IV PRN (02:05)
[2024-08-16] MEDS ORDERED: LACTULOSE10 GM/151 PO (05:25)
[2024-08-16] MEDS: SODIUM CHLORIDE 1 GM TAB PO SCH (09:02)
[2024-08-16 09:59] LABS: BASOPHILS % 0.1 % (0.0-1.0); EOSINOPHILS # (AUTO) 0.3 (0.0-0.4); EOSINOPHILS % 3.9 % (0.0-6.0); HEMATOCRIT 25.1 % (38.2-49.6); LYMPHOCYTES # (AUTO) 0.4 (1.0-3.2); LYMPHOCYTES % 4.6 % (18.0-39.1); MEAN CORPUSCULAR HEMOGLOBIN 26.1 pg (28-32); MEAN CORPUSCULAR HGB CONC 31.9 g/dL (31-35); MEAN CORPUSCULAR VOLUME 81.8 fL (81-99); MONOCYTES # (AUTO) 0.8 (0.2-0.8); MONOCYTES % 9.4 % (4.4-11.3); NEUTROPHILS # (AUTO) 6.4 (2.1-6.9); NEUTROPHILS % 80.5 % (38.7-80.0); PLATELET COUNT 226 x10e3/uL (140-360); RED BLOOD COUNT 3.07 x10e6/uL (4.3-5.7); RED CELL DISTRIBUTION WIDTH 18.6 % (11.7-14.4); WHITE BLOOD COUNT 7.96 x10e3/uL (4.8-10.8)
[2024-08-16 10:04] LABS: ALBUMIN 2.8 g/dL (3.5-5.0); ALBUMIN/GLOBULIN RATIO 0.9 (0.8-2.0); ANION GAP 14.9 mmol/L (8-16); BILIRUBIN,TOTAL 0.6 mg/dL (0.2-1.2); CALCIUM 8.9 mg/dL (8.4-10.2); CREATININE, SERUM 0.78 mg/dL (0.72-1.25); POTASSIUM 3.9 mmol/L (3.5-5.1)
[2024-08-16] MEDS: ONDANSETRON HCL INJ 2MG/ML 2ML 2 MG/ML VIAL IV PRN (10:24)
[2024-08-16] MEDS ORDERED: RIFAXIMIN 550 MG TABLET PO SCH (15:00)
[2024-08-16] MEDS ORDERED: GABAPENTIN 300 MG CAP PO SCH ×2 (15:00→21:00)
[2024-08-16] MEDS: GABAPENTIN 300 MG CAP PO SCH (17:12)
[2024-08-16] MEDS: RIFAXIMIN 550 MG TABLET PO SCH (20:52)
[2024-08-17] VITALS (10 sets, daily range): BP systolic 110–130; BP diastolic 75–84; PULSE 59–102; RESP 17–19; TEMP 97.1–98.3; O2SAT 95–100
[2024-08-17] MEDS: LEVOTHYROXINE SODIUM 25 MCG TABLET PO SCH (05:19)
[2024-08-17 06:04] LABS: BASOPHILS % 0.1 % (0.0-1.0); EOSINOPHILS # (AUTO) 0.2 (0.0-0.4); EOSINOPHILS % 2.4 % (0.0-6.0); HEMATOCRIT 24.6 % (38.2-49.6); HEMOGLOBIN 7.8 g/dL (14.0-18.0); LYMPHOCYTES # (AUTO) 0.4 (1.0-3.2); LYMPHOCYTES % 4.7 % (18.0-39.1); MEAN CORPUSCULAR HEMOGLOBIN 26.1 pg (28-32); MEAN CORPUSCULAR HGB CONC 31.7 g/dL (31-35); MEAN CORPUSCULAR VOLUME 82.3 fL (81-99); MONOCYTES # (AUTO) 0.8 (0.2-0.8); MONOCYTES % 9.8 % (4.4-11.3); NEUTROPHILS # (AUTO) 6.4 (2.1-6.9); NEUTROPHILS % 81.5 % (38.7-80.0); PLATELET COUNT 218 x10e3/uL (140-360); RED BLOOD COUNT 2.99 x10e6/uL (4.3-5.7); RED CELL DISTRIBUTION WIDTH 18.7 % (11.7-14.4); WHITE BLOOD COUNT 7.86 x10e3/uL (4.8-10.8)
[2024-08-17 06:40] LABS: ANION GAP 13.4 mmol/L (8-16); CALCIUM 8.4 mg/dL (8.4-10.2); CREATININE, SERUM 0.79 mg/dL (0.72-1.25); POTASSIUM 4.4 mmol/L (3.5-5.1)
[2024-08-17] MEDS: PANTOPRAZOLE SOD 40 MG TABEC PO SCH (08:41)
[2024-08-17] MEDS: SPIRONOLACTONE 25 MG TAB PO SCH (08:41)
[2024-08-17] MEDS: MULTIVITAMINS/MINERALS TAB PO SCH (08:42)
[2024-08-17] MEDS: FUROSEMIDE 20 MG TAB PO SCH (08:43)
[2024-08-17] MEDS: CYANOCOBALAMIN 1,000 MCG TAB PO SCH (09:00)
[2024-08-17] MEDS: SODIUM CHLORIDE 1 GM TAB ONE (20:30)
[2024-08-18 03:23] VITALS: BP 129/87; PULSE 95; RESP 18; TEMP 97.6; O2SAT 100
[2024-08-18] MEDS: SPIRONOLACTONE 25 MG TAB PO SCH (07:33)
[2024-08-18 07:38] LABS: INR 1.04; PROTHROMBIN TIME 14.2 seconds (11.9-14.5)
[2024-08-18 07:43] LABS: ANION GAP 10.9 mmol/L (8-16); CREATININE, SERUM 0.75 mg/dL (0.72-1.25); POTASSIUM 3.9 mmol/L (3.5-5.1)
[2024-08-18 07:44] LABS: % IRON SATURATION 5 % (15-50); IRON 17 ug/dL (65-175); TOTAL IRON BINDING CAPACITY 322 ug/dL (261-478); TRANSFERRIN 230 mg/dL (174-364)
[2024-08-18 08:00] VITALS: BP 142/88; PULSE 100; RESP 18; TEMP 98; O2SAT 100
[2024-08-18 08:16] VITALS: BP 142/88; PULSE 100; RESP 18; TEMP 98; O2SAT 100
[2024-08-18 08:18] LABS: FOLATE 14.6 ng/mL (7.0-15.4)
[2024-08-18 08:58] LABS: BASOPHILS % 0.1 % (0.0-1.0); EOSINOPHILS # (AUTO) 0.2 (0.0-0.4); EOSINOPHILS % 2.3 % (0.0-6.0); LYMPHOCYTES # (AUTO) 0.3 (1.0-3.2); MEAN CORPUSCULAR HEMOGLOBIN 26.1 pg (28-32); MEAN CORPUSCULAR HGB CONC 31.7 g/dL (31-35); MEAN CORPUSCULAR VOLUME 82.2 fL (81-99); MONOCYTES # (AUTO) 0.9 (0.2-0.8); MONOCYTES % 10.6 % (4.4-11.3); NEUTROPHILS # (AUTO) 6.9 (2.1-6.9); NEUTROPHILS % 81.7 % (38.7-80.0); PLATELET COUNT 179 x10e3/uL (140-360); RED BLOOD COUNT 2.76 x10e6/uL (4.3-5.7); RED CELL DISTRIBUTION WIDTH 18.6 % (11.7-14.4); WHITE BLOOD COUNT 8.43 x10e3/uL (4.8-10.8)
[2024-08-18] MEDS ORDERED: SPIRONOLACTONE 25 MG TAB PO SCH (09:00)
[2024-08-18 09:02] LABS: HEMATOCRIT 22.7 % (38.2-49.6); HEMOGLOBIN 7.2 g/dL (14.0-18.0)
[2024-08-18] MEDS ORDERED: ALBUMIN 25% 12.5GM 50ML 200 ML IV ONE (12:15)
[2024-08-18 17:25] VITALS: BP 107/75; PULSE 50; RESP 18; TEMP 98.5
[2024-08-18 21:08] VITALS: BP 124/81; PULSE 106; RESP 21; TEMP 98.2; O2SAT 100
[2024-08-18 21:10] VITALS: BP 124/81; PULSE 106; RESP 21; TEMP 98.2; O2SAT 100
[2024-08-18] MEDS: SODIUM FERRIC GLUCONATE COMPLX 125 MG in SODIUM CHLORIDE 0.9% 100 ML IV SCH (21:31)
[2024-08-18] MEDS: SODIUM CHLORIDE 0.9% 250ML 250 ML ONE (21:39)
[2024-08-19] VITALS (11 sets, daily range): BP systolic 97–132; BP diastolic 53–91; PULSE 77–117; RESP 17–21; TEMP 97.8–98.5; O2SAT 99–100
[2024-08-19 06:36] LABS: BASOPHILS % 0.3 % (0.0-1.0); EOSINOPHILS # (AUTO) 0.2 (0.0-0.4); EOSINOPHILS % 1.9 % (0.0-6.0); LYMPHOCYTES # (AUTO) 0.4 (1.0-3.2); LYMPHOCYTES % 4.6 % (18.0-39.1); MEAN CORPUSCULAR HEMOGLOBIN 25.8 pg (28-32); MEAN CORPUSCULAR HGB CONC 31.6 g/dL (31-35); MEAN CORPUSCULAR VOLUME 81.6 fL (81-99); MONOCYTES # (AUTO) 0.8 (0.2-0.8); MONOCYTES % 9.9 % (4.4-11.3); NEUTROPHILS # (AUTO) 6.6 (2.1-6.9); PLATELET COUNT 193 x10e3/uL (140-360); RED BLOOD COUNT 2.56 x10e6/uL (4.3-5.7); RED CELL DISTRIBUTION WIDTH 18.7 % (11.7-14.4); WHITE BLOOD COUNT 7.98 x10e3/uL (4.8-10.8)
[2024-08-19 06:42] LABS: HEMATOCRIT 20.9 % (38.2-49.6); HEMOGLOBIN 6.6 g/dL (14.0-18.0)
[2024-08-19 07:03] LABS: CALCIUM 8.4 mg/dL (8.4-10.2); CREATININE, SERUM 0.7 mg/dL (0.72-1.25)
[2024-08-20] VITALS: BP 119/82; PULSE 102; RESP 19; TEMP 97.6; O2SAT 100
[2024-08-20 06:47] LABS: BASOPHILS % 0.2 % (0.0-1.0); EOSINOPHILS # (AUTO) 0.2 (0.0-0.4); EOSINOPHILS % 1.5 % (0.0-6.0); HEMATOCRIT 28.6 % (38.2-49.6); HEMOGLOBIN 9.5 g/dL (14.0-18.0); LYMPHOCYTES # (AUTO) 0.5 (1.0-3.2); LYMPHOCYTES % 5.3 % (18.0-39.1); MEAN CORPUSCULAR HEMOGLOBIN 27.3 pg (28-32); MEAN CORPUSCULAR HGB CONC 33.2 g/dL (31-35); MEAN CORPUSCULAR VOLUME 82.2 fL (81-99); MONOCYTES # (AUTO) 1.2 (0.2-0.8); MONOCYTES % 12.3 % (4.4-11.3); NEUTROPHILS # (AUTO) 7.5 (2.1-6.9); NEUTROPHILS % 77.5 % (38.7-80.0); PLATELET COUNT 176 x10e3/uL (140-360); RED BLOOD COUNT 3.48 x10e6/uL (4.3-5.7); RED CELL DISTRIBUTION WIDTH 18.3 % (11.7-14.4); WHITE BLOOD COUNT 9.72 x10e3/uL (4.8-10.8)
[2024-08-20 07:04] LABS: ANION GAP 11.9 mmol/L (8-16); CALCIUM 8.3 mg/dL (8.4-10.2); CREATININE, SERUM 0.71 mg/dL (0.72-1.25); POTASSIUM 3.9 mmol/L (3.5-5.1)
[2024-08-20 07:26] LABS: THYROID STIMULATING HORMONE 1.783 uIU/mL (0.350-4.940)
[2024-08-20 08:00] VITALS: BP 111/91; PULSE 54; RESP 16; TEMP 97.7; O2SAT 95
[2024-08-20 09:00] VITALS: BP 111/91; PULSE 54; RESP 16; TEMP 97.7; O2SAT 95
[2024-08-20 12:00] VITALS: BP 120/82; PULSE 104; RESP 18; TEMP 97.8; O2SAT 100
[2024-08-20 16:00] VITALS: BP 122/65; PULSE 100; RESP 18; TEMP 97.8; O2SAT 100
[2024-08-20] MEDS: SUCRALFATE 1 GM TAB PO SCH (16:30)
[2024-08-20 20:00] VITALS: BP 124/66; PULSE 52; RESP 18; TEMP 97.7; O2SAT 100
[2024-08-20] MEDS: ZOLPIDEM TARTRATE 10 MG TAB PO SCH (20:34)
[2024-08-21] VITALS (8 sets, daily range): BP systolic 99–119; BP diastolic 60–89; PULSE 83–115; RESP 16–21; TEMP 96.4–98.2; O2SAT 98–100
[2024-08-21 06:42] LABS: BASOPHILS % 0.3 % (0.0-1.0); EOSINOPHILS # (AUTO) 0.1 (0.0-0.4); EOSINOPHILS % 1.4 % (0.0-6.0); HEMATOCRIT 27.9 % (38.2-49.6); HEMOGLOBIN 8.9 g/dL (14.0-18.0); LYMPHOCYTES # (AUTO) 0.4 (1.0-3.2); LYMPHOCYTES % 4.4 % (18.0-39.1); MEAN CORPUSCULAR HGB CONC 31.9 g/dL (31-35); MEAN CORPUSCULAR VOLUME 81.6 fL (81-99); MONOCYTES # (AUTO) 0.9 (0.2-0.8); MONOCYTES % 11.5 % (4.4-11.3); NEUTROPHILS # (AUTO) 6.4 (2.1-6.9); NEUTROPHILS % 80.1 % (38.7-80.0); PLATELET COUNT 170 x10e3/uL (140-360); RED BLOOD COUNT 3.42 x10e6/uL (4.3-5.7); RED CELL DISTRIBUTION WIDTH 18.3 % (11.7-14.4); WHITE BLOOD COUNT 7.99 x10e3/uL (4.8-10.8)
[2024-08-21 07:02] LABS: ANION GAP 13.1 mmol/L (8-16); CALCIUM 8.6 mg/dL (8.4-10.2); CREATININE, SERUM 0.72 mg/dL (0.72-1.25); POTASSIUM 4.1 mmol/L (3.5-5.1)
[2024-08-21] MEDS: LIDOCAINE 4% PATCH TP SCH (08:23)
[2024-08-21] MEDS ORDERED: LIDOCAINE HCL 2% LOCAL INJ 5 ML SDV VIAL INJ ONE (15:06)
[2024-08-21] MEDS ORDERED: PROPOFOL IV EMULSION 10 MG/ML 20 ML VIAL ONE (15:07)
[2024-08-22 00:20] VITALS: BP 111/75; PULSE 100; RESP 18; TEMP 97.3; O2SAT 99
[2024-08-22 04:20] VITALS: BP 113/83; PULSE 107; RESP 17; TEMP 98.6; O2SAT 97
[2024-08-22 08:00] VITALS: BP 118/83; PULSE 99; RESP 18; TEMP 98; O2SAT 100
[2024-08-22 08:40] VITALS: BP 118/83; PULSE 99; RESP 16; TEMP 97.8; O2SAT 100
[2024-08-22] MEDS: SODIUM CHLORIDE 0.9% 250ML 250 ML ONE ×2 (09:59→10:00)
[2024-08-22] MEDS: SODIUM CHLORIDE 0.9% 250ML 250 ML IV ONE (10:00)
[2024-08-22 12:00] VITALS: BP 88/71; PULSE 108; RESP 18; TEMP 97.8; O2SAT 100
[2024-08-22 16:00] VITALS: BP 127/82; PULSE 114; RESP 18; TEMP 98; O2SAT 100
== END 2024-08-22 18:05 | disposition home or self-care (01) | DRG 433 ==
LOC: ER 21:35 → ERHOLD 23:51 → MED/SURG3 08-16 01:12
PROVIDERS: ADMIT Internal Medicine; ATTEND Internal Medicine
PROC: 0W9G3ZZ Drainage of Peritoneal Cavity, Percutaneous Approach (ICD-10-PCS; 2024-08-18)
PROC: 30233N1 Transfusion of Nonautologous Red Blood Cells into Peripheral Vein, Percutaneous Approach (ICD-10-PCS; 2024-08-19)
PROC: 0DB Gastrointestinal System, Excision (ICD-10-PCS; principal; 2024-08-21 15:59)
DX: K70.31 Alcoholic cirrhosis of liver with ascites (principal); E44.0 Moderate protein-calorie malnutrition; E87.1 Hypo-osmolality and hyponatremia; K76.6 Portal hypertension; D63.8 Anemia in other chronic diseases classified elsewhere; K31.89 Other diseases of stomach and duodenum; I10 Essential (primary) hypertension; K21.9 Gastro-esophageal reflux disease without esophagitis; E03.9 Hypothyroidism, unspecified; R53.81 Other malaise; Z68.21 Body mass index [BMI] 21.0-21.9, adult; Z91.81 History of falling; Z79.890 Hormone replacement therapy; Z98.1 Arthrodesis status; Z88.5 Allergy status to narcotic agent
CPT/HCPCS: 36415; 36568; 43239; 49083; 70450; 74470; 80048; 80053; 82140; 82607; 82746; 83540; 84443; 84466; 85025; 85610; 86850; 86900; 86920; 88305; 88342; 93005; 94799; 99252; 99284; C1729; J2003; J2270; J2405; J2916; J7050; P9016

== ENCOUNTER → 2024-08-31 | Outpatient (REF) | payer OTHER, MEDICARE ==
[~2024-08-31] MED LIST changes: +ALBUMIN 25% 12.5GM 50ML 200 ML IV ONE; +LACTULOSE10 GM/151 PO; +SODIUM CHLORI1000 MG PO
[2024-08-31 11:32] LABS: BASOPHILS # (AUTO) 0.1 (0.0-0.1); BASOPHILS % 0.5 % (0.0-1.0); EOSINOPHILS # (AUTO) 0.3 (0.0-0.4); HEMOGLOBIN 10.8 g/dL (14.0-18.0); LYMPHOCYTES # (AUTO) 0.5 (1.0-3.2); LYMPHOCYTES % 5.5 % (18.0-39.1); MEAN CORPUSCULAR HEMOGLOBIN 27.4 pg (28-32); MEAN CORPUSCULAR HGB CONC 32.7 g/dL (31-35); MEAN CORPUSCULAR VOLUME 83.8 fL (81-99); MONOCYTES # (AUTO) 0.9 (0.2-0.8); MONOCYTES % 8.9 % (4.4-11.3); NEUTROPHILS # (AUTO) 7.5 (2.1-6.9); NEUTROPHILS % 78.3 % (38.7-80.0); PLATELET COUNT 207 x10e3/uL (140-360); RED BLOOD COUNT 3.94 x10e6/uL (4.3-5.7); RED CELL DISTRIBUTION WIDTH 21.5 % (11.7-14.4); WHITE BLOOD COUNT 9.55 x10e3/uL (4.8-10.8)
[2024-08-31 11:47] LABS: INR 1.04; PROTHROMBIN TIME 14.2 seconds (11.9-14.5)
[2024-08-31 11:48] LABS: PARTIAL THROMBOPLASTIN TIME 33.9 seconds (23.8-35.5)
[2024-08-31 11:55] LABS: ALBUMIN 2.9 g/dL (3.5-5.0); ALBUMIN/GLOBULIN RATIO 0.8 (0.8-2.0); ANION GAP 11.5 mmol/L (8-16); CREATININE, SERUM 1.13 mg/dL (0.72-1.25); POTASSIUM 4.5 mmol/L (3.5-5.1); TOTAL PROTEIN 6.4 g/dL (6.5-8.1)
[2024-08-31 12:42] LABS: ANISOCYTOSIS MODERATE; HYPOCHROMASIA MODERATE; OVALOCYTES FEW; PLATELET ESTIMATE ADEQUATE; PLATELET MORPHOLOGY COMMENT FEW LARGE; RBC MORPHOLOGY COMMENT ABNORMAL
== END ==
LOC: US 11:08
PROVIDERS: ATTEND Internal Medicine Gastroenterology
DX: R18.8 Other ascites (principal)
CPT/HCPCS: 36415; 49083; 80053; 85025; 85610; 85730; C1729

== ENCOUNTER 2024-09-02 14:46 | Emergency (ER) | payer OTHER, MEDICARE ==
[~2024-09-02] VITALS: Ht 188 cm; Wt 77.1 kg
[~2024-09-02 14:46] MED LIST changes: -ALBUMIN 25% 12.5GM 50ML 200 ML IV ONE; -SODIUM CHLORI1000 MG PO
[2024-09-02 15:00] VITALS: TEMP 97.9
[2024-09-02 15:37] LABS: BASOPHILS # (AUTO) 0.1 (0.0-0.1); BASOPHILS % 0.5 % (0.0-1.0); EOSINOPHILS # (AUTO) 0.3 (0.0-0.4); EOSINOPHILS % 2.3 % (0.0-6.0); HEMATOCRIT 30.5 % (38.2-49.6); HEMOGLOBIN 9.9 g/dL (14.0-18.0); LYMPHOCYTES # (AUTO) 0.4 (1.0-3.2); LYMPHOCYTES % 3.9 % (18.0-39.1); MEAN CORPUSCULAR HEMOGLOBIN 27.4 pg (28-32); MEAN CORPUSCULAR HGB CONC 32.5 g/dL (31-35); MEAN CORPUSCULAR VOLUME 84.5 fL (81-99); MONOCYTES % 8.8 % (4.4-11.3); NEUTROPHILS # (AUTO) 9.3 (2.1-6.9); NEUTROPHILS % 81.9 % (38.7-80.0); PLATELET COUNT 179 x10e3/uL (140-360); RED BLOOD COUNT 3.61 x10e6/uL (4.3-5.7); RED CELL DISTRIBUTION WIDTH 22.1 % (11.7-14.4); WHITE BLOOD COUNT 11.33 x10e3/uL (4.8-10.8)
[2024-09-02] MEDS: ONDANSETRON HCL INJ 2MG/ML 2ML 2 MG/ML VIAL IV STA (16:19)
[2024-09-02 16:20] VITALS: PULSE 87; RESP 18
[2024-09-02 16:25] LABS: INR 1.13; PROTHROMBIN TIME 15.2 seconds (11.9-14.5)
[2024-09-02 16:26] LABS: PARTIAL THROMBOPLASTIN TIME 33.6 seconds (23.8-35.5)
[2024-09-02 16:34] LABS: ALBUMIN 2.7 g/dL (3.5-5.0); ALBUMIN/GLOBULIN RATIO 1.1 (0.8-2.0); ANION GAP 13.3 mmol/L (8-16); BILIRUBIN,TOTAL 0.8 mg/dL (0.2-1.2); CALCIUM 8.6 mg/dL (8.4-10.2); CREATININE, SERUM 0.83 mg/dL (0.72-1.25); POTASSIUM 4.3 mmol/L (3.5-5.1); TOTAL PROTEIN 5.2 g/dL (6.5-8.1)
[2024-09-02] MEDS ORDERED: SODIUM CHLORI1000 MG PO (17:08)
[2024-09-02] MEDS ORDERED: ONDANSETRON ODT4 MG PO (17:08)
[2024-09-02 17:42] VITALS: BP 117/69; PULSE 79; RESP 18; TEMP 97.2; O2SAT 97
== END 2024-09-02 17:43 | disposition home or self-care (01) ==
LOC: ER 15:18
DX: E87.1 Hypo-osmolality and hyponatremia (principal); K74.60 Unspecified cirrhosis of liver; R11.0 Nausea; I10 Essential (primary) hypertension; R94.31 Abnormal electrocardiogram [ECG] [EKG]
CPT/HCPCS: 36415; 80053; 85025; 85610; 85730; 93005; 99284; J2405

== ENCOUNTER → 2024-09-10 | Outpatient (REF) | payer OTHER, MEDICARE ==
[~2024-09-10] MED LIST changes: +ALBUMIN 25% 12.5GM 50ML 200 ML IV ONE; +SODIUM CHLORI1000 MG PO
[2024-09-10 12:14] LABS: BASOPHILS # (AUTO) 0.1 (0.0-0.1); BASOPHILS % 0.4 % (0.0-1.0); EOSINOPHILS # (AUTO) 0.3 (0.0-0.4); HEMATOCRIT 30.3 % (38.2-49.6); LYMPHOCYTES # (AUTO) 0.4 (1.0-3.2); LYMPHOCYTES % 2.9 % (18.0-39.1); MEAN CORPUSCULAR HEMOGLOBIN 27.7 pg (28-32); MEAN CORPUSCULAR VOLUME 83.9 fL (81-99); MONOCYTES # (AUTO) 0.7 (0.2-0.8); MONOCYTES % 5.9 % (4.4-11.3); NEUTROPHILS # (AUTO) 10.7 (2.1-6.9); NEUTROPHILS % 85.5 % (38.7-80.0); PLATELET COUNT 201 x10e3/uL (140-360); RED BLOOD COUNT 3.61 x10e6/uL (4.3-5.7); RED CELL DISTRIBUTION WIDTH 21.4 % (11.7-14.4)
[2024-09-10 12:36] LABS: INR 0.96; PROTHROMBIN TIME 13.4 seconds (11.9-14.5)
[2024-09-10 12:43] LABS: ANION GAP 9.9 mmol/L (8-16); CALCIUM 8.8 mg/dL (8.4-10.2); CREATININE, SERUM 0.86 mg/dL (0.72-1.25); POTASSIUM 4.9 mmol/L (3.5-5.1)
== END ==
LOC: US 11:22
PROVIDERS: ATTEND Internal Medicine Gastroenterology
DX: R18.8 Other ascites (principal)
CPT/HCPCS: 36415; 49083; 80048; 85025; 85610; 85730

== ENCOUNTER → 2024-09-21 | Outpatient (REF) | payer OTHER, MEDICARE ==
[~2024-09-21] MED LIST changes: +ALBUMIN 25% 12.5GM 50ML 100 ML IV ONE; +ALBUMIN 25% 12.5GM 50ML 150 ML IV ONE; -ALBUMIN 25% 12.5GM 50ML 200 ML IV ONE; +ALBUMIN 25% 12.5GM 50ML 50 ML IV ONE
== END ==
LOC: US 13:18
PROVIDERS: ATTEND Internal Medicine Gastroenterology
DX: R18.8 Other ascites (principal)
CPT/HCPCS: 49083

== ENCOUNTER → 2024-09-29 | Outpatient (REF) | payer OTHER, MEDICARE ==
[~2024-09-29] MED LIST changes: -ALBUMIN 25% 12.5GM 50ML 100 ML IV ONE; -ALBUMIN 25% 12.5GM 50ML 150 ML IV ONE; +ALBUMIN 25% 12.5GM 50ML 250 ML IV ONE; -ALBUMIN 25% 12.5GM 50ML 50 ML IV ONE
== END ==
LOC: US 10:30
PROVIDERS: ATTEND Internal Medicine Gastroenterology
DX: R18.8 Other ascites (principal)
CPT/HCPCS: 49083

== ENCOUNTER → 2024-10-07 | Outpatient (REF) | payer OTHER, MEDICARE ==
[~2024-10-07] MED LIST changes: +ALBUMIN 25% 12.5GM 50ML 200 ML IV ONE; -ALBUMIN 25% 12.5GM 50ML 250 ML IV ONE
[2024-10-07 12:36] LABS: BASOPHILS # (AUTO) 0.1 (0.0-0.1); BASOPHILS % 0.8 % (0.0-1.0); EOSINOPHILS # (AUTO) 0.3 (0.0-0.4); EOSINOPHILS % 2.9 % (0.0-6.0); HEMATOCRIT 33.3 % (38.2-49.6); HEMOGLOBIN 11.1 g/dL (14.0-18.0); LYMPHOCYTES # (AUTO) 0.6 (1.0-3.2); LYMPHOCYTES % 5.1 % (18.0-39.1); MEAN CORPUSCULAR HEMOGLOBIN 29.8 pg (28-32); MEAN CORPUSCULAR HGB CONC 33.3 g/dL (31-35); MEAN CORPUSCULAR VOLUME 89.3 fL (81-99); MONOCYTES # (AUTO) 0.9 (0.2-0.8); NEUTROPHILS # (AUTO) 8.7 (2.1-6.9); NEUTROPHILS % 77.3 % (38.7-80.0); PLATELET COUNT 215 x10e3/uL (140-360); RED BLOOD COUNT 3.73 x10e6/uL (4.3-5.7); RED CELL DISTRIBUTION WIDTH 22.6 % (11.7-14.4); WHITE BLOOD COUNT 11.21 x10e3/uL (4.8-10.8)
[2024-10-07 12:50] LABS: ANION GAP 14.4 mmol/L (8-16); CALCIUM 8.7 mg/dL (8.4-10.2); CREATININE, SERUM 0.89 mg/dL (0.72-1.25); PROTHROMBIN TIME 13.8 seconds (11.9-14.5)
[2024-10-07 12:51] LABS: PARTIAL THROMBOPLASTIN TIME 33.3 seconds (23.8-35.5); POTASSIUM 5.4 mmol/L (3.5-5.1)
== END ==
LOC: US 12:12
PROVIDERS: ATTEND Internal Medicine Gastroenterology
DX: R18.8 Other ascites (principal)
CPT/HCPCS: 36415; 49083; 80048; 85025; 85610; 85730

== ENCOUNTER → 2024-10-15 | Outpatient (REF) | payer OTHER, MEDICARE ==
[~2024-10-15] MED LIST changes: +ALBUMIN 25% 12.5GM 50ML 150 ML IV ONE; -ALBUMIN 25% 12.5GM 50ML 200 ML IV ONE
[2024-10-15 11:18] LABS: BASOPHILS # (AUTO) 0.1 (0.0-0.1); BASOPHILS % 0.7 % (0.0-1.0); EOSINOPHILS # (AUTO) 0.3 (0.0-0.4); HEMOGLOBIN 10.6 g/dL (14.0-18.0); LYMPHOCYTES # (AUTO) 0.6 (1.0-3.2); LYMPHOCYTES % 6.1 % (18.0-39.1); MEAN CORPUSCULAR HEMOGLOBIN 30.5 pg (28-32); MEAN CORPUSCULAR HGB CONC 34.2 g/dL (31-35); MEAN CORPUSCULAR VOLUME 89.3 fL (81-99); MONOCYTES % 10.4 % (4.4-11.3); NEUTROPHILS % 76.2 % (38.7-80.0); PLATELET COUNT 199 x10e3/uL (140-360); RED BLOOD COUNT 3.47 x10e6/uL (4.3-5.7); RED CELL DISTRIBUTION WIDTH 21.2 % (11.7-14.4); WHITE BLOOD COUNT 9.22 x10e3/uL (4.8-10.8)
[2024-10-15 11:40] LABS: INR 1.29; PROTHROMBIN TIME 16.8 seconds (11.9-14.5)
[2024-10-15 11:41] LABS: PARTIAL THROMBOPLASTIN TIME 34.6 seconds (23.8-35.5)
[2024-10-15 11:45] LABS: ALBUMIN 2.8 g/dL (3.5-5.0); ALBUMIN/GLOBULIN RATIO 0.9 (0.8-2.0); ANION GAP 13.4 mmol/L (8-16); BILIRUBIN,TOTAL 0.7 mg/dL (0.2-1.2); CALCIUM 8.3 mg/dL (8.4-10.2); CREATININE, SERUM 1.08 mg/dL (0.72-1.25); TOTAL PROTEIN 5.9 g/dL (6.5-8.1)
[2024-10-15 11:48] LABS: POTASSIUM 5.4 mmol/L (3.5-5.1)
== END ==
LOC: US 10:38
PROVIDERS: ATTEND Internal Medicine Gastroenterology
DX: R18.8 Other ascites (principal)
CPT/HCPCS: 36415; 49083; 80053; 85025; 85610; 85730

== ENCOUNTER → 2024-10-22 | Outpatient (REF) | payer OTHER, MEDICARE ==
[~2024-10-22] MED LIST changes: -ALBUMIN 25% 12.5GM 50ML 150 ML IV ONE; +ALBUMIN 25% 12.5GM 50ML 200 ML IV ONE
== END ==
LOC: US 12:37
PROVIDERS: ATTEND Internal Medicine Gastroenterology
DX: R18.8 Other ascites (principal)
CPT/HCPCS: 36415; 49083

== ENCOUNTER → 2024-10-27 | Outpatient (REF) | payer OTHER, MEDICARE ==
[~2024-10-27] MED LIST changes: +ALBUMIN 25% 12.5GM 50ML 150 ML IV ONE; -ALBUMIN 25% 12.5GM 50ML 200 ML IV ONE
== END ==
LOC: RAD 09:18
PROVIDERS: ATTEND Internal Medicine
DX: I73.9 Peripheral vascular disease, unspecified (principal)
CPT/HCPCS: 93925; 93970

== ENCOUNTER → 2024-10-27 | Outpatient (REF) | payer OTHER, MEDICARE ==
[~2024-10-27] MED LIST changes: -ALBUMIN 25% 12.5GM 50ML 150 ML IV ONE
[2024-10-27 09:46] LABS: BASOPHILS # (AUTO) 0.1 (0.0-0.1); BASOPHILS % 0.8 % (0.0-1.0); EOSINOPHILS # (AUTO) 0.3 (0.0-0.4); EOSINOPHILS % 3.5 % (0.0-6.0); HEMATOCRIT 31.5 % (38.2-49.6); HEMOGLOBIN 10.8 g/dL (14.0-18.0); LYMPHOCYTES # (AUTO) 0.6 (1.0-3.2); LYMPHOCYTES % 5.9 % (18.0-39.1); MEAN CORPUSCULAR HEMOGLOBIN 31.3 pg (28-32); MEAN CORPUSCULAR HGB CONC 34.3 g/dL (31-35); MEAN CORPUSCULAR VOLUME 91.3 fL (81-99); MONOCYTES # (AUTO) 0.9 (0.2-0.8); MONOCYTES % 9.3 % (4.4-11.3); NEUTROPHILS # (AUTO) 7.6 (2.1-6.9); NEUTROPHILS % 78.1 % (38.7-80.0); PLATELET COUNT 172 x10e3/uL (140-360); RED BLOOD COUNT 3.45 x10e6/uL (4.3-5.7); RED CELL DISTRIBUTION WIDTH 18.7 % (11.7-14.4); WHITE BLOOD COUNT 9.76 x10e3/uL (4.8-10.8)
[2024-10-27 09:58] LABS: INR 1.04; PROTHROMBIN TIME 14.2 seconds (11.9-14.5)
[2024-10-27 10:03] LABS: ANION GAP 13.4 mmol/L (8-16); CALCIUM 8.2 mg/dL (8.4-10.2); CREATININE, SERUM 1.34 mg/dL (0.72-1.25); POTASSIUM 4.4 mmol/L (3.5-5.1)
== END ==
LOC: US 09:12
PROVIDERS: ATTEND Internal Medicine Gastroenterology
DX: R18.8 Other ascites (principal)
CPT/HCPCS: 36415; 49083; 80048; 85025; 85610; 85730

== ENCOUNTER → 2024-11-03 | Outpatient (REF) | payer OTHER, MEDICARE ==
[~2024-11-03] MED LIST changes: +ALBUMIN 25% 12.5GM 50ML 150 ML IV ONE
[2024-11-03 11:28] LABS: BASOPHILS # (AUTO) 0.1 (0.0-0.1); BASOPHILS % 0.5 % (0.0-1.0); EOSINOPHILS # (AUTO) 0.3 (0.0-0.4); EOSINOPHILS % 2.6 % (0.0-6.0); HEMATOCRIT 28.4 % (38.2-49.6); HEMOGLOBIN 9.6 g/dL (14.0-18.0); LYMPHOCYTES # (AUTO) 0.4 (1.0-3.2); LYMPHOCYTES % 3.3 % (18.0-39.1); MEAN CORPUSCULAR HEMOGLOBIN 31.4 pg (28-32); MEAN CORPUSCULAR HGB CONC 33.8 g/dL (31-35); MEAN CORPUSCULAR VOLUME 92.8 fL (81-99); MONOCYTES # (AUTO) 1.1 (0.2-0.8); MONOCYTES % 10.5 % (4.4-11.3); NEUTROPHILS # (AUTO) 8.5 (2.1-6.9); NEUTROPHILS % 81.5 % (38.7-80.0); PLATELET COUNT 161 x10e3/uL (140-360); RED BLOOD COUNT 3.06 x10e6/uL (4.3-5.7); RED CELL DISTRIBUTION WIDTH 17.8 % (11.7-14.4); WHITE BLOOD COUNT 10.47 x10e3/uL (4.8-10.8)
[2024-11-03 11:40] LABS: INR 1.06; PROTHROMBIN TIME 14.4 seconds (11.9-14.5)
[2024-11-03 11:41] LABS: PARTIAL THROMBOPLASTIN TIME 33.1 seconds (23.8-35.5)
[2024-11-03 11:45] LABS: ALBUMIN 2.7 g/dL (3.5-5.0); ALKALINE PHOSPHATASE 136 IU/L (40-150); ANION GAP 14.9 mmol/L (8-16); BILIRUBIN,TOTAL 0.8 mg/dL (0.2-1.2); BLOOD UREA NITROGEN 32 mg/dL (7-26); BUN/CREATININE RATIO 14 (6-25); CARBON DIOXIDE 18 mmol/L (22-29); CHLORIDE 95 mmol/L (98-107); CREATININE, SERUM 2.33 mg/dL (0.72-1.25); EST GLOMERULAR FILTRATION RATE 31 ML/MIN (>=60); GLUCOSE 96 mg/dL (74-118); POTASSIUM 4.9 mmol/L (3.5-5.1); SODIUM 123 mmol/L (136-145); TOTAL PROTEIN 5.5 g/dL (6.5-8.1)
[2024-11-03 11:46] LABS: ALANINE AMINOTRANSFERASE < 6 IU/L (0-55)
== END ==
LOC: US 10:48
PROVIDERS: ATTEND Internal Medicine Gastroenterology
DX: R18.8 Other ascites (principal)
CPT/HCPCS: 36415; 49083; 80053; 85025; 85610; 85730

== ENCOUNTER 2024-11-09 07:02 | Emergency (ER) | payer OTHER, MEDICARE ==
[~2024-11-09] VITALS: Ht 188 cm; Wt 77.1 kg
[~2024-11-09 07:02] MED LIST changes: -ALBUMIN 25% 12.5GM 50ML 150 ML IV ONE
[2024-11-09 07:09] VITALS: PULSE 99; RESP 17; TEMP 98.2
[2024-11-09 08:50] LABS: BASOPHILS % 0.4 % (0.0-1.0); EOSINOPHILS # (AUTO) 0.2 (0.0-0.4); EOSINOPHILS % 2.5 % (0.0-6.0); HEMATOCRIT 28.8 % (38.2-49.6); HEMOGLOBIN 10.2 g/dL (14.0-18.0); LYMPHOCYTES # (AUTO) 0.6 (1.0-3.2); LYMPHOCYTES % 6.5 % (18.0-39.1); MEAN CORPUSCULAR HEMOGLOBIN 32.2 pg (28-32); MEAN CORPUSCULAR HGB CONC 35.4 g/dL (31-35); MEAN CORPUSCULAR VOLUME 90.9 fL (81-99); MONOCYTES # (AUTO) 0.7 (0.2-0.8); NEUTROPHILS # (AUTO) 7.2 (2.1-6.9); NEUTROPHILS % 79.4 % (38.7-80.0); PLATELET COUNT 175 x10e3/uL (140-360); RED BLOOD COUNT 3.17 x10e6/uL (4.3-5.7); WHITE BLOOD COUNT 9.04 x10e3/uL (4.8-10.8)
[2024-11-09 09:06] LABS: INR 1.02
[2024-11-09 09:07] LABS: PARTIAL THROMBOPLASTIN TIME 34.4 seconds (23.8-35.5)
[2024-11-09 09:16] LABS: ALBUMIN 2.7 g/dL (3.5-5.0); ALBUMIN/GLOBULIN RATIO 0.9 (0.8-2.0); ALKALINE PHOSPHATASE 127 IU/L (40-150); ANION GAP 15.1 mmol/L (8-16); BILIRUBIN,TOTAL 0.8 mg/dL (0.2-1.2); BLOOD UREA NITROGEN 36 mg/dL (7-26); BUN/CREATININE RATIO 26 (6-25); CALCIUM 8.5 mg/dL (8.4-10.2); CARBON DIOXIDE 17 mmol/L (22-29); CHLORIDE 93 mmol/L (98-107); CREATINE KINASE 42 IU/L (30-200); EST GLOMERULAR FILTRATION RATE 56 ML/MIN (>=60); GLUCOSE 104 mg/dL (74-118); MAGNESIUM 2.1 MG/DL (1.3-2.1); POTASSIUM 4.1 mmol/L (3.5-5.1); SODIUM 121 mmol/L (136-145); TOTAL PROTEIN 5.8 g/dL (6.5-8.1)
[2024-11-09 09:16] LABS: CLARITY,URINE CLEAR (CLEAR); COLOR,URINE YELLOW (YELLOW); PH,URINE 6 (5 - 7)
[2024-11-09 09:17] LABS: BILIRUBIN,URINE NEGATIVE (NEGATIVE); GLUCOSE, URINE NEGATIVE (NEGATIVE); KETONES,URINE NEGATIVE (NEGATIVE); LEUKOCYTE ESTERASE ,URINE NEGATIVE (NEGATIVE); NITRITE,URINE NEGATIVE (NEGATIVE); PROTEIN,URINE DIPSTICK NEGATIVE (NEGATIVE); URINE UROBILINOGEN 0.2 mg/dL (0.2 - 1)
[2024-11-09 09:20] LABS: ALANINE AMINOTRANSFERASE < 6 IU/L (0-55)
[2024-11-09 09:22] LABS: TROPONIN I 0.015 ng/mL (0-0.300)
[2024-11-09 09:27] LABS: BACTERIA,URINE FEW /HPF; EPITHELIAL CELLS,URINE RARE /LPF
[2024-11-09] MEDS ORDERED: CEFDINIR300 MG PO (09:56)
[2024-11-09 10:12] VITALS: BP 136/88; PULSE 84; RESP 17; O2SAT 100
== END 2024-11-09 10:20 | disposition home or self-care (01) ==
LOC: ER 07:05
DX: R10.9 Unspecified abdominal pain (principal); N28.9 Disorder of kidney and ureter, unspecified; E87.1 Hypo-osmolality and hyponatremia; K74.60 Unspecified cirrhosis of liver; N30.90 Cystitis, unspecified without hematuria; G62.9 Polyneuropathy, unspecified
CPT/HCPCS: 36415; 74176; 80053; 81001; 82550; 83735; 84484; 85025; 85610; 85730; 87086; 87186; 99284

== ENCOUNTER → 2024-11-11 | Outpatient (REF) | payer OTHER, MEDICARE ==
[~2024-11-11] MED LIST changes: +ALBUMIN 25% 12.5GM 50ML 150 ML IV ONE; +CEFDINIR300 MG PO
== END ==
LOC: US 12:36
PROVIDERS: ATTEND Internal Medicine Gastroenterology
DX: R18.8 Other ascites (principal)
CPT/HCPCS: 49083; C1729

== ENCOUNTER → 2024-11-19 | Outpatient (REF) | payer OTHER, MEDICARE ==
[2024-11-19 12:33] LABS: BASOPHILS # (AUTO) 0.1 (0.0-0.1); BASOPHILS % 0.5 % (0.0-1.0); EOSINOPHILS # (AUTO) 0.3 (0.0-0.4); EOSINOPHILS % 2.2 % (0.0-6.0); HEMATOCRIT 29.1 % (38.2-49.6); HEMOGLOBIN 9.7 g/dL (14.0-18.0); LYMPHOCYTES # (AUTO) 0.6 (1.0-3.2); LYMPHOCYTES % 4.9 % (18.0-39.1); MEAN CORPUSCULAR HEMOGLOBIN 31.8 pg (28-32); MEAN CORPUSCULAR HGB CONC 33.3 g/dL (31-35); MEAN CORPUSCULAR VOLUME 95.4 fL (81-99); MONOCYTES # (AUTO) 1.2 (0.2-0.8); MONOCYTES % 10.4 % (4.4-11.3); NEUTROPHILS # (AUTO) 9.2 (2.1-6.9); NEUTROPHILS % 79.8 % (38.7-80.0); PLATELET COUNT 190 x10e3/uL (140-360); RED BLOOD COUNT 3.05 x10e6/uL (4.3-5.7); RED CELL DISTRIBUTION WIDTH 15.8 % (11.7-14.4); WHITE BLOOD COUNT 11.54 x10e3/uL (4.8-10.8)
[2024-11-19 12:54] LABS: INR 1.05; PROTHROMBIN TIME 14.3 seconds (11.9-14.5)
[2024-11-19 12:55] LABS: PARTIAL THROMBOPLASTIN TIME 33.7 seconds (23.8-35.5)
[2024-11-19 13:01] LABS: ANION GAP 12.9 mmol/L (8-16); CALCIUM 8.5 mg/dL (8.4-10.2); CREATININE, SERUM 0.97 mg/dL (0.72-1.25); POTASSIUM 3.9 mmol/L (3.5-5.1)
== END ==
LOC: US 11:16
PROVIDERS: ATTEND Internal Medicine Gastroenterology
DX: R18.8 Other ascites (principal)
CPT/HCPCS: 36415; 49083; 80048; 85025; 85610; 85730

== ENCOUNTER → 2024-11-27 | Outpatient (REF) | payer OTHER, MEDICARE ==
[~2024-11-27] MED LIST changes: -ALBUMIN 25% 12.5GM 50ML 150 ML IV ONE; +ALBUMIN 25% 12.5GM 50ML 200 ML IV ONE
== END ==
LOC: US 08:04
PROVIDERS: ATTEND Internal Medicine Gastroenterology
DX: R18.8 Other ascites (principal)
CPT/HCPCS: 49083

== ENCOUNTER → 2024-12-24 | Outpatient (REF) | payer MEDICARE ==
[~2024-12-24] MED LIST changes: +ALBUMIN 25% 12.5GM 50ML 100 ML IV ONE; -ALBUMIN 25% 12.5GM 50ML 200 ML IV ONE
== END ==
LOC: US 14:11
PROVIDERS: ATTEND Internal Medicine Gastroenterology
DX: R18.8 Other ascites (principal)
CPT/HCPCS: 49083

== ENCOUNTER → 2024-12-30 | Outpatient (REF) | payer MEDICARE ==
[~2024-12-30] MED LIST changes: +LIDOCAINE HCL 1% 30ML-PF VIAL ONE
[2024-12-30 10:16] LABS: BASOPHILS # (AUTO) 0.1 (0.0-0.1); BASOPHILS % 0.8 % (0.0-1.0); EOSINOPHILS # (AUTO) 0.3 (0.0-0.4); EOSINOPHILS % 3.3 % (0.0-6.0); HEMATOCRIT 31.5 % (38.2-49.6); HEMOGLOBIN 10.5 g/dL (14.0-18.0); LYMPHOCYTES # (AUTO) 0.5 (1.0-3.2); LYMPHOCYTES % 4.7 % (18.0-39.1); MEAN CORPUSCULAR HGB CONC 33.3 g/dL (31-35); MEAN CORPUSCULAR VOLUME 99.1 fL (81-99); MONOCYTES # (AUTO) 1.1 (0.2-0.8); MONOCYTES % 10.9 % (4.4-11.3); NEUTROPHILS # (AUTO) 7.6 (2.1-6.9); NEUTROPHILS % 76.1 % (38.7-80.0); PLATELET COUNT 203 x10e3/uL (140-360); RED BLOOD COUNT 3.18 x10e6/uL (4.3-5.7); RED CELL DISTRIBUTION WIDTH 16.6 % (11.7-14.4); WHITE BLOOD COUNT 9.98 x10e3/uL (4.8-10.8)
[2024-12-30 10:32] LABS: INR 1.05; PROTHROMBIN TIME 14.6 seconds (11.9-14.5)
[2024-12-30 10:33] LABS: PARTIAL THROMBOPLASTIN TIME 31.2 seconds (23.8-35.5)
[2024-12-30 10:37] LABS: ALBUMIN 2.9 g/dL (3.5-5.0); ALBUMIN/GLOBULIN RATIO 0.9 (0.8-2.0); ALKALINE PHOSPHATASE 182 IU/L (40-150); ANION GAP 11.8 mmol/L (8-16); BILIRUBIN,TOTAL 0.6 mg/dL (0.2-1.2); BLOOD UREA NITROGEN 23 mg/dL (7-26); BUN/CREATININE RATIO 21 (6-25); CALCIUM 8.2 mg/dL (8.4-10.2); CARBON DIOXIDE 18 mmol/L (22-29); CHLORIDE 104 mmol/L (98-107); CREATININE, SERUM 1.11 mg/dL (0.72-1.25); EST GLOMERULAR FILTRATION RATE 75 ML/MIN (>=60); GLUCOSE 91 mg/dL (74-118); POTASSIUM 3.8 mmol/L (3.5-5.1); SODIUM 130 mmol/L (136-145)
[2024-12-30 10:38] LABS: ALANINE AMINOTRANSFERASE < 6 IU/L (0-55)
== END ==
LOC: US 08:53
PROVIDERS: ATTEND Internal Medicine Gastroenterology
DX: R18.8 Other ascites (principal)
CPT/HCPCS: 36415; 49083; 80053; 85025; 85610; 85730; J2003

== ENCOUNTER → 2025-01-06 | Outpatient (REF) | payer MEDICARE ==
[~2025-01-06] MED LIST changes: -ALBUMIN 25% 12.5GM 50ML 100 ML IV ONE; +ALBUMIN 25% 12.5GM 50ML 200 ML IV ONE; -LIDOCAINE HCL 1% 30ML-PF VIAL ONE
== END ==
LOC: US 11:09
PROVIDERS: ATTEND Internal Medicine Gastroenterology
DX: R18.8 Other ascites (principal)
CPT/HCPCS: 49083

== ENCOUNTER → 2025-01-13 | Outpatient (REF) | payer MEDICARE ==
[~2025-01-13] MED LIST changes: +ALBUMIN 25% 12.5GM 50ML 150 ML IV ONE; -ALBUMIN 25% 12.5GM 50ML 200 ML IV ONE; +INDERAL10 MG PO
== END ==
LOC: US 16:39
PROVIDERS: ATTEND Internal Medicine Gastroenterology
DX: R18.8 Other ascites (principal)
CPT/HCPCS: 49083; C1729

== ENCOUNTER → 2025-01-22 | Outpatient (REF) | payer MEDICARE ==
[~2025-01-22] MED LIST changes: +ALBUMIN 25% 12.5GM 50ML 0 ML IV ONE; -ALBUMIN 25% 12.5GM 50ML 150 ML IV ONE
== END ==
LOC: US 09:25
PROVIDERS: ATTEND Internal Medicine Gastroenterology
DX: R18.8 Other ascites (principal)
CPT/HCPCS: 49083; C1729

== ENCOUNTER → 2025-01-25 | Outpatient (REF) | payer MEDICARE ==
[~2025-01-25] MED LIST changes: -ALBUMIN 25% 12.5GM 50ML 0 ML IV ONE; +ALBUMIN 25% 12.5GM 50ML 200 ML IV ONE
[2025-01-25 10:56] LABS: BASOPHILS % 0.3 % (0.0-1.0); EOSINOPHILS % 0.7 % (0.0-6.0); LYMPHOCYTES % 1.3 % (18.0-39.1); MONOCYTES % 4.4 % (4.4-11.3); NEUTROPHILS % 90.6 % (38.7-80.0); RED CELL DISTRIBUTION WIDTH 15.3 % (11.7-14.4)
[2025-01-25 11:47] LABS: INR 1.14
[2025-01-25 11:52] LABS: EST GLOMERULAR FILTRATION RATE 46.0 ML/MIN (>=60)
[2025-01-25 11:58] LABS: BAND NEUTROPHILS % (MANUAL) 1 %; EOSINOPHILS % (MANUAL) 1 % (0-7); MONOCYTES % (MANUAL) 7 % (3.4-9.0); NEUTROPHILS % (MANUAL) 91 % (40-74)
[2025-01-25 11:59] LABS: PLATELET ESTIMATE ADEQUATE; PLATELET MORPHOLOGY COMMENT NORMAL
== END ==
LOC: US 10:25
PROVIDERS: ATTEND Internal Medicine Gastroenterology
DX: R18.8 Other ascites (principal)
CPT/HCPCS: 36415; 49083; 80053; 85025; 85610; 85730

== ENCOUNTER 2025-01-27 15:39 | Inpatient (IN) | payer MEDICARE ==
[~2025-01-27] VITALS: Ht 188 cm; Wt 76.2 kg
[~2025-01-27 15:39] MED LIST changes: -ALBUMIN 25% 12.5GM 50ML 200 ML IV ONE; -INDERAL10 MG PO
[2025-01-27 16:18] LABS: BASOPHILS % 0.2 % (0.0-1.0); EOSINOPHILS % 0.4 % (0.0-6.0); LYMPHOCYTES % 0.8 % (18.0-39.1); MONOCYTES % 3.3 % (4.4-11.3); NEUTROPHILS % 91.5 % (38.7-80.0); RED CELL DISTRIBUTION WIDTH 15.6 % (11.7-14.4)
[2025-01-27 16:38] LABS: EST GLOMERULAR FILTRATION RATE 30.0 ML/MIN (>=60)
[2025-01-27] MEDS: SODIUM CHLORIDE 0.9% 1000ML 1,000 ML IV SCH ×2 (16:48→18:09)
[2025-01-27 17:05] LABS: BAND NEUTROPHILS % (MANUAL) 11 %; METAMYELOCYTES % (MANUAL) 1 % (0-0); MONOCYTES % (MANUAL) 1 % (3.4-9.0); MYELOCYTES % (MANUAL) 1 % (0-0); NEUTROPHILS % (MANUAL) 86 % (40-74)
[2025-01-27 17:07] LABS: PLATELET ESTIMATE ADEQUATE; PLATELET MORPHOLOGY COMMENT NORMAL; RBC MORPHOLOGY COMMENT NORMAL
[2025-01-27] MEDS ORDERED: IOPAMIDOL 370 MG/ML 100 ML INFUS..BTL INJ ONE (17:18)
[2025-01-27] MEDS: Vancomycin IV 1 GM in SODIUM CHLORIDE 0.9% 250ML 250 ML IV ONE (17:50)
[2025-01-27 17:52] LABS: LEUKOCYTE ESTERASE ,URINE NEGATIVE (NEGATIVE); PROTEIN,URINE DIPSTICK NEGATIVE (NEGATIVE); URINE UROBILINOGEN 0.2 mg/dL (0.2 - 1)
[2025-01-27 18:04] LABS: WBC,URINE (MAN) 0-5 /HPF (0-5)
[2025-01-27 18:05] LABS: EPITHELIAL CELLS,URINE RARE /LPF
[2025-01-27 18:06] LABS: INR 1.08
[2025-01-27] MEDS: Morphine 4mg INJECTION 4 MG/ML INJ IV PRN (18:09)
[2025-01-27] MEDS: ONDANSETRON HCL INJ 2MG/ML 2ML 2 MG/ML VIAL IV PRN (18:13)
[2025-01-27 18:56] VITALS: TEMP 97.8
[2025-01-27 21:45] VITALS: PULSE 123; RESP 17
[2025-01-27] MEDS: METOPROLOL TARTRATE INJ 1 MG/ML VIAL IV ONE (22:12)
[2025-01-27] MEDS: SODIUM CHLORIDE 1 GM TAB PO SCH (22:12)
[2025-01-27] MEDS: NICOTINE 21 MG/EA PATCH TOP SCH (22:17)
[2025-01-27 23:12] VITALS: PULSE 122; RESP 20; O2SAT 98
[2025-01-27 23:30] VITALS: BP 104/83; PULSE 109; RESP 18; TEMP 97.6; O2SAT 92
[2025-01-28] VITALS (25 sets, daily range): BP systolic 97–142; BP diastolic 67–113; PULSE 102–127; RESP 11–27; TEMP 97.6–98.3; O2SAT 86–100
[2025-01-28] MEDS ORDERED: INDERAL10 MG PO (02:30)
[2025-01-28 05:30] LABS: BASOPHILS % 0.2 % (0.0-1.0); EOSINOPHILS % 0.5 % (0.0-6.0); LYMPHOCYTES % 1.5 % (18.0-39.1); MONOCYTES % 5.7 % (4.4-11.3); NEUTROPHILS % 87.9 % (38.7-80.0); RED CELL DISTRIBUTION WIDTH 15.7 % (11.7-14.4)
[2025-01-28 06:05] LABS: EST GLOMERULAR FILTRATION RATE 44.0 ML/MIN (>=60)
[2025-01-28 09:20] LABS: LYMPHOCYTES % (MANUAL) 2 % (19-48); MONOCYTES % (MANUAL) 3 % (3.4-9.0); NEUTROPHILS % (MANUAL) 95 % (40-74); PLATELET ESTIMATE ADEQUATE
[2025-01-28 09:21] LABS: PLATELET MORPHOLOGY COMMENT NORMAL; RBC MORPHOLOGY COMMENT NORMAL
[2025-01-28] MEDS: CEFTRIAXONE 2 GM in SODIUM CHLORIDE 0.9% 100 ML IV SCH (15:38)
[2025-01-28] MEDS: VANCOMYCIN 1.25GM/250 ML (PEG) 250 ML IV SCH (15:40)
[2025-01-28] MEDS ORDERED: ALBUMIN 25% 25GM 100ML 0.25 GM/ML BTL IV SCH (16:00)
[2025-01-28] MEDS ORDERED: LACTULOSE SYRUP 20 GM/30 ML UDC PO PRN (16:00)
[2025-01-28] MEDS: SODIUM CHLORIDE 1 GM TAB PO SCH (16:31)
[2025-01-28] MEDS: COLLAGENASE 5 GM TUBE TOP SCH (16:31)
[2025-01-28] MEDS: RIFAXIMIN 550 MG TABLET PO SCH (16:38)
[2025-01-28] MEDS: ALBUMIN 25% 25GM 100ML 100 ML IV SCH (18:13)
[2025-01-29] VITALS (28 sets, daily range): BP systolic 92–132; BP diastolic 66–103; PULSE 93–130; RESP 12–24; TEMP 97.5–98.3; O2SAT 92–100
[2025-01-29] MEDS: LEVOTHYROXINE SODIUM 25 MCG TABLET PO SCH (05:30)
[2025-01-29 08:19] LABS: BASOPHILS % 0.3 % (0.0-1.0); EOSINOPHILS % 0.8 % (0.0-6.0); LYMPHOCYTES % 2.1 % (18.0-39.1); MONOCYTES % 7.0 % (4.4-11.3); NEUTROPHILS % 85.0 % (38.7-80.0); RED CELL DISTRIBUTION WIDTH 16.1 % (11.7-14.4)
[2025-01-29] MEDS: SPIRONOLACTONE 25 MG TAB PO SCH (08:21)
[2025-01-29] MEDS: PANTOPRAZOLE SOD 40 MG TABEC PO SCH (08:21)
[2025-01-29] MEDS: MUPIROCIN 2% OINT 22 GM TUBE TOP SCH (08:22)
[2025-01-29 09:10] LABS: EST GLOMERULAR FILTRATION RATE 53.0 ML/MIN (>=60)
[2025-01-29 13:00] LABS: MONOCYTES % (MANUAL) 5 % (3.4-9.0); MYELOCYTES % (MANUAL) 1 % (0-0); NEUTROPHILS % (MANUAL) 94 % (40-74); PLATELET ESTIMATE SLIGHTLY DECREASED; PLATELET MORPHOLOGY COMMENT NORMAL; RBC MORPHOLOGY COMMENT NORMAL
[2025-01-30] VITALS (10 sets, daily range): BP systolic 107–140; BP diastolic 80–97; PULSE 46–131; RESP 18–22; TEMP 97.5–98.6; O2SAT 90–99
[2025-01-30 05:54] LABS: BASOPHILS % 0.3 % (0.0-1.0); EOSINOPHILS % 0.8 % (0.0-6.0); LYMPHOCYTES % 1.8 % (18.0-39.1); MONOCYTES % 6.4 % (4.4-11.3); NEUTROPHILS % 86.2 % (38.7-80.0); RED CELL DISTRIBUTION WIDTH 16.5 % (11.7-14.4)
[2025-01-30 06:10] LABS: EST GLOMERULAR FILTRATION RATE 47.0 ML/MIN (>=60)
[2025-01-30 12:29] LABS: BAND NEUTROPHILS % (MANUAL) 1 %; LYMPHOCYTES % (MANUAL) 2 % (19-48); MONOCYTES % (MANUAL) 4 % (3.4-9.0); MYELOCYTES % (MANUAL) 1 % (0-0); NEUTROPHILS % (MANUAL) 92 % (40-74); PLATELET ESTIMATE ADEQUATE
[2025-01-30 12:30] LABS: PLATELET MORPHOLOGY COMMENT NORMAL; RBC MORPHOLOGY COMMENT NORMAL
[2025-01-31] VITALS (32 sets, daily range): BP systolic 97–147; BP diastolic 57–126; PULSE 87–141; RESP 11–25; TEMP 97.3–98.8; O2SAT 85–100
[2025-01-31 05:56] LABS: BASOPHILS % 0.3 % (0.0-1.0); EOSINOPHILS % 0.6 % (0.0-6.0); LYMPHOCYTES % 1.8 % (18.0-39.1); MONOCYTES % 4.7 % (4.4-11.3); NEUTROPHILS % 88.0 % (38.7-80.0); RED CELL DISTRIBUTION WIDTH 16.6 % (11.7-14.4)
[2025-01-31 06:11] LABS: EST GLOMERULAR FILTRATION RATE 32.0 ML/MIN (>=60)
[2025-01-31 11:38] LABS: BAND NEUTROPHILS % (MANUAL) 5 %; LYMPHOCYTES % (MANUAL) 1 % (19-48); METAMYELOCYTES % (MANUAL) 1 % (0-0); MONOCYTES % (MANUAL) 5 % (3.4-9.0); NEUTROPHILS % (MANUAL) 88 % (40-74)
[2025-01-31 11:39] LABS: PLATELET ESTIMATE ADEQUATE; PLATELET MORPHOLOGY COMMENT NORMAL
[2025-01-31] MEDS: ALBUMIN 25% 25GM 100ML 0.25 GM/ML BTL IV SCH (12:27)
[2025-01-31] MEDS: MEROPENEM 1 GM in SODIUM CHLORIDE 0.9% 100 ML IV SCH (12:33)
[2025-01-31] MEDS: FUROSEMIDE INJ 10 MG/ML 2 ML VIAL IV ONE (13:01)
[2025-01-31] MEDS: SODIUM BICARBONATE 8.4% VIAL 150 ML in DEXTROSE 5% 1,000 ML IV SCH (13:01)
[2025-01-31] MEDS: OCTREOTIDE ACETATE 500 MCG in SODIUM CHLORIDE 0.9% 250ML 249 ML IV SCH (14:05)
[2025-01-31 15:02] LABS: ABG BASE EXCESS -19.0 mmol/L (-2 - 3); ABG HCO3 8 mmol/L (22-26); ABG OXYGEN SATURATION 92.0 % (95-98); ABG PCO2 18 mmHg (35-45); ABG PH 7.27 (7.35-7.45); ABG PO2 71 mmHg (80-105); ABG TCO2 9
[2025-01-31] MEDS: MUPIROCIN 2% OINT 22 GM TUBE TOP SCH (17:02)
[2025-01-31] MEDS ORDERED: NALOXONE HCL INJ 0.4 MG/ML AMP IV PRN (22:15)
[2025-01-31] MEDS: Morphine 2mg Syringe 2 MG/ML SYR IV PRN (22:17)
[2025-02-01] VITALS (37 sets, daily range): BP systolic 90–137; BP diastolic 62–82; PULSE 106–131; RESP 14–27; TEMP 97.1–98.6; O2SAT 85–100
[2025-02-01 05:04] LABS: BASOPHILS % 0.3 % (0.0-1.0); EOSINOPHILS % 1.1 % (0.0-6.0); LYMPHOCYTES % 1.4 % (18.0-39.1); MONOCYTES % 3.1 % (4.4-11.3); NEUTROPHILS % 90.5 % (38.7-80.0); RED CELL DISTRIBUTION WIDTH 16.4 % (11.7-14.4)
[2025-02-01 05:18] LABS: INR 1.48
[2025-02-01 05:37] LABS: EST GLOMERULAR FILTRATION RATE 33 ML/MIN (>=60)
[2025-02-01] MEDS: SPIRONOLACTONE 25 MG TAB PO SCH (08:13)
[2025-02-01 08:15] LABS: LYMPHOCYTES % (MANUAL) 3 % (19-48); MONOCYTES % (MANUAL) 2 % (3.4-9.0); NEUTROPHILS % (MANUAL) 95 % (40-74)
[2025-02-01 08:16] LABS: PLATELET ESTIMATE ADEQUATE; PLATELET MORPHOLOGY COMMENT NORMAL; RBC MORPHOLOGY COMMENT NORMAL
[2025-02-01] MEDS: FUROSEMIDE INJ 10 MG/ML 4 ML VIAL IV ONE (08:22)
[2025-02-01] MEDS: LACTULOSE SYRUP 20 GM/30 ML UDC PO SCH (10:20)
[2025-02-01] MEDS: HYDROCODONE/APAP 5MG-325MG TAB PO PRN (10:48)
[2025-02-01] MEDS ORDERED: ALBUMIN 25% 12.5GM 50ML 150 ML IV ONE (12:43)
[2025-02-01] MEDS: OCTREOTIDE ACETATE 0.1 MG/ML 100MCG AMP SC SCH (13:59)
[2025-02-01 15:28] LABS: BODY FLUID APPEARANCE SL.CLOUDY; BODY FLUID COLOR YELLOW; BODY FLUID TYPE PERITONEAL; WBC,BODY FLUID 70 cells/uL
[2025-02-01] MEDS: MIDODRINE HCL 5 MG TABLET PO SCH (17:24)
[2025-02-01] MEDS: ALBUMIN 25% 25GM 100ML 0.25 GM/ML BTL IV SCH (17:25)
[2025-02-01 18:29] LABS: LYMPHOCYTES,BODY FLUID 22 %; MONO/MACROPHG,BODY FLUID 36 %; NEUTROPHILS,BODY FLUID 27 %; OTHER CELLS,BODY FLUID 15 %; TOTAL CELLS COUNTED (DIFF) 100
[2025-02-02] VITALS (31 sets, daily range): BP systolic 84–143; BP diastolic 61–93; PULSE 108–134; RESP 15–31; TEMP 97.8–98.5; O2SAT 89–100
[2025-02-02] MEDS: IRON SUCROSE 100 MG in SODIUM CHLORIDE 0.9% 100 ML IV SCH (04:02)
[2025-02-02 05:17] LABS: BASOPHILS % 0.2 % (0.0-1.0); EOSINOPHILS % 0.9 % (0.0-6.0); LYMPHOCYTES % 1.3 % (18.0-39.1); MONOCYTES % 2.9 % (4.4-11.3); NEUTROPHILS % 91.9 % (38.7-80.0); RED CELL DISTRIBUTION WIDTH 16.4 % (11.7-14.4)
[2025-02-02 05:49] LABS: EST GLOMERULAR FILTRATION RATE 44.0 ML/MIN (>=60)
[2025-02-02] MEDS: ALBUMIN 25% 25GM 100ML 0.25 GM/ML BTL IV ONE (06:05)
[2025-02-02] MEDS: METOPROLOL TARTRATE INJ 1 MG/ML VIAL IV ONE ×2 (06:29→09:09)
[2025-02-02 08:44] LABS: BAND NEUTROPHILS % (MANUAL) 4 %; EOSINOPHILS % (MANUAL) 2 % (0-7); LYMPHOCYTES % (MANUAL) 5 % (19-48); MONOCYTES % (MANUAL) 2 % (3.4-9.0); NEUTROPHILS % (MANUAL) 87 % (40-74); PLATELET ESTIMATE ADEQUATE; PLATELET MORPHOLOGY COMMENT NORMAL
[2025-02-02] MEDS: CHLORDIAZEPOXIDE HCL 25 MG CAP PO SCH (13:21)
[2025-02-02] MEDS ORDERED: OCTREOTIDE ACETATE 0.1 MG/ML 100MCG AMP SC SCH (14:00)
[2025-02-02 15:38] LABS: GLUCOSE,BODY FLUID 134.0 mg/dL; TOTAL PROTEIN,BODY FLUID 1.6 g/dL
[2025-02-02] MEDS: POTASSIUM CHLORIDE 20 MEQ TAB CR PO STA (15:57)
[2025-02-03] VITALS (26 sets, daily range): BP systolic 103–132; BP diastolic 68–97; PULSE 100–147; RESP 19–35; TEMP 98.5–100; O2SAT 91–100
[2025-02-03] MEDS: METOPROLOL TARTRATE INJ 1 MG/ML VIAL IV ONE (00:55)
[2025-02-03 08:09] LABS: ABG BASE EXCESS -19.0 mmol/L (-2 - 3); ABG HCO3 8 mmol/L (22-26); ABG OXYGEN SATURATION 92.0 % (95-98); ABG PCO2 18 mmHg (35-45); ABG PH 7.27 (7.35-7.45); ABG PO2 71 mmHg (80-105); ABG TCO2 9
[2025-02-03 08:21] LABS: BASOPHILS % 0.2 % (0.0-1.0); EOSINOPHILS % 1.1 % (0.0-6.0); LYMPHOCYTES % 2.4 % (18.0-39.1); MONOCYTES % 3.9 % (4.4-11.3); NEUTROPHILS % 90.4 % (38.7-80.0); RED CELL DISTRIBUTION WIDTH 16.2 % (11.7-14.4)
[2025-02-03 08:25] LABS: EST GLOMERULAR FILTRATION RATE 59 ML/MIN (>=60)
[2025-02-03] MEDS: LORAZEPAM INJ 2 MG/ML VIAL IV ONE ×2 (09:04→15:53)
[2025-02-03] MEDS: FUROSEMIDE INJ 10 MG/ML 4 ML VIAL IV ONE ×2 (09:04→15:54)
[2025-02-03] MEDS: POTASSIUM CHLORIDE 20 MEQ TAB CR PO ONE ×2 (09:09→15:53)
[2025-02-03 10:00] LABS: ABG PCO2 44 mmHg (35-45); ABG PH 7.44 (7.35-7.45); ABG PO2 106 mmHg (80-105)
[2025-02-03 10:01] LABS: ABG BASE EXCESS 5.0 mmol/L (-2 - 3); ABG HCO3 29 mmol/L (22-26); ABG OXYGEN SATURATION 98.0 % (95-98); ABG TCO2 31
[2025-02-03 11:41] LABS: BAND NEUTROPHILS % (MANUAL) 1 %; LYMPHOCYTES % (MANUAL) 4 % (19-48); MONOCYTES % (MANUAL) 2 % (3.4-9.0); NEUTROPHILS % (MANUAL) 93 % (40-74); PLATELET ESTIMATE SLIGHTLY DECREASED; PLATELET MORPHOLOGY COMMENT NORMAL; RBC MORPHOLOGY COMMENT NORMAL
[2025-02-03] MEDS: SODIUM CHLORIDE 0.9% 250ML 250 ML ONE (12:12)
[2025-02-03] MEDS ORDERED: LORAZEPAM INJ 2 MG/ML VIAL IV PRN (14:45)
[2025-02-03] MEDS: LORAZEPAM INJ 2 MG/ML VIAL IV PRN (19:10)
[2025-02-04] VITALS (30 sets, daily range): BP systolic 94–130; BP diastolic 68–102; PULSE 125–146; RESP 24–39; TEMP 97.9–98.8; O2SAT 91–100
[2025-02-04 05:32] LABS: BASOPHILS % 0.2 % (0.0-1.0); EOSINOPHILS % 1.2 % (0.0-6.0); LYMPHOCYTES % 2.1 % (18.0-39.1); MONOCYTES % 3.0 % (4.4-11.3); NEUTROPHILS % 92.1 % (38.7-80.0); RED CELL DISTRIBUTION WIDTH 16.6 % (11.7-14.4)
[2025-02-04 06:04] LABS: EST GLOMERULAR FILTRATION RATE 55 ML/MIN (>=60)
[2025-02-04 08:52] LABS: BAND NEUTROPHILS % (MANUAL) 1 %; EOSINOPHILS % (MANUAL) 1 % (0-7); LYMPHOCYTES % (MANUAL) 1 % (19-48); MONOCYTES % (MANUAL) 3 % (3.4-9.0); NEUTROPHILS % (MANUAL) 94 % (40-74)
[2025-02-04 08:53] LABS: PLATELET ESTIMATE SLIGHTLY DECREASED; PLATELET MORPHOLOGY COMMENT NORMAL
[2025-02-04] MEDS: POTASSIUM CHLORIDE 20MEQ/100ML 100 ML IV ONE ×2 (09:59→16:36)
[2025-02-04] MEDS ORDERED: SOD CHL 0.45%/POT CHL 20MEQ 1,000 ML IV ONE (17:15)
[2025-02-04] MEDS: ALBUMIN 25% 25GM 100ML 0.25 GM/ML BTL IV SCH (17:48)
[2025-02-04] MEDS: FUROSEMIDE INJ 10 MG/ML 4 ML VIAL IV ONE (18:46)
[2025-02-04] MEDS: FUROSEMIDE INJ 100 MG in SODIUM CHLORIDE 0.9% 90 ML IV SCH (18:47)
[2025-02-04] MEDS: POTASSIUM CHLORIDE 20MEQ/100ML 200 ML IV ONE (19:16)
[2025-02-04] MEDS: METOPROLOL TARTRATE INJ 1 MG/ML VIAL IV PRN (21:40)
[2025-02-05] VITALS (30 sets, daily range): BP systolic 100–132; BP diastolic 64–88; PULSE 125–138; RESP 23–43; TEMP 97–100.4; O2SAT 94–99
[2025-02-05 06:03] LABS: EST GLOMERULAR FILTRATION RATE 35.0 ML/MIN (>=60)
[2025-02-05 06:38] LABS: BASOPHILS % 0.3 % (0.0-1.0); EOSINOPHILS % 1.7 % (0.0-6.0); LYMPHOCYTES % 4.3 % (18.0-39.1); MONOCYTES % 4.7 % (4.4-11.3); NEUTROPHILS % 86.3 % (38.7-80.0); RED CELL DISTRIBUTION WIDTH 17.2 % (11.7-14.4)
[2025-02-05 07:10] LABS: ABG BASE EXCESS 2.0 mmol/L (-2 - 3); ABG HCO3 26 mmol/L (22-26); ABG OXYGEN SATURATION 91.0 % (95-98); ABG PCO2 37 mmHg (35-45); ABG PH 7.45 (7.35-7.45); ABG PO2 59 mmHg (80-105); ABG TCO2 27
[2025-02-05] MEDS: SOD CHL 0.45%/POT CHL 20MEQ 1,000 ML IV ONE (09:31)
[2025-02-05] MEDS: POTASSIUM CHLORIDE 20MEQ/100ML 200 ML IV ONE (12:40)
[2025-02-05] MEDS: LORAZEPAM INJ 2 MG/ML VIAL IV PRN (22:42)
[2025-02-06] VITALS (50 sets, daily range): BP systolic 97–143; BP diastolic 56–94; PULSE 97–132; RESP 20–42; TEMP 97.6–100.4; O2SAT 92–100
[2025-02-06 06:48] LABS: BASOPHILS % 0.6 % (0.0-1.0); EOSINOPHILS % 2.6 % (0.0-6.0); LYMPHOCYTES % 5.6 % (18.0-39.1); MONOCYTES % 5.2 % (4.4-11.3); NEUTROPHILS % 82.2 % (38.7-80.0); RED CELL DISTRIBUTION WIDTH 17.7 % (11.7-14.4)
[2025-02-06 07:40] LABS: INR 2.16
[2025-02-06 07:47] LABS: EST GLOMERULAR FILTRATION RATE 28.0 ML/MIN (>=60)
[2025-02-06] MEDS: PANTOPRAZOLE SODIUM 40 MG SUSPDR.PKT PO SCH (10:07)
[2025-02-06] MEDS: MEROPENEM 1 GM in SODIUM CHLORIDE 0.9% 100 ML IV SCH (12:35)
[2025-02-06 17:59] LABS: BODY FLUID APPEARANCE SL.CLOUDY; BODY FLUID COLOR YELLOW; BODY FLUID TYPE PLEURAL
[2025-02-06 18:04] LABS: WBC,BODY FLUID 1833 cells/uL
[2025-02-06 23:06] LABS: LYMPHOCYTES,BODY FLUID 12 %; MONO/MACROPHG,BODY FLUID 4 %; NEUTROPHILS,BODY FLUID 52 %; OTHER CELLS,BODY FLUID 32 %
[2025-02-06 23:07] LABS: TOTAL CELLS COUNTED (DIFF) 100
[2025-02-07] VITALS (68 sets, daily range): BP systolic 79–134; BP diastolic 55–101; PULSE 31–135; RESP 14–44; TEMP 97.8–98.8; O2SAT 91–100
[2025-02-07 06:38] LABS: BASOPHILS % 0.6 % (0.0-1.0); EOSINOPHILS % 3.1 % (0.0-6.0); LYMPHOCYTES % 3.5 % (18.0-39.1); MONOCYTES % 5.6 % (4.4-11.3); NEUTROPHILS % 82.2 % (38.7-80.0); RED CELL DISTRIBUTION WIDTH 18.0 % (11.7-14.4)
[2025-02-07 07:06] LABS: EST GLOMERULAR FILTRATION RATE 38.0 ML/MIN (>=60)
[2025-02-07] MEDS: POTASSIUM CHLORIDE 20 MEQ TAB CR PO ONE (10:58)
[2025-02-07] MEDS: LEVALBUTEROL HCL SOLN NEBU 0.63 MG/3 ML NEB ONE (12:56)
[2025-02-07] MEDS: ALBUTEROL SULF 0.083% NEB SOLN 3 ML NEB NEB SCH (13:00)
[2025-02-07 16:12] LABS: ABG BASE EXCESS 6.0 mmol/L (-2 - 3); ABG HCO3 30 mmol/L (22-26); ABG OXYGEN SATURATION 99.0 % (95-98); ABG PCO2 43 mmHg (35-45); ABG PH 7.45 (7.35-7.45); ABG PO2 110 mmHg (80-105); ABG TCO2 32
[2025-02-07] MEDS: ALBUMIN 5% 0.05 GM/ML BTL IV ONE ×2 (18:11→19:45)
[2025-02-07] MEDS: ALBUMIN 5% 250ML 250 ML ONE (18:12)
[2025-02-07] MEDS: PROPOFOL IV EMULSION 10MG/ML 100 ML IV PRN (18:32)
[2025-02-07] MEDS: FENTANYL 2000MCG/NS 250 250 ML IV PRN (18:39)
[2025-02-07 19:08] LABS: ABG BASE EXCESS 5.0 mmol/L (-2 - 3); ABG HCO3 30 mmol/L (22-26); ABG OXYGEN SATURATION 98.0 % (95-98); ABG PCO2 48 mmHg (35-45); ABG PH 7.40 (7.35-7.45); ABG PO2 99 mmHg (80-105); ABG TCO2 31
[2025-02-07] MEDS: NOREPINEPHRINE 8 MG/D5W 250 ML 250 ML IV SCH (20:11)
[2025-02-08] VITALS (60 sets, daily range): BP systolic 86–108; BP diastolic 55–76; PULSE 32–129; RESP 12–30; TEMP 98–98.7; O2SAT 98–100
[2025-02-08 04:56] LABS: BASOPHILS % 0.9 % (0.0-1.0); EOSINOPHILS % 1.9 % (0.0-6.0); LYMPHOCYTES % 3.6 % (18.0-39.1); MONOCYTES % 4.5 % (4.4-11.3); NEUTROPHILS % 85.9 % (38.7-80.0); RED CELL DISTRIBUTION WIDTH 18.3 % (11.7-14.4)
[2025-02-08 05:23] LABS: EST GLOMERULAR FILTRATION RATE 32 ML/MIN (>=60)
[2025-02-08 09:13] LABS: EOSINOPHILS % (MANUAL) 2 % (0-7); LYMPHOCYTES % (MANUAL) 1 % (19-48); MONOCYTES % (MANUAL) 3 % (3.4-9.0); NEUTROPHILS % (MANUAL) 94 % (40-74); NUCLEATED RED BLOOD CELLS 1; PLATELET ESTIMATE SLIGHTLY DECREASED; PLATELET MORPHOLOGY COMMENT NORMAL; RBC MORPHOLOGY COMMENT ABNORMAL
[2025-02-08 09:58] LABS: ABG PH 7.37 (7.35-7.45)
[2025-02-08 09:59] LABS: ABG BASE EXCESS 2.0 mmol/L (-2 - 3); ABG HCO3 27 mmol/L (22-26); ABG OXYGEN SATURATION 97.0 % (95-98); ABG PCO2 48 mmHg (35-45); ABG PO2 92 mmHg (80-105); ABG TCO2 29
[2025-02-08] MEDS: MIDAZOLAM HCL 2 MG/2 ML VIAL ONE (10:58)
[2025-02-08] MEDS: NOREPINEPHRINE 8 MG/D5W 250 ML 250 ML ONE (11:21)
[2025-02-08] MEDS: ALBUMIN 25% 25GM 100ML 0.25 GM/ML BTL IV ONE (11:56)
[2025-02-08 15:49] LABS: ABG PCO2 47 mmHg (35-45); ABG PH 7.38 (7.35-7.45)
[2025-02-08 15:50] LABS: ABG BASE EXCESS 3.0 mmol/L (-2 - 3); ABG HCO3 28 mmol/L (22-26); ABG OXYGEN SATURATION 97.0 % (95-98); ABG PO2 94 mmHg (80-105); ABG TCO2 30
[2025-02-08 17:55] LABS: TOTAL PROTEIN,BODY FLUID 3.0 g/dL
[2025-02-09] VITALS (84 sets, daily range): BP systolic 79–107; BP diastolic 46–64; PULSE 97–115; RESP 9–21; TEMP 97.8–98.6; O2SAT 97–100
[2025-02-09 05:34] LABS: BASOPHILS % 0.6 % (0.0-1.0); EOSINOPHILS % 2.4 % (0.0-6.0); LYMPHOCYTES % 3.2 % (18.0-39.1); MONOCYTES % 4.5 % (4.4-11.3); NEUTROPHILS % 86.0 % (38.7-80.0); RED CELL DISTRIBUTION WIDTH 18.7 % (11.7-14.4)
[2025-02-09 06:14] LABS: EST GLOMERULAR FILTRATION RATE 24.0 ML/MIN (>=60)
[2025-02-09 07:32] LABS: BAND NEUTROPHILS % (MANUAL) 3 %; EOSINOPHILS % (MANUAL) 1 % (0-7); LYMPHOCYTES % (MANUAL) 1 % (19-48); MONOCYTES % (MANUAL) 6 % (3.4-9.0); NEUTROPHILS % (MANUAL) 89 % (40-74); PLATELET ESTIMATE ADEQUATE; PLATELET MORPHOLOGY COMMENT NORMAL
[2025-02-09 10:55] LABS: ABG BASE EXCESS 4.0 mmol/L (-2 - 3); ABG HCO3 30 mmol/L (22-26); ABG OXYGEN SATURATION 99.0 % (95-98); ABG PCO2 55 mmHg (35-45); ABG PH 7.34 (7.35-7.45); ABG PO2 141 mmHg (80-105); ABG TCO2 31
[2025-02-09] MEDS: ALBUMIN 25% 25GM 100ML 0.25 GM/ML BTL IV ONE (11:17)
[2025-02-09] MEDS: VANCOMYCIN 250MG/5ML ORAL SOLN PO SCH (11:50)
[2025-02-09] MEDS: POTASSIUM CHLORIDE 20 MEQ TAB CR PO STA (11:51)
[2025-02-10] VITALS (51 sets, daily range): BP systolic 90–114; BP diastolic 50–66; PULSE 83–114; RESP 14–24; TEMP 98–99.6; O2SAT 98–100
[2025-02-10 05:45] LABS: BASOPHILS % 0.8 % (0.0-1.0); EOSINOPHILS % 2.5 % (0.0-6.0); LYMPHOCYTES % 3.1 % (18.0-39.1); MONOCYTES % 4.9 % (4.4-11.3); NEUTROPHILS % 85.0 % (38.7-80.0); RED CELL DISTRIBUTION WIDTH 19.2 % (11.7-14.4)
[2025-02-10 06:27] LABS: EST GLOMERULAR FILTRATION RATE 22.0 ML/MIN (>=60)
[2025-02-10 10:26] LABS: EOSINOPHILS % (MANUAL) 1 % (0-7); LYMPHOCYTES % (MANUAL) 3 % (19-48); MONOCYTES % (MANUAL) 6 % (3.4-9.0); NEUTROPHILS % (MANUAL) 90 % (40-74); PLATELET ESTIMATE ADEQUATE; PLATELET MORPHOLOGY COMMENT NORMAL; RBC MORPHOLOGY COMMENT NORMAL
[2025-02-10 10:50] LABS: ABG BASE EXCESS 5.0 mmol/L (-2 - 3); ABG HCO3 29 mmol/L (22-26); ABG OXYGEN SATURATION 98.0 % (95-98); ABG PCO2 44 mmHg (35-45); ABG PH 7.44 (7.35-7.45); ABG PO2 106 mmHg (80-105); ABG TCO2 31
[2025-02-10 10:50] LABS: ABG BASE EXCESS 2.0 mmol/L (-2 - 3); ABG HCO3 26 mmol/L (22-26); ABG OXYGEN SATURATION 91.0 % (95-98); ABG PCO2 37 mmHg (35-45); ABG PH 7.45 (7.35-7.45); ABG PO2 59 mmHg (80-105); ABG TCO2 27
[2025-02-10 10:51] LABS: ABG BASE EXCESS 3.0 mmol/L (-2 - 3); ABG HCO3 28 mmol/L (22-26); ABG OXYGEN SATURATION 97.0 % (95-98); ABG PCO2 47 mmHg (35-45); ABG PH 7.38 (7.35-7.45); ABG PO2 94 mmHg (80-105); ABG TCO2 30
[2025-02-10 10:51] LABS: ABG BASE EXCESS 1.0 mmol/L (-2 - 3); ABG HCO3 27 mmol/L (22-26); ABG OXYGEN SATURATION 95.0 % (95-98); ABG PCO2 47 mmHg (35-45); ABG PH 7.37 (7.35-7.45); ABG PO2 81 mmHg (80-105); ABG TCO2 28
[2025-02-10 10:51] LABS: ABG BASE EXCESS 2.0 mmol/L (-2 - 3); ABG HCO3 27 mmol/L (22-26); ABG OXYGEN SATURATION 97.0 % (95-98); ABG PCO2 48 mmHg (35-45); ABG PH 7.37 (7.35-7.45); ABG PO2 92 mmHg (80-105); ABG TCO2 29
[2025-02-10 10:51] LABS: ABG BASE EXCESS 6.0 mmol/L (-2 - 3); ABG HCO3 30 mmol/L (22-26); ABG OXYGEN SATURATION 99.0 % (95-98); ABG PCO2 43 mmHg (35-45); ABG PH 7.45 (7.35-7.45); ABG PO2 110 mmHg (80-105); ABG TCO2 32
[2025-02-10 10:51] LABS: ABG BASE EXCESS 4.0 mmol/L (-2 - 3); ABG HCO3 30 mmol/L (22-26); ABG OXYGEN SATURATION 99.0 % (95-98); ABG PCO2 55 mmHg (35-45); ABG PH 7.34 (7.35-7.45); ABG PO2 141 mmHg (80-105); ABG TCO2 31
[2025-02-10 11:09] LABS: ABG BASE EXCESS 5.0 mmol/L (-2 - 3); ABG HCO3 30 mmol/L (22-26); ABG OXYGEN SATURATION 98.0 % (95-98); ABG PCO2 48 mmHg (35-45); ABG PH 7.40 (7.35-7.45); ABG PO2 99 mmHg (80-105); ABG TCO2 31
[2025-02-10 11:30] LABS: ABG PH 7.37 (7.35-7.45)
[2025-02-10 11:31] LABS: ABG BASE EXCESS 1.0 mmol/L (-2 - 3); ABG HCO3 27 mmol/L (22-26); ABG OXYGEN SATURATION 95.0 % (95-98); ABG PCO2 47 mmHg (35-45); ABG PO2 81 mmHg (80-105); ABG TCO2 28
[2025-02-10] MEDS: FLUCONAZOLE 100 MG TAB PO SCH (11:53)
[2025-02-10 13:09] LABS: BODY FLUID APPEARANCE CLOUDY; BODY FLUID COLOR YELLOW; BODY FLUID TYPE PERITONEAL
[2025-02-10] MEDS: ALBUMIN 25% 25GM 100ML 0.25 GM/ML BTL IV ONE (14:33)
[2025-02-10 19:10] LABS: WBC,BODY FLUID 29 cells/uL
[2025-02-10 19:11] LABS: LYMPHOCYTES,BODY FLUID 56 %; MONO/MACROPHG,BODY FLUID 10 %; NEUTROPHILS,BODY FLUID 22 %; OTHER CELLS,BODY FLUID 12 %; TOTAL CELLS COUNTED (DIFF) 100
[2025-02-11] VITALS (76 sets, daily range): BP systolic 90–119; BP diastolic 49–72; PULSE 95–118; RESP 12–31; TEMP 100.2–102; O2SAT 99–100
[2025-02-11 06:57] LABS: BASOPHILS % 0.5 % (0.0-1.0); EOSINOPHILS % 2.7 % (0.0-6.0); LYMPHOCYTES % 3.4 % (18.0-39.1); MONOCYTES % 7.3 % (4.4-11.3); NEUTROPHILS % 83.1 % (38.7-80.0); RED CELL DISTRIBUTION WIDTH 19.9 % (11.7-14.4)
[2025-02-11 07:41] LABS: EST GLOMERULAR FILTRATION RATE 27.0 ML/MIN (>=60)
[2025-02-11] MEDS: ALBUMIN 25% 25GM 100ML 0.25 GM/ML BTL IV SCH (08:35)
[2025-02-11] MEDS: ACETAMINOPHEN 325 MG TAB PO PRN (09:40)
[2025-02-11 09:47] LABS: EOSINOPHILS % (MANUAL) 1 % (0-7); LYMPHOCYTES % (MANUAL) 5 % (19-48); MONOCYTES % (MANUAL) 9 % (3.4-9.0); NEUTROPHILS % (MANUAL) 85 % (40-74); PLATELET ESTIMATE ADEQUATE; PLATELET MORPHOLOGY COMMENT NORMAL; RBC MORPHOLOGY COMMENT NORMAL
[2025-02-11] MEDS ORDERED: MIDAZOLAM HCL 2 MG/2 ML VIAL ONE (11:14)
[2025-02-11] MEDS ORDERED: SUCCINYLCHOLINE CHLORIDE 20 MG/ML 10ML VIAL ONE (11:14)
[2025-02-11] MEDS ORDERED: WATER STERILE 10 ML VIAL ONE (11:14)
[2025-02-11] MEDS ORDERED: VECURONIUM BROMIDE FOR INJ 20 MG VIAL ONE (11:14)
[2025-02-11] MEDS ORDERED: ETOMIDATE 2 MG/ML 10 ML INJ IV ONE (11:14)
[2025-02-11] MEDS: NOREPINEPHRINE 8 MG/D5W 250 ML 250 ML ONE (11:42)
[2025-02-11] MEDS: MEROPENEM 1 GM in SODIUM CHLORIDE 0.9% 100 ML IV SCH (11:57)
[2025-02-11] MEDS: FLUCONAZOLE 200 MG/100 ML 100 ML IV SCH (16:16)
[2025-02-11 19:44] LABS: GLUCOSE,BODY FLUID 150.0 mg/dL; TOTAL PROTEIN,BODY FLUID 2.4 g/dL
[2025-02-12] VITALS (95 sets, daily range): BP systolic 86–118; BP diastolic 52–79; PULSE 88–110; RESP 13–28; TEMP 97.8–99.1; O2SAT 100
[2025-02-12 06:47] LABS: BASOPHILS % 0.6 % (0.0-1.0); EOSINOPHILS % 2.4 % (0.0-6.0); LYMPHOCYTES % 3.1 % (18.0-39.1); MONOCYTES % 7.8 % (4.4-11.3); NEUTROPHILS % 82.9 % (38.7-80.0); RED CELL DISTRIBUTION WIDTH 20.0 % (11.7-14.4)
[2025-02-12 07:10] LABS: EST GLOMERULAR FILTRATION RATE 26.0 ML/MIN (>=60)
[2025-02-12] MEDS: FUROSEMIDE INJ 10 MG/ML 2 ML VIAL IV ONE (08:02)
[2025-02-12] MEDS: SODIUM CHLORIDE 0.9% 250ML 250 ML IV ONE (08:03)
[2025-02-12 10:28] LABS: BAND NEUTROPHILS % (MANUAL) 1 %; BASOPHILS % (MANUAL) 1 % (0-1.5); EOSINOPHILS % (MANUAL) 4 % (0-7); LYMPHOCYTES % (MANUAL) 4 % (19-48); MONOCYTES % (MANUAL) 3 % (3.4-9.0); NEUTROPHILS % (MANUAL) 87 % (40-74); PLATELET ESTIMATE ADEQUATE; PLATELET MORPHOLOGY COMMENT NORMAL
[2025-02-13] VITALS (67 sets, daily range): BP systolic 93–113; BP diastolic 50–70; PULSE 103–116; RESP 13–22; TEMP 97.2–98.2; O2SAT 100
[2025-02-13 07:32] LABS: BASOPHILS % 0.5 % (0.0-1.0); EOSINOPHILS % 4.0 % (0.0-6.0); LYMPHOCYTES % 2.7 % (18.0-39.1); MONOCYTES % 6.6 % (4.4-11.3); NEUTROPHILS % 82.0 % (38.7-80.0); RED CELL DISTRIBUTION WIDTH 21.5 % (11.7-14.4)
[2025-02-13 08:02] LABS: EST GLOMERULAR FILTRATION RATE 30.0 ML/MIN (>=60)
[2025-02-13 10:39] LABS: ABG BASE EXCESS -1.0 mmol/L (-2 - 3); ABG HCO3 23 mmol/L (22-26); ABG OXYGEN SATURATION 100.0 % (95-98); ABG PCO2 34 mmHg (35-45); ABG PH 7.44 (7.35-7.45); ABG PO2 162 mmHg (80-105); ABG TCO2 24
[2025-02-13] MEDS: SODIUM CHLORIDE 0.9% 500ML 500 ML IV ONE (18:31)
[2025-02-14] VITALS (36 sets, daily range): BP systolic 105–123; BP diastolic 58–79; PULSE 109–125; RESP 15–26; TEMP 97.6–100; O2SAT 100
[2025-02-14 06:54] LABS: BASOPHILS % 0.6 % (0.0-1.0); EOSINOPHILS % 5.1 % (0.0-6.0); LYMPHOCYTES % 3.3 % (18.0-39.1); MONOCYTES % 10.9 % (4.4-11.3); NEUTROPHILS % 75.2 % (38.7-80.0); RED CELL DISTRIBUTION WIDTH 22.4 % (11.7-14.4)
[2025-02-14 07:09] LABS: EST GLOMERULAR FILTRATION RATE 38.0 ML/MIN (>=60)
[2025-02-14] MEDS ORDERED: HYDROCODONE/APAP 5MG-325MG TAB PO PRN (14:15)
[2025-02-15] VITALS (27 sets, daily range): BP systolic 103–124; BP diastolic 64–80; PULSE 77–117; RESP 11–21; TEMP 98–98.4; O2SAT 100
[2025-02-15 07:01] LABS: BASOPHILS % 1.2 % (0.0-1.0); EOSINOPHILS % 4.1 % (0.0-6.0); LYMPHOCYTES % 3.6 % (18.0-39.1); MONOCYTES % 9.0 % (4.4-11.3); NEUTROPHILS % 77.9 % (38.7-80.0); RED CELL DISTRIBUTION WIDTH 23.5 % (11.7-14.4)
[2025-02-15 07:47] LABS: EST GLOMERULAR FILTRATION RATE 44.0 ML/MIN (>=60)
[2025-02-15 10:05] LABS: ABG BASE EXCESS -1.0 mmol/L (-2 - 3); ABG HCO3 24 mmol/L (22-26); ABG OXYGEN SATURATION 99.0 % (95-98); ABG PCO2 36 mmHg (35-45); ABG PH 7.42 (7.35-7.45); ABG PO2 145 mmHg (80-105); ABG TCO2 25
[2025-02-16] VITALS (31 sets, daily range): BP systolic 112–124; BP diastolic 71–93; PULSE 107–118; RESP 15–22; TEMP 97.8–99; O2SAT 100
[2025-02-16 06:44] LABS: BASOPHILS % 0.9 % (0.0-1.0); EOSINOPHILS % 6.0 % (0.0-6.0); LYMPHOCYTES % 3.9 % (18.0-39.1); MONOCYTES % 8.6 % (4.4-11.3); NEUTROPHILS % 77.8 % (38.7-80.0); RED CELL DISTRIBUTION WIDTH 24.4 % (11.7-14.4)
[2025-02-16 07:18] LABS: EST GLOMERULAR FILTRATION RATE 48.0 ML/MIN (>=60)
[2025-02-16 09:29] LABS: ABG BASE EXCESS 0.0 mmol/L (-2 - 3); ABG HCO3 20 mmol/L (22-26); ABG OXYGEN SATURATION 100.0 % (95-98); ABG PCO2 18 mmHg (35-45); ABG PH 7.67 (7.35-7.45); ABG PO2 201 mmHg (80-105); ABG TCO2 21
[2025-02-16 10:02] LABS: ABG BASE EXCESS 0.0 mmol/L (-2 - 3); ABG HCO3 24 mmol/L (22-26); ABG OXYGEN SATURATION 99.0 % (95-98); ABG PCO2 32 mmHg (35-45); ABG PH 7.48 (7.35-7.45); ABG PO2 149 mmHg (80-105); ABG TCO2 25
[2025-02-17] VITALS (24 sets, daily range): BP systolic 106–126; BP diastolic 68–86; PULSE 75–113; RESP 13–23; TEMP 97.7–98.4; O2SAT 93–100
[2025-02-17 06:43] LABS: BASOPHILS % 0.7 % (0.0-1.0); EOSINOPHILS % 6.8 % (0.0-6.0); LYMPHOCYTES % 3.3 % (18.0-39.1); MONOCYTES % 8.4 % (4.4-11.3); NEUTROPHILS % 78.9 % (38.7-80.0); RED CELL DISTRIBUTION WIDTH 24.2 % (11.7-14.4)
[2025-02-17 07:12] LABS: EST GLOMERULAR FILTRATION RATE 56.0 ML/MIN (>=60)
[2025-02-17 10:19] LABS: ABG BASE EXCESS 0.0 mmol/L (-2 - 3); ABG HCO3 25 mmol/L (22-26); ABG OXYGEN SATURATION 99.0 % (95-98); ABG PCO2 38 mmHg (35-45); ABG PH 7.42 (7.35-7.45); ABG PO2 116 mmHg (80-105); ABG TCO2 26
[2025-02-18] VITALS (21 sets, daily range): BP systolic 106–124; BP diastolic 60–80; PULSE 91–105; RESP 16–23; TEMP 98.2; O2SAT 100
[2025-02-18 06:53] LABS: BASOPHILS % 0.8 % (0.0-1.0); EOSINOPHILS % 8.9 % (0.0-6.0); LYMPHOCYTES % 5.7 % (18.0-39.1); MONOCYTES % 9.4 % (4.4-11.3); NEUTROPHILS % 73.4 % (38.7-80.0); RED CELL DISTRIBUTION WIDTH 24.0 % (11.7-14.4)
[2025-02-18 07:16] LABS: EST GLOMERULAR FILTRATION RATE 64.0 ML/MIN (>=60)
[2025-02-19] MEDS ORDERED: ALBUTEROL0.63 MG/3 NEB (12:08)
[2025-02-19] MEDS ORDERED: MUCINEX DM ER1 EACH PO (12:08)
[2025-02-19] MEDS ORDERED: ENULOSE10 GM/15 M PO (12:08)
[2025-02-19] MEDS ORDERED: IPRATROPIU0.2 MG/1 M INH (12:08)
== END 2025-02-18 15:28 | disposition hospice, inpatient (51) | DRG 870 ==
LOC: ER 15:50 → ERHOLD 17:17 → MED/SURG 23:41 → ICU 01-28 18:57 → MED/SURG2 01-29 14:45 → ICU 01-31 12:03
PROVIDERS: ADMIT Internal Medicine; ATTEND Internal Medicine
PROC: 3E0333Z Introduction of Anti-inflammatory into Peripheral Vein, Percutaneous Approach (ICD-10-PCS; 2025-01-27)
PROC: 4A133R1 Monitoring of Arterial Saturation, Peripheral, Percutaneous Approach (ICD-10-PCS; 2025-01-31)
PROC: 0T9B70Z Drainage of Bladder with Drainage Device, Via Natural or Artificial Opening (ICD-10-PCS; 2025-01-31)
PROC: 0W9G3ZZ Drainage of Peritoneal Cavity, Percutaneous Approach (ICD-10-PCS; 2025-02-01)
PROC: 5A0935A Assistance with Respiratory Ventilation, Less than 24 Consecutive Hours, High Flow/Velocity Cannula (ICD-10-PCS; 2025-02-01)
PROC: 30233K1 Transfusion of Nonautologous Frozen Plasma into Peripheral Vein, Percutaneous Approach (ICD-10-PCS; 2025-02-06)
PROC: 5A1955Z Respiratory Ventilation, Greater than 96 Consecutive Hours (ICD-10-PCS; principal; 2025-02-07)
PROC: 0BH17EZ Insertion of Endotracheal Airway into Trachea, Via Natural or Artificial Opening (ICD-10-PCS; 2025-02-07)
PROC: 02H633Z Insertion of Infusion Device into Right Atrium, Percutaneous Approach (ICD-10-PCS; 2025-02-07)
PROC: 3E043XZ Introduction of Vasopressor into Central Vein, Percutaneous Approach (ICD-10-PCS; 2025-02-07)
PROC: 0BC38ZZ Extirpation of Matter from Right Main Bronchus, Via Natural or Artificial Opening Endoscopic (ICD-10-PCS; 2025-02-08)
PROC: 0W9G3ZZ Drainage of Peritoneal Cavity, Percutaneous Approach (ICD-10-PCS; 2025-02-10)
PROC: 30233N1 Transfusion of Nonautologous Red Blood Cells into Peripheral Vein, Percutaneous Approach (ICD-10-PCS; 2025-02-12)
DX: A41.1 Sepsis due to other specified staphylococcus (principal); K76.7 Hepatorenal syndrome; K65.2 Spontaneous bacterial peritonitis; J96.01 Acute respiratory failure with hypoxia; E43 Unspecified severe protein-calorie malnutrition; G93.41 Metabolic encephalopathy; J69.0 Pneumonitis due to inhalation of food and vomit; B37.1 Pulmonary candidiasis; R65.21 Severe sepsis with septic shock; J90 Pleural effusion, not elsewhere classified; D68.4 Acquired coagulation factor deficiency; J81.1 Chronic pulmonary edema; E87.0 Hyperosmolality and hypernatremia; E87.1 Hypo-osmolality and hyponatremia; N17.9 Acute kidney failure, unspecified; J98.11 Atelectasis; N39.0 Urinary tract infection, site not specified; Z51.5 Encounter for palliative care; Z66 Do not resuscitate; K76.82 Hepatic encephalopathy; K70.31 Alcoholic cirrhosis of liver with ascites; I27.20 Pulmonary hypertension, unspecified; D63.8 Anemia in other chronic diseases classified elsewhere; D69.59 Other secondary thrombocytopenia; I12.9 Hypertensive chronic kidney disease with stage 1 through stage 4 chronic kidney disease, or unspecified chronic kidney disease; N18.30 Chronic kidney disease, stage 3 unspecified; E87.6 Hypokalemia; E03.9 Hypothyroidism, unspecified; R19.7 Diarrhea, unspecified; K21.9 Gastro-esophageal reflux disease without esophagitis; R53.81 Other malaise; R33.9 Retention of urine, unspecified; D50.9 Iron deficiency anemia, unspecified; R45.1 Restlessness and agitation; F10.10 Alcohol abuse, uncomplicated; M47.812 Spondylosis without myelopathy or radiculopathy, cervical region; Z68.21 Body mass index [BMI] 21.0-21.9, adult; Z79.890 Hormone replacement therapy; Z98.1 Arthrodesis status; F17.210 Nicotine dependence, cigarettes, uncomplicated; Z82.49 Family history of ischemic heart disease and other diseases of the circulatory system
CPT/HCPCS: 32555; 36415; 36569; 36600; 49083; 70450; 71045; 71260; 72125; 74018; 74177; 74470; 76604; 76705; 80048; 80053; 81001; 82040; 82140; 82607; 82728; 82746; 82805; 82945; 82948; 83540; 83605; 83615; 83630; 83930; 83993; 84157; 84466; 85025; 85045; 85610; 85730; 86850; 86900; 86920; 87040; 87070; 87071; 87086; 87186; 87205; 87335; 88112; 88305; 89051; 93005; 93306; 94002; 94003; 94640; 94660; 94667; 94669; 94799; 96361; 99252; 99284; C1729; J0330; J0696; J1450; J1756; J1938; J1940; J2060; J2185; J2250; J2270; J2353; J2354; J2405; J2470; J2543; J3373; J3480; J7030; J7040; J7050; J7070; P9016; P9017; P9047; Q9967

== ENCOUNTER 2025-02-18 15:38 | Inpatient (IN) | payer OTHER ==
[2025-02-18] VITALS (10 sets, daily range): BP systolic 116–123; BP diastolic 70–85; PULSE 97–108; RESP 16–20; TEMP 98.6; O2SAT 100
[~2025-02-18] VITALS: Ht 188 cm; Wt 76.2 kg
[~2025-02-18 15:38] MED LIST changes: +INDERAL10 MG PO
[2025-02-18] MEDS ORDERED: ACETAMINOPHEN 650 MG SUPP PR PRN (16:15)
[2025-02-18] MEDS ORDERED: ONDANSETRON HCL INJ 2MG/ML 2ML 2 MG/ML VIAL IV PRN (16:15)
[2025-02-18] MEDS: SCOPOLAMINE 1 MG PATCH TOP PRN (16:27)
[2025-02-18] MEDS: LORAZEPAM INJ 2 MG/ML VIAL IV PRN (17:33)
[2025-02-19] VITALS (7 sets, daily range): BP systolic 125–130; BP diastolic 78–87; PULSE 100–110; RESP 11–18; TEMP 97–98; O2SAT 99–100
[2025-02-19] MEDS: Morphine 4mg INJECTION 4 MG/ML INJ IV PRN (08:06)
[2025-02-19] MEDS ORDERED: IPRATROPIU0.2 MG/1 M INH (12:08)
[2025-02-19] MEDS ORDERED: ALBUTEROL0.63 MG/3 NEB (12:08)
[2025-02-19] MEDS ORDERED: MUCINEX DM ER1 EACH PO (12:08)
[2025-02-19] MEDS ORDERED: ENULOSE10 GM/15 M PO (12:08)
== END 2025-02-19 14:50 | disposition hospice, inpatient (51) | DRG 951 ==
LOC: ICU 15:38
PROVIDERS: ADMIT Internal Medicine; ATTEND Internal Medicine
DX: Z51.5 Encounter for palliative care (principal); I10 Essential (primary) hypertension; K21.9 Gastro-esophageal reflux disease without esophagitis; D64.9 Anemia, unspecified; K70.31 Alcoholic cirrhosis of liver with ascites; E03.9 Hypothyroidism, unspecified; F10.21 Alcohol dependence, in remission; R00.0 Tachycardia, unspecified; J44.9 Chronic obstructive pulmonary disease, unspecified; Z91.81 History of falling; Z98.1 Arthrodesis status; Z87.891 Personal history of nicotine dependence
CPT/HCPCS: 94799; J2060; J2270